=== PATIENT | female | born 1945 | race Caucasian/White ===

== ENCOUNTER → 2017-10-18 09:13 | Outpatient (CLI) | payer MEDICARE, OTHER, SELFPAY ==
--- NOTE | 2017-10-18 09:18 | RAD_ITS ---
STUDY: X-RAY CHEST REASON FOR EXAM: Female, 72 years old. 2 week history of cough. TECHNIQUE: PA and lateral views of the chest. COMPARISON: Comparison is made with prior study dated June 27, 2016. FINDINGS: The lungs are clear and expanded. There is no demonstrated pleural abnormality. Normal size heart. Normal mediastinum and rafaela. Normal visualized pulmonary arteries. There is atherosclerotic calcification of the aortic arch with tortuosity. There are diffuse degenerative changes of the visualized thoracic spine. Normal visualized ribs, clavicles, and shoulders. There is no demonstrated abnormality of the visualized soft tissue structures of the upper abdomen. RAD/Chest PA and Lateral IMPRESSION: No acute abnormality is seen. Electronically Signed: Twin Mcgill MD at 9:54 EDT Tel [phone], Service support ,
== END ==
PROVIDERS: Family Provider Nurse Practitioner; PCP Nurse Practitioner; Visit Provider Nurse Practitioner
DX: R05 Cough (principal)
CPT/HCPCS: 71046

== ENCOUNTER → 2017-10-24 19:59 | Outpatient (CLI) | payer MEDICARE, OTHER, SELFPAY | PROVIDERS: Family Provider Nurse Practitioner; PCP Nurse Practitioner; Visit Provider Internal Medicine Critical Care Medicine | DX: G47.33 Obstructive sleep apnea (adult) (pediatric) (principal) | CPT/HCPCS: 95810 ==

== ENCOUNTER → 2017-11-22 20:00 | Outpatient (CLI) | payer MEDICARE, OTHER, SELFPAY | PROVIDERS: Family Provider Nurse Practitioner; PCP Nurse Practitioner; Visit Provider Nurse Practitioner Acute Care | DX: G47.30 Sleep apnea, unspecified (principal) | CPT/HCPCS: 95811 ==

== ENCOUNTER → 2018-04-05 12:42 | Outpatient (CLI) | payer MEDICARE, OTHER, SELFPAY ==
--- NOTE | 2018-04-05 12:47 | BI_ITS ---
MAMMOGRAPHY - BILATERAL SCREENING 3-D MARIA DEL CARMEN SYNTHESIS REASON FOR EXAM: Female, 72 years old. Bilateral Screening 3-D tomosynthesis PERTINENT HISTORY: No significant family history. TECHNIQUE: 2-D mammograms and 3-D Maria Del Carmen synthesis of the breast (s) were performed. CAD was performed. COMPARISON: March 30, 2017 FINDINGS: The breast composition is composed of scattered fibroglandular density. Scattered benign calcifications are seen. No dense spiculated masses or suspicious microcalcifications are identified. No architectural distortion is identified. There is no skin thickening or retraction. There has been no significant change since the prior study. BI/SCREENING MAMM (CAD), BILAT IMPRESSION: No mammographic signs of malignancy. Routine yearly mammograms recommended. ASSESSMENT CATEGORY: BIRADS Category 1: Negative. A letter regarding these results will be sent to the patient by the facility within 30 days. FOLLOW UP RECOMMENDATION: Yearly follow up mammogram recommended. (A) Approximately 10% of breast cancers are not detected by mammography. A normal mammogram should not delay biopsy of a clinically suspicious abnormality. Electronically Signed: Donis Lagos MD at 10:51 EST , Service support ,
== END ==
PROVIDERS: Family Provider Nurse Practitioner; PCP Nurse Practitioner; Visit Provider Nurse Practitioner
DX: Z12.31 Encounter for screening mammogram for malignant neoplasm of breast (principal)
CPT/HCPCS: 77063; 77067

== ENCOUNTER 2018-06-13 12:21 | Emergency (ER) | payer MEDICARE, OTHER, SELFPAY ==
[2018-04-09 09:40] VITALS: BMI 29.9
[2018-06-13 12:24] VITALS: BP 116/71; PULSE 100; RESP 17; TEMP 36.8; O2SAT 95; O2SAT 96; BMI 27.0
[2018-06-13 12:39] VITALS: TEMP 36.8
--- NOTE | 2018-06-13 12:40 | EKG12_ITS ---
Test Reason : SYNCOPE Blood Pressure : / mmHG Vent. Rate : 095 BPM Atrial Rate : 095 BPM P-R Int : 128 ms QRS Dur : 080 ms QT Int : 344 ms P-R-T Axes : 000 023 083 degrees QTc Int : 432 ms Normal sinus rhythm Nonspecific T wave abnormality Abnormal ECG Confirmed by ANDREW MAR, ANUP ([id number]), assistant editor RACHANA ANGEL ([id number]) on 06/19/2018 8:52:14 AM Referred By: MAXIMUS Confirmed By:ANUP MORALES MD
[2018-06-13] MEDS: Ondansetron 4 MG/2 ML Vial IV (13:06)
[2018-06-13] MEDS: 0.9% Normal Saline 1,000 ML 1000 ML IV (13:06)
[2018-06-13] MEDS: Morphine 4 MG/ML Syringe IV (13:07)
[2018-06-13 13:12] LABS: Absolute Lymphocyte Count 1.25 X10^3/ul (0.83-4.51); Basophil# 0.02 X10^3/uL; Basophil% 0.1 % (0-1); Eosinophil# 0.01 X10^3/uL; Eosinophils% 0.1 % (0-5); Hematocrit 40.4 % (37-47); Hemoglobin 13.1 g/dl (12.0-15.0); Lymphocyte # 1.25 X10^3/ul (4.0); Lymphocyte % 8.8 % (19-41); Mean Corp Hgb Conc 32.4 g/gl (32-36); Mean Corpuscular Hgb 31.8 pg (27.0-32.0); Mean Corpuscular Volume 98.1 fL (81-99); Mean Platelet Vol. 10.5 fl (6.2-12.0); Monocyte# 0.86 X10^3/uL; Monocyte% 6.1 % (0-10); Neutrophil # 12.01 X10^3/uL (2.7-7.7); Neutrophil % 84.7 % (47-70); POSITIVE COUNT NO; POSITIVE DIFFERENTIAL NO; POSITIVE MORPHOLOGY NO; Platelet Count 240 K/mm3 (150-450); RBC Distribution Width CV 13.8 % (11.6-14.6); RBC Distribution Width SD 49.1 fl (35.1-43.9); Red Blood Count 4.12 M/mm3 (4.2-5.4); White Blood Count 14.2 K/mm3 (4.4-11.0)
[2018-06-13 13:22] VITALS: TEMP 37
[2018-06-13 13:26] LABS: ALB/GLOB Ratio 1.1 RATIO (0.9-2.4); AST(SGOT) 15 U/L (15-37); Alanine Aminotransfer ALT/SGPT 20 U/L (13-56); Albumin, Serum 3.8 g/dL (3.2-5.0); Alkaline Phosphatase 85 U/L (45-117); Anion Gap 7 (5-15); BUN 17 mg/dL (7-18); BUN/Creat Ratio 20.3 RATIO (10-20); Calcium,Total 8.3 mg/dL (8.5-10.1); Chloride 109 mmol/L (98-107); Creatinine, Serum 0.84 mg/dL (0.55-1.02); EST Glomerular Filtration Rate 71 mL/min (>60); Est Glom Filt Rate - Afr Amer 86 mL/min (>60); Estimated Creatinine Clearance 58.87 ml/min; Globulin 3.6 g/dL (2.2-4.2); Glucose 95 mg/dL (74-106); Protein, Total 7.4 g/dL (6.4-8.2); Sodium Level 139 mmol/L (136-145)
[2018-06-13 13:33] LABS: Lactic Acid 0.9 mmol/L (0.4-2.0)
--- NOTE | 2018-06-13 14:15 | RAD_ITS ---
STUDY: X-RAY CHEST REASON FOR EXAM: Female, 72 years old. Left-sided chest wall pain with deep breathing. Fever. TECHNIQUE: AP and lateral views of the chest. COMPARISON: Comparison is made with prior examination dated October 18, 2017. FINDINGS: EKG electrodes are seen. Hyperinflation. The lungs are clear. There is no demonstrated pleural abnormality. Normal size heart. Normal mediastinum and rafaela. Normal visualized pulmonary arteries. Normal visualized aortic arch and descending thoracic aorta. Normal visualized thoracic spine. Normal visualized ribs, clavicles, and shoulders. There is no demonstrated abnormality of the visualized soft tissue structures of the upper abdomen. RAD/Chest PA and Lateral IMPRESSION: Hyperinflation. Electronically Signed: Twin Mcgill, at 14:54 EST , Service support ,
[2018-06-13 15:30] VITALS: BP 103/68; BP 105/34; BP 116/59; PULSE 88; PULSE 93; PULSE 97
[2018-06-13 15:39] VITALS: BP 105/54; PULSE 93; RESP 16; O2SAT 97
--- NOTE | 2018-06-13 15:45 | ED.DCSUM_ITS ---
- ER Visit Summary Date of Service: 06/13/18 Chief Complaint: Fever and cough History of Present Illness: The patient is a 72 F who sees Nayely Barajas. She reports she has a fever and cough that began yesterday. She has not felt well for the past 2 days and has been laying in bed. She has not been taking in much in the way of fluids. Reports that today she had been standing in the kitchen and she had been up for less than 1 minute when she began very lightheaded. She sat down and then had a syncopal episode. She denies any injury from this. States later this afternoon she was sitting and stood up and had been standing for less than 1 minute when she had a second syncopal episode. She again denies any injury from this. No neck, back, shoulder, wrist, or hip pain. Patient reports the syncopal episodes were not accompanied by any chest pain, palpitations, abdominal pain, or other problems. Physical Examination: Vitals: Stable. Afebrile. General: Well-nourished and well-developed. Head: Normocephalic atraumatic. Neck: Supple, no lymphadenopathy. No JVD. Nontender. Cardiovascular: Regular rate and rhythm. No murmurs. Respiratory: No respiratory distress. Clear to auscultation bilaterally. Abdominal: Soft, nontender, nondistended, normal bowel sounds. No guarding, rebound, or peritoneal signs. Back: Nontender. Extremities: Nontender, no edema. Skin: Normal color, no rash. Neurologic: Alert and oriented ?3. Cranial nerves II through XII are intact. Normal strength and sensation. Psych: Normal affect. Test Results: EKG is sinus at 95 with inverted P waves inferiorly. This is unchanged from December 2014. CBC is more for white count of 14.2 with segmented neutrophils 85 lymphs lites of 9. Chloride is 109 and calcium is 8.3. Lactic acid 0.9. Flu is negative. Chest x-ray shows chronic changes. Emergency Department Course and Treatment: Patient was given a liter of normal saline and feels much improved. When I asked her again she actually reports she has had a cough for 5 weeks. She does have leukocytosis. She was given a dose of Zithromax p.o. here. Treatment Plan: Patient will be discharged with Zithromax. Instructed to push fluids. Instructed to follow-up her primary care physician 1-2 days if not improving. Return to the emergency department for any worsening symptoms. Disposition: To home in improved and stable condition. Impression: 1. URI. 2. Dehydration. 3. Syncope. This note was generated with [employer]uch[employer] dictation software. It may contain incorrect words, spelling, and punctuation that were not noted in review of the chart prior to signing ED Disposition - Plan for ED Patient: Disposition: Home or Assisted Living Instructions: ED Upper Resp Infec Abx Tx, ED Dehydration Prescriptions: Azithromycin [Zithromax Z-Brandon] 250 mg PO UD #1 box Referrals: Nayely Barajas, ACCOUNT INSTALLATION SPECIALIST-C [Primary Care Provider] - 3-5 Days if not improving
[2018-06-13 15:57] VITALS: BP 115/65; PULSE 96; RESP 19; O2SAT 98
[2018-06-13] MEDS: Azithromycin 250 MG Tablet 500 MG PO (15:57)
== END 2018-06-13 15:58 | disposition home or self-care (01) ==
LOC: ED 12:51
PROVIDERS: Emergency Provider Emergency Medicine; Family Provider Nurse Practitioner; PCP Nurse Practitioner
DX: J06.9 Acute upper respiratory infection, unspecified (principal); E86.0 Dehydration; R55 Syncope and collapse
CPT/HCPCS: 71046; 80053; 83605; 85025; 87804; 93005; 96361; 96374; 96375; 99285; J7030; A4216; J2405

== ENCOUNTER → 2018-10-10 08:14 | Outpatient (CLI) | payer MEDICARE, OTHER, SELFPAY ==
[2018-10-10 10:16] LABS: Vitamin B12 477 pg/mL (211-911)
== END ==
PROVIDERS: Family Provider Nurse Practitioner; PCP Nurse Practitioner; Referring Provider Internal Medicine Gastroenterology; Visit Provider Internal Medicine Gastroenterology
DX: E53.8 Deficiency of other specified B group vitamins (principal)
CPT/HCPCS: 36415; 82607

== ENCOUNTER → 2019-04-08 10:05 | Outpatient (CLI) | payer MEDICARE, OTHER, SELFPAY ==
--- NOTE | 2019-04-08 10:07 | BI_ITS ---
MAMMOGRAPHY - BILATERAL SCREENING 3-D TOMOSYNTHESIS REASON FOR EXAM: Female, 73 years old. FAM HX MOTHER AGE 32, 2 MAT AUNTS AGES 50S -- CURRENT PREMARIN SINCE 2010 -- NO SX PERTINENT HISTORY: No significant family history. TECHNIQUE: 2-D mammograms and 3-D Tomosynthesis of the breast (s) were performed. CAD was performed. COMPARISON: April 05, 2018. FINDINGS: The breast composition is composed of scattered fibroglandular density. Scattered benign calcifications are seen. No dense spiculated masses or suspicious microcalcifications are identified. No architectural distortion is identified. There is no skin thickening or retraction. There has been no significant change since the prior study. BI/SCREEN MAMM (CAD) W/MARIA DEL CARMEN BILAT IMPRESSION: No mammographic signs of malignancy. Routine yearly mammograms recommended. ASSESSMENT CATEGORY: BIRADS Category 1: Negative. A letter regarding these results will be sent to the patient by the facility within 30 days. FOLLOW UP RECOMMENDATION: Yearly follow up mammogram recommended. (A) Approximately 10% of breast cancers are not detected by mammography. A normal mammogram should not delay biopsy of a clinically suspicious abnormality. Electronically Signed: Morales Arias MD at 13:59 EST , Service support ,
== END ==
PROVIDERS: Family Provider Nurse Practitioner; PCP Nurse Practitioner; Referring Provider Nurse Practitioner; Visit Provider Nurse Practitioner
DX: Z12.31 Encounter for screening mammogram for malignant neoplasm of breast (principal)
CPT/HCPCS: 77063; 77067

== ENCOUNTER 2019-05-06 13:08 | Outpatient (RCR) | payer OTHER, SELFPAY ==
--- NOTE | 2019-05-06 14:16 | HP.PTEVAL_ITS ---
Patient's Visit Information IHSAN WOODARD is a 73 year old F referred to Physical Therapy by DENNIS Kan with a diagnosis of vertigo. Date of Evaluation: 05/06/19 Physical Therapist: KRISHNA Rojas - Visit Plan Frequency: 1x/Week Duration: 6 Weeks Plan: Test VOR X 1 next visit. Re-test L Hallpike for dizziness. - Subjective Findings: She walks in with the neck collar. The vertigo started about a week and a couple of days ago. Approx Apr 27. Pt woke up and went to get out of bed and about fell to the floor. She got up and was dizzy and sat at the end of the bed and turned her head as much as she could. She was in pain then as well. When she gets dizzy it last a few seconds. When she gets up she has to stand there for a few minutes and then she turns she has to turn her body instead of her head. Diagnosed a week ago with shingles. She got the shingles shot but only got one... She has been sick since 3 days after she got the shingles shot. She had problems with breathing. She is not under a lot of stress. she gets shoulder pain with the weather changes... but the L side is worse because of the shingles. The dizziness is staying about the same. She is on meclazene twice a day. - Pain shoulder pain Pain Intensity (Out of 10): 10 - Objective + Dizziness with L Hallpike but no visable nystagmus. -Dizziness with R Hallpike and no nystagmus. Repeated L Hallpike and pt was + dizziness again but no nystagmus. Treated with the L EPLY and then repeated L Hallpike and pt had no dizziness and no nystagmus. Pt had no dizziness but neck pain with L and R rotation of the c-spine. Smooth pursuits in sitting horizontal and pt had increase dizziness ( not room spinning) and no dizziness with vertical in sitting. - Goals Goal 1:: I HEP Goal Time Frame: 2 Weeks Goal 2:: Abolish dizziness when she rolls over in bed Goal Time Frame: 2-4 Weeks Goal 3:: Be able to complete VOR X 1 with walking without dizziness Goal Time Frame: 4-6 Weeks - Rehabilitation Potential Rehabilitation Potential: Good - Anticipated Interventions Thank you for the opportunity to evaluate your patient. For Medicare and Medicare HMO plans, please review the plan of care and approve it. It will need to be FAXED BACK to us at [phone] for Medicare purposes. For Medicare only, by signing this I certify the plan of care. Please let me know if there are questions or concerns regarding this plan of care. Physician Signature: Date:
--- NOTE | 2019-07-01 15:39 | HP.PT.NRP ---
IHSAN WOODARD was seen in my office for initial evaluation on 05/06/19. The following Plan of Care was established for this patient: Initial Frequency: 1x/Week Initial Duration: 6 Weeks This patient was last seen in our office 05/06/19. Pertinent comments regarding their Physical therapy will appear below: Pt was seen for initial eval and did not reschedule a follow up. She will be discharged at this time. At this point I will be discontinuing this patient from physical therapy. I would be happy to see this patient again in the future if found appropriate by the physician. Thank you! Felipa Villa, MPT
== END 2019-05-06 19:00 | disposition home or self-care (01) ==
LOC: PT 13:08
PROVIDERS: PCP Nurse Practitioner; Referring Provider Nurse Practitioner; Visit Provider Nurse Practitioner
DX: R42 Dizziness and giddiness (principal)
CPT/HCPCS: 97161

== ENCOUNTER → 2020-04-22 11:17 | Outpatient (CLI) | payer MEDICARE, SELFPAY ==
[2020-03-11 12:40] VITALS: BMI 28.0
--- NOTE | 2020-04-22 11:21 | BI_ITS ---
MAMMOGRAPHY - BILATERAL SCREENING REASON FOR EXAM: Female, 74 years old. Routine annual screening examination. PERTINENT HISTORY: Mother with breast cancer. Aunt with breast cancer. TECHNIQUE: Digital bilateral breast maria del carmen (3D mammographic acquisition) in the CC and MLO projections. 2-D mediolateral oblique (MLO) and craniocaudad (CC) views of both breasts were obtained. CAD: Full Field Digital Mammography with Computer Added Detection was performed. COMPARISON: Comparison is made with prior examination dated 04/08/2019 and 04/05/2018. FINDINGS: Breast Composition: The breasts are heterogeneously dense, which may obscure small masses. There are no dominant masses or suspicious calcifications. No other significant abnormalities are identified. There has been no significant change since the prior study. BI/SCREEN MAMM (CAD) W/MARIA DEL CARMEN BILAT IMPRESSION: Stable bilateral screening mammogram. Yearly follow-up mammogram recommended. (A) ASSESSMENT CATEGORY: BIRADS Category 1: Negative. A letter regarding these results will be sent to the patient by the facility within 30 days. Approximately 10% of breast cancers are not detected by mammography. A normal mammogram should not delay biopsy of a clinically suspicious abnormality. [id number] Electronically Signed: Twin Mcgill, at 12:27 EST , Service support ,
--- NOTE | 2020-04-22 11:23 | BD_ITS ---
STUDY: DUAL ENERGY X-RAY ABSORPTIOMETRY / DXA REASON FOR EXAM: Female, 74 years old. RECRUITMENT INTERNSHIP-SURGICAL EARLY AT 39 YRS OLD -- HX OF HRT -- TAKES CALCIUM AND MULTIVITAMIN IRREGULARLY -- HX OF FOSAMAX IN PAST -- DOES MODERATE AMOUNT OF EXERCISE -- HX OF ANKLE FX -- HX OF L4-5 FUSION -- RAMONA OF 0.5 INCH TECHNIQUE: Bone Mineral Density (BMD) measurements of lumbar spine and bilateral hips were obtained. COMPARISON: Comparison is made with prior study dated 10/04/2016. FINDINGS: Lumbar Spine (L1-L4): g/cm2 (1.00 to) / T-score (-1.4) / Z-score (0.3) Findings are suggestive of osteopenia with a low fracture risk. Left Femur Total: g/cm2 (0.766) / T-score (-1.9) / Z-score (-0.2) Left Femoral Neck: g/cm2 (0.734) / T-score (-2.2) / Z-score (-0.3) Right Femur Total: g/cm2 (0.725) / T-score (-2.2) / Z-score (-0.5) Right Femoral Neck: g/cm2 (0.725) / T-score (-2.3) / Z-score (-0.4) The T-Scores on the most recent prior examination were: Lumbar Spine (L1-L4): There has been worsening of bone density since the previous examination. Left Femur Total: which represents a worsening of 3.5%. Right Femur Total: which represents a worsening of 0.4%. BD/Dexa Bone Density Study IMPRESSION: The patient is considered osteopenic as outlined below according to World Kg Organization (WHO) criteria with a high fracture risk. There has been worsening of bone density since the previous examination. Reference Information: The T-score is the number of standard deviations above or below the standard which is normal for young adults at their peak bone mineral density. The World Health Organization (WHO) interprets the T-scores as follows: Above -1 Normal bone density Between -1 and -2.5 Osteopenia Equal to / or below -2.5 Osteoporosis As a practical clinical guideline, osteopenia may be graded as follows: Mild -1 through -1.5 Moderate -1.6 through -2.0 Severe -2.1 through -2.4 The Z-score is the number of standard deviations above or below age-matched controls. A Z-score of less than -1.5 would be considered abnormal. References: 1. NIH Osteoporosis and Related Bone Diseases www osteo.org 2. International Society for Clinical Densitometry www iscd.org 3. National Osteoporosis Foundation www nof.org Electronically Signed: Twin Mcgill, at 15:53 EST , Service support ,
== END ==
PROVIDERS: PCP Nurse Practitioner; Referring Provider Nurse Practitioner; Visit Provider Nurse Practitioner
DX: Z78.0 Asymptomatic menopausal state (principal); Z12.31 Encounter for screening mammogram for malignant neoplasm of breast
CPT/HCPCS: 77063; 77067; 77080

== ENCOUNTER → 2020-10-28 15:04 | Outpatient (CLI) | payer MEDICARE, SELFPAY ==
[2020-03-11 12:40] VITALS: BMI 28.0
[2020-11-03 07:07] LABS: Endomysial Antibody IgA Negative (Negative); Immunoglobulin A 111 mg/dL (64-422)
[2020-11-03 16:50] LABS: Anti-Parietal Cell AB, QN 19.9 Units (0.0-20.0); Intrinsic Factor Ab 1.1 AU/mL (0.0-1.1); t-Transglutaminase IgA <2 U/mL (0-3)
== END ==
PROVIDERS: PCP Nurse Practitioner; Referring Provider Internal Medicine Gastroenterology; Visit Provider Internal Medicine Gastroenterology
DX: E53.8 Deficiency of other specified B group vitamins (principal)
CPT/HCPCS: 36415; 82784; 83516; 86255; 86340

== ENCOUNTER → 2021-03-22 14:32 | Outpatient (CLI) | payer MEDICARE, SELFPAY ==
--- NOTE | 2021-03-22 14:40 | RAD_ITS ---
STUDY: XR Chest 2 Views 03/22/2021 2:41 PM REASON FOR EXAM: Female, 75 years old. CHEST PAIN COUGH COMPARISON: 06/13/2018 TECHNIQUE: XR Chest 2 Views FINDINGS: There is no demonstrated pleural abnormality. Normal heart size. Normal mediastinum. Normal rafaela. Prominent appearing increased interstitial lung markings. Normal visualized pulmonary arteries. There is atherosclerotic calcification of the aortic arch with tortuosity. There are diffuse degenerative changes of the visualized thoracic spine. There is degenerative osteoarthritis of the bilateral shoulders. There is no demonstrated abnormality of the visualized soft tissue structures of the upper abdomen. RAD/Chest PA and Lateral IMPRESSION: There are no acute findings. Electronically Signed: Derek Colindres MD at 18:33 EST , Service support ,
[2021-03-22 17:59] LABS: Hematocrit 43.2 % (37-47); Hemoglobin 13.7 g/dL (12.0-15.0); Mean Corp Hgb Conc 31.7 g/dL (32-36); Mean Corpuscular Hgb 30.8 pg (27.0-32.0); Mean Corpuscular Volume 97.1 fL (81-99); Mean Platelet Vol. 10.2 fl (6.2-12.0); Platelet Count 275 K/mm3 (150-450); RBC Distribution Width CV 13.2 % (11.6-14.6); RBC Distribution Width SD 47.6 fl (35.1-43.9); Red Blood Count 4.45 M/mm3 (4.2-5.4); White Blood Count 6.8 K/mm3 (4.4-11.0)
[2021-03-22 18:16] LABS: Albumin, Serum 4.3 g/dL (3.2-5.0); BUN 13 mg/dL (7-18); BUN/Creat Ratio 15.2 RATIO (10-20); Calcium,Total 9.6 mg/dL (8.5-10.1); Chloride 104 mmol/L (98-107); Creatinine, Serum 0.86 mg/dL (0.55-1.02); EST Glomerular Filtration Rate 69 mL/min (>60); Est Glom Filt Rate - Afr Amer 83 mL/min (>60); Glucose 81 mg/dL (74-106); Phosphorus 4.1 mg/dL (2.5-4.9); Potassium 4.7 mmol/L (3.5-5.1); Sodium Level 137 mmol/L (136-145)
== END ==
PROVIDERS: PCP Nurse Practitioner; Referring Provider Nurse Practitioner; Visit Provider Nurse Practitioner
DX: J02.9 Acute pharyngitis, unspecified (principal); R05.9 Cough, unspecified
CPT/HCPCS: 36415; 71046; 80069; 85027; 87633

== ENCOUNTER 2021-04-23 11:41 | Outpatient (CLI) | payer MEDICARE, SELFPAY ==
--- NOTE | 2021-04-23 11:43 | BI_ITS ---
MAMMOGRAPHY - BILATERAL SCREENING REASON FOR EXAM: Female, 75 years old. Routine annual screening examination. PERTINENT HISTORY: Mother with breast cancer. Aunts with breast cancer. TECHNIQUE: Digital bilateral breast maria del carmen (3D mammographic acquisition) in the CC and MLO projections. 2-D mediolateral oblique (MLO) and craniocaudad (CC) views of both breasts were obtained. CAD: Full Field Digital Mammography with Computer Added Detection was performed. COMPARISON: Comparison is made with prior study dated 04/22/2020 and 04/08/2019. FINDINGS: Breast Composition: The breasts are heterogeneously dense, which may obscure small masses. There are no dominant masses or suspicious calcifications. There is a 4.8 mm x 4 mm well-defined nodule in the deep upper lateral aspect of the left breast. Correlation with ultrasound is recommended. No other significant abnormalities are identified. BI/SCRN MAMM (CAD)W/MARIA DEL CARMEN BILAT IMPRESSION: New 4.8 mm x 4 mm well-defined nodule in the deep upper lateral aspect of the left breast. Correlation with ultrasound is recommended. ASSESSMENT CATEGORY: BIRADS Category 0: Incomplete. Need additional imaging evaluation. A letter regarding these results will be sent to the patient by the facility within 30 days. Approximately 10% of breast cancers are not detected by mammography. A normal mammogram should not delay biopsy of a clinically suspicious abnormality. [id number] Electronically Signed: Twin Mcgill MD at 12:31 EST , Service support ,
== END 2021-04-23 23:59 | disposition short-term general hospital (02) ==
LOC: OPBI 11:42
PROVIDERS: PCP Nurse Practitioner; Referring Provider Nurse Practitioner; Visit Provider Nurse Practitioner
DX: Z12.31 Encounter for screening mammogram for malignant neoplasm of breast (principal)
CPT/HCPCS: 77063; 77067

== ENCOUNTER 2021-04-28 10:40 | Outpatient (CLI) | payer MEDICARE, SELFPAY ==
--- NOTE | 2021-04-28 10:43 | US_ITS ---
STUDY: ULTRASOUND BREAST - LEFT REASON FOR EXAM: Female, 75 years old. Abnormal screening mammogram. TECHNIQUE: Axial and longitudinal images of the LEFT breast were performed with a high resolution ultrasound transducer. # OF IMAGES: 25 COMPARISON: Comparison is made with prior mammogram dated 04/23/2021. FINDINGS: LEFT Breast: There is a 7 mm x 7 mm x 3 mm solid and cystic nodule at the 4 o''clock position of the breast at 5 cm from nipple. Biopsy recommended. US/Breast Limited Unilateral IMPRESSION: The mammographic abnormality corresponds to a 7 mm x 7 mm x 3 mm solid and cystic nodule at the 4 o''clock position of the breast at 5 cm from the nipple. Biopsy is recommended. ASSESSMENT CATEGORY: BIRADS Category 4: Suspicious - Biopsy Should Be Considered. A letter regarding these results will be sent to the patient by the facility within 30 days. Electronically Signed: Twin Mcgill MD at 11:16 EST , Service support ,
== END 2021-04-28 23:59 | disposition short-term general hospital (02) ==
LOC: OPUS 10:41
PROVIDERS: PCP Nurse Practitioner; Referring Provider Nurse Practitioner; Visit Provider Nurse Practitioner
DX: R92.8 Other abnormal and inconclusive findings on diagnostic imaging of breast (principal)
CPT/HCPCS: 76642

== ENCOUNTER 2021-04-30 07:54 | Outpatient (CLI) | payer MEDICARE, SELFPAY ==
--- NOTE | 2021-04-30 07:30 | BRBX_PTH ---
PATIENT: IHSAN WOODARD LOC: [facility] U#:[id number] AGE/SX: 75/F ROOM: RE04/30/[address]: Dr. Antonino Frost MD : 1945 BED: DIS: 04/30/2021 SPEC #: [id number] RECD: 04/30/21 10:26 STATUS: VASQUEZ RAÚL #: [id number] NOMAN: 04/30/21 07:[address]: Antonino Frost DEPT: SURGICAL PATHOLOGY RECD BY: Asia Gomez ENTERED: 04/30/21 11:39 SP TYPE: BREAST BX OTHR DR: Nayely Barajas, CHARTER REPRESENTATIVE-C Tissues: Left breast, NOS Procedures: Surgery Specimen Level IV HEADER OPERATION: Left breast biopsy PRE-OP DIAGNOSIS: Abnormal breast ultrasound TISSUE SUBMITTED: Left breast tissue MICROSCOPIC DIAGNOSIS Left breast, biopsy: Fibrocystic changes. Negative for atypia or malignancy. See comment. SJ:bennie 05/03/2021 COMMENT Correlation with clinical, radiologic findings and appropriate follow up are necessary. MICROSCOPIC DESCRIPTION Slides are reviewed. GROSS DESCRIPTION Received in fixative is one container labeled with the patient's name and designated left breast. The specimen consists of multiple elongated fragments of christie-yellow fibroadipose tissue that in aggregate measure 0.8 x 0.3 x 0.1 cm. The entire specimen is submitted in one cassette. / SJ:rg 04/30/2021 TC:5 CPT: 57684
--- NOTE | 2021-04-30 08:03 | BI_ITS ---
MAMMOGRAPHY - UNILATERAL DIAGNOSTIC: LEFT BREAST REASON FOR EXAM: Female, 75 years old. Post left ultrasound-guided breast biopsy. Clip. PERTINENT HISTORY: Abnormal screening mammogram. TECHNIQUE: Mediolateral oblique and craniocaudad views of the left breast were obtained following the biopsy. CAD: Full Field Digital Mammography with Computer Added Detection was performed. COMPARISON: Comparison is made with prior mammogram dated 10/21/2021. FINDINGS: Breast Composition: The breasts are heterogeneously dense, which may obscure small masses. A tissue clip marker is seen in the deep central lateral aspect of the breast and around the 3 o''clock position. No other significant abnormalities are identified. BI/DIAG MAMM W/CAD, UNILAT IMPRESSION: Tissue clip marker is seen in the region of the 3 o''clock position of the left breast. ASSESSMENT CATEGORY: BIRADS Category 2: Benign. A letter regarding these results will be sent to the patient by the facility within 30 days. Approximately 10% of breast cancers are not detected by mammography. A normal mammogram should not delay biopsy of a clinically suspicious abnormality. Electronically Signed: Twin Mcgill MD at 9:22 EST , Service support ,
== END 2021-04-30 23:59 | disposition short-term general hospital (02) ==
PROVIDERS: PCP Nurse Practitioner; Referring Provider Surgery; Visit Provider Surgery
DX: N60.12 Diffuse cystic mastopathy of left breast (principal)
CPT/HCPCS: 77065; 88305

== ENCOUNTER 2021-05-04 09:51 | Outpatient (CLI) | payer MEDICARE, SELFPAY ==
--- NOTE | 2021-05-04 09:54 | BI_ITS ---
MAMMOGRAPHY - UNILATERAL DIAGNOSTIC: LEFT BREAST REASON FOR EXAM: Female, 75 years old. Abnormal screening mammogram. PERTINENT HISTORY: Mother with breast cancer. Aunts with breast cancer. TECHNIQUE: Compression spot views of the left breast in the mediolateral oblique and craniocaudad views were obtained. CAD: Full Field Digital Mammography with Computer Added Detection was performed. COMPARISON: Comparison is made with prior mammogram dated 04/23/2021 and 10/28/2021. FINDINGS: Breast Composition: The breasts are heterogeneously dense, which may obscure small masses. There is a persistent 5 mm x 5 mm well-defined rounded density in the deep lateral axillary region. Correlation with ultrasound is recommended. No other significant abnormalities are identified. BI/DIAG MAMM W/CAD, UNILAT IMPRESSION: Persistent 5 mm x 5 mm well-defined rounded nodular density in the deep lateral axillary region of the left breast. Correlation with ultrasound is recommended. ASSESSMENT CATEGORY: BIRADS Category 0: Incomplete. Need additional imaging evaluation. A letter regarding these results will be sent to the patient by the facility within 30 days. Approximately 10% of breast cancers are not detected by mammography. A normal mammogram should not delay biopsy of a clinically suspicious abnormality. Electronically Signed: Twin Mcgill MD at 10:44 EST ,
--- NOTE | 2021-05-04 09:54 | US_ITS ---
STUDY: ULTRASOUND BREAST - LEFT REASON FOR EXAM: Female, 75 years old. Abnormal screening mammogram. TECHNIQUE: Axial and longitudinal images of the LEFT breast were performed with a high resolution ultrasound transducer. # OF IMAGES: 29 COMPARISON: Comparison is made with prior repeat mammogram done earlier today. FINDINGS: LEFT Breast: The well-defined 5 mm x 5 mm nodule seen in the deep axillary region of the breast is not visualized on the ultrasound due to its positioning in the deep part of the breast adjacent to the pectoralis muscle. Correlation with a CT scan of the thorax is recommended for further evaluation if clinically indicated. US/Breast Limited Unilateral IMPRESSION: The 5 mm nodular density is not visualized due to its position. Unenhanced CT scan of the thorax is recommended for further evaluation if clinically indicated. ASSESSMENT CATEGORY: BIRADS Category 0: Incomplete. Need additional imaging evaluation. A letter regarding these results will be sent to the patient by the facility within 30 days. Electronically Signed: Twin Mcgill MD at 11:07 EST ,
== END 2021-05-04 23:59 | disposition short-term general hospital (02) ==
PROVIDERS: PCP Nurse Practitioner; Visit Provider Surgery
DX: R92.8 Other abnormal and inconclusive findings on diagnostic imaging of breast (principal); Z80.3 Family history of malignant neoplasm of breast
CPT/HCPCS: 76642; 77065

== ENCOUNTER 2021-05-10 12:24 | Outpatient (CLI) | payer MEDICARE, SELFPAY ==
--- NOTE | 2021-05-10 12:24 | MRI_ITS ---
STUDY: BILATERAL BREAST MR WITHOUT AND WITH CONTRAST REASON FOR EXAM: Female, 75 years old. Abnormal mammogram and axillary region of left breast. TECHNIQUE: Multi-sequence multi-echo imaging of both breasts was performed with a dedicated breast coil. T1-weighted and T2-weighted images were performed before the administration of contrast. T1-weighted images were also performed after the administration of 15 mL of Dotarem contrast without complications. COMPARISON: Diagnostic left mammogram dated 05/04/2021 and limited left breast ultrasound dated 05/04/2021. FINDINGS: RIGHT BREAST: The breast tissue is scattered fibroglandular densities with minimal background enhancement. There are no abnormal enhancing masses or areas of non-mass enhancement in the right breast. LEFT BREAST: The breast tissue is scattered fibroglandular densities with minimal background enhancement. There are no abnormal enhancing masses or areas of non-mass enhancement in the left breast. There are no enlarged or abnormal lymph nodes. There is no abnormality in the visualized regions of the chest or liver. MRI/Breast Bilateral W/O and W IMPRESSION: No abnormality on the breast MRI with contrast. Annual screening mammogram would be appropriate. CATEGORY: BIRADS Category 2: Benign. A letter regarding these results will be sent to the patient by the facility within 30 days. Electronically Signed: Donis Lagos MD at 9:30 EST ,
[2021-05-10 16:20] LABS: CREATININE FINGERSTICK 0.9 mg/dL (0.55-1.02); EGFR FINGERSTICK > 60.0000 mL/min (>60)
== END 2021-05-10 23:59 | disposition short-term general hospital (02) ==
LOC: MRI 12:24
PROVIDERS: PCP Nurse Practitioner; Referring Provider Surgery; Visit Provider Surgery
DX: Z12.31 Encounter for screening mammogram for malignant neoplasm of breast (principal)
CPT/HCPCS: 77049; A9575; A4216; C8908

== ENCOUNTER → 2021-11-29 | Outpatient (CLI) | payer MEDICARE, SELFPAY ==
--- NOTE | 2021-11-29 13:06 | BI_ITS ---
MAMMOGRAPHY - UNILATERAL DIAGNOSTIC: LEFT BREAST REASON FOR EXAM: Female, 76 years old. Six-month follow-up for left breast nodule. PERTINENT HISTORY: Mother with breast cancer. Aunts with breast cancer. TECHNIQUE: Digital unilateral breast loren (3D mammographic acquisition) in the CC and MLO projections. 2-D mediolateral oblique (MLO) and craniocaudad (CC) views of both breasts were obtained. CAD: Full Field Digital Mammography with Computer Added Detection was performed. COMPARISON: Comparison is made with prior mammogram dated 05/04/2021. FINDINGS: Breast Composition: The breasts are heterogeneously dense, which may obscure small masses. Persistent 5 mm x 5 mm well-defined nodule in the deep lateral axial region of the left breast. A tissue marker is seen in the deep slightly lateral aspect of the left breast. No other significant abnormalities are identified. BI/DIAG MAMM W/CAD, UNILAT IMPRESSION: Stable 5 mm well-defined nodule in the deep aspect of the left breast as described. Correlation with ultrasound recommended. ASSESSMENT CATEGORY: BIRADS Category 0: Incomplete. Need additional imaging evaluation. A letter regarding these results will be sent to the patient by the facility within 30 days. Approximately 10% of breast cancers are not detected by mammography. A normal mammogram should not delay biopsy of a clinically suspicious abnormality. Electronically Signed: Twin Mcgill MD at 14:45 EDT ,
--- NOTE | 2021-11-29 13:52 | US_ITS ---
STUDY: ULTRASOUND BREAST - LEFT REASON FOR EXAM: Female, 76 years old. Abnormal screening mammogram. TECHNIQUE: Axial and longitudinal images of the LEFT breast were performed with a high resolution ultrasound transducer. # OF IMAGES: 31 COMPARISON: Comparison is made with prior mammogram done earlier in the day as well as prior ultrasound dated 05/04/2021. FINDINGS: LEFT Breast: The 5 mm nodule in the deep axillary region of the left breast is not visualized on ultrasound. US/Breast Limited Unilateral IMPRESSION: Unremarkable sonogram. ASSESSMENT CATEGORY: BIRADS Category 1: Negative. A letter regarding these results will be sent to the patient by the facility within 30 days. Electronically Signed: Twin Mcgill MD at 9:50 EDT ,
== END | disposition home or self-care (01) ==
PROVIDERS: PCP Nurse Practitioner Family; Visit Provider Surgery
DX: R92.8 Other abnormal and inconclusive findings on diagnostic imaging of breast (principal); N63.20 Unspecified lump in the left breast, unspecified quadrant; Z80.3 Family history of malignant neoplasm of breast
CPT/HCPCS: 76642; 77061; 77065; G0279

== ENCOUNTER → 2022-05-04 | Outpatient (CLI) | payer MEDICARE, SELFPAY ==
--- NOTE | 2022-05-04 08:05 | BI_ITS ---
MAMMOGRAPHY - BILATERAL DIAGNOSTIC REASON FOR EXAM: Female, 76 years old. Prior left breast biopsy. PERTINENT HISTORY: Mother with breast cancer. Aunt with breast cancer. TECHNIQUE: Digital bilateral breast loren (3D mammographic acquisition) in the CC and MLO projections. 2-D mediolateral oblique (MLO) and craniocaudad (CC) views of both breasts were obtained. CAD: Full Field Digital Mammography with Computer Added Detection was performed. COMPARISON: Comparison is made with prior study 10/21/2021 and 11/29/2021. FINDINGS: Breast Composition: The breasts are heterogeneously dense, which may obscure small masses. There are no dominant masses or suspicious calcifications. A tissue clip marker is seen in the deep central lateral portion of the left breast from prior biopsy. No other significant abnormalities are identified. There has been no significant change since the prior study. BI/DIAG MAMM W/CAD, BILAT IMPRESSION: Stable bilateral diagnostic mammogram. One year follow-up recommended. (A) ASSESSMENT CATEGORY: BIRADS Category 2: Benign. A letter regarding these results will be sent to the patient by the facility within 30 days. Approximately 10% of breast cancers are not detected by mammography. A normal mammogram should not delay biopsy of a clinically suspicious abnormality. Electronically Signed: Twin Mcgill MD at 8:51 EST ,
--- NOTE | 2022-05-04 08:12 | BD_ITS ---
STUDY: DUAL ENERGY X-RAY ABSORPTIOMETRY / DXA REASON FOR EXAM: Female, 76 years old. [id number] TECHNIQUE: Bone Mineral Density (BMD) measurements of lumbar spine and bilateral hips were obtained. COMPARISON: Comparison is made with prior study dated 04/22/2020. FINDINGS: Lumbar Spine (L1-L4): g/cm2 (0.834) / T-score (-1.7) / Z-score (0.8) Findings are suggestive of osteopenia with a moderate fracture risk. Left Femur Total: g/cm2 (0.735) / T-score (-1.7) / Z-score (0.2) Left Femoral Neck: g/cm2 (0.672) / T-score (-1.6) / Z-score (0.6) Right Femur Total: g/cm2 (0.715) / T-score (-1.9) / Z-score (0.0) Right Femoral Neck: g/cm2 (0.642) / T-score (-1.9) / Z-score (0.3) The T-Scores on the most recent prior examination were: Lumbar Spine (L1-L4): There has been worsening of bone density since the previous examination. Left Femur Total: which represents an improvement of 4%. Right Femur Total: which represents an improvement of 7.2%. BD/Dexa Bone Density Study IMPRESSION: The patient is considered osteopenic as outlined below according to World Kg Organization (WHO) criteria with a moderate fracture risk. There has been improvement of bone density since the previous examination. Reference Information: The T-score is the number of standard deviations above or below the standard which is normal for young adults at their peak bone mineral density. The World Health Organization (WHO) interprets the T-scores as follows: Above -1 Normal bone density Between -1 and -2.5 Osteopenia Equal to / or below -2.5 Osteoporosis As a practical clinical guideline, osteopenia may be graded as follows: Mild -1 through -1.5 Moderate -1.6 through -2.0 Severe -2.1 through -2.4 The Z-score is the number of standard deviations above or below age-matched controls. A Z-score of less than -1.5 would be considered abnormal. References: 1. NIH Osteoporosis and Related Bone Diseases www osteo.org 2. International Society for Clinical Densitometry www iscd.org 3. National Osteoporosis Foundation www nof.org Electronically Signed: Twin Mcgill MD at 9:42 EST ,
--- NOTE | 2022-05-04 08:56 | US_ITS ---
STUDY: ULTRASOUND BREAST - LEFT REASON FOR EXAM: Female, 76 years old. Follow-up of left breast mass. TECHNIQUE: Axial and longitudinal images of the LEFT breast were performed with a high resolution ultrasound transducer. # OF IMAGES: 40 COMPARISON: Comparison is made with prior mammogram done earlier today as well as prior sonogram of the left breast dated 11/29/2021. FINDINGS: LEFT Breast: The lateral half of the left breast was examined with ultrasound. There is a probable glandular tissue. No sonographic abnormality is seen. US/Breast Limited Unilateral IMPRESSION: No sonographic abnormality is seen. ASSESSMENT CATEGORY: BIRADS Category 1: Negative. A letter regarding these results will be sent to the patient by the facility within 30 days. Electronically Signed: Twin Mcgill MD at 12:01 EST ,
== END | disposition home or self-care (01) ==
PROVIDERS: PCP Nurse Practitioner Family; Referring Provider Nurse Practitioner Family; Visit Provider Nurse Practitioner Family
DX: R92.8 Other abnormal and inconclusive findings on diagnostic imaging of breast (principal); Z78.0 Asymptomatic menopausal state
CPT/HCPCS: 76642; 77062; 77066; 77080; G0279

== ENCOUNTER → 2022-05-11 | Outpatient (CLI) | payer MEDICARE, SELFPAY ==
--- NOTE | 2022-05-11 10:33 | RAD_ITS ---
STUDY: X-RAY CHEST REASON FOR EXAM: Female, 76 years old. ABNORMAL LUNG SOUNDS TECHNIQUE: PA and lateral views of the chest. COMPARISON: Comparison is made with prior study dated 03/22/2001. FINDINGS: Hyperinflation. There is no demonstrated pleural abnormality. Normal size heart. Normal mediastinum and rafaela. Normal visualized pulmonary arteries. There is atherosclerotic calcification of the aortic arch with tortuosity. There is demineralization of the osseous structures. Normal visualized ribs, clavicles, and shoulders. There is no demonstrated abnormality of the visualized soft tissue structures of the upper abdomen. RAD/Chest PA and Lateral IMPRESSION: Hyperinflation. The lungs are clear. Electronically Signed: Twin Mcgill MD at 10:56 EST ,
== END | disposition home or self-care (01) ==
PROVIDERS: PCP Nurse Practitioner Family; Referring Provider Nurse Practitioner Family; Visit Provider Nurse Practitioner Family
DX: R09.89 Other specified symptoms and signs involving the circulatory and respiratory systems (principal)
CPT/HCPCS: 71046

== ENCOUNTER 2022-09-20 13:56 | Emergency (ER) | payer MEDICARE, SELFPAY ==
[2022-09-20 13:57] VITALS: BP 125/97; PULSE 82; RESP 18; TEMP 35.4; O2SAT 100
--- NOTE | 2022-09-20 15:18 | VDLE_ITS ---
Reason For Study: Lt Leg Pain RIGHT LEFT CFV is compressible, spontaneous, phasic, GSV is normal. competent and demonstrates normal CFV is compressible, spontaneous, phasic, augmentation. competent, and demonstrates normal Procedure augmentation. This is a venous duplex using B-mode, color FV is compressible, spontaneous, phasic, flow and spectral Doppler. competent and demonstrates normal Exam performed portable in ED. augmentation. The exam was diagnostic. POP V is compressible, spontaneous, phasic, A preliminary report was called and/or faxed competent and demonstrates normal to Dr. Serrano. augmentation. T/P Trunk is compressible. PTV is compressible. LT PerV is compressible. VL/Venous Duplex US, Unilateral Interpretation Summary There is no evidence of left lower extremity deep vein thrombosis. Left great s aphenous vein appears patent and compressible segmentally. Normal flow patterns right common femoral vein Ordering Physician: Anton Serrano Referring Physician: Paige Saldana Performed By: Adithya De Oliveira RVT
--- NOTE | 2022-09-20 15:19 | ED.VIS.BACK ---
HPI History of Present Illness Chief Complaint: Back Informant: patient and spouse/S.O. Narrative Narrative: Patient presents with what she describes as exacerbation of her sciatica pain. Patient states she used to have a lot of problems with her back and sciatica. She had discectomy and what sounds like a fusion in 2013 and 2014. She is generally done pretty well since. Occasionally she will get pain and she will take Tylenol. About 3 weeks ago she was trying to carry and move a couch with her . It was heavy. She ended up bending hurting her back dropping it on her foot. But her foot is not bothering her. Ever since then she has had some pain across her lower back. It will radiate to the buttock on the left and occasionally will radiate down the left leg on the posterior medial aspect to just a little below the knee. It never radiates down the right side. She has no bowel or bladder does rupture and function. She is eating and drinking normally. No rashes. She has no weakness. But when she bears weight it does hurt more in the back and the left leg. [facility] Medical History Celiac disease Depression Hypercholesteremia Nocturia more than twice per night GILBERT (obstructive sleep apnea) Sleep apnea Vitamin D deficiency, unspecified Home Medications multivitamin with iron 1 ea PO DAILY 07/31/16 [History Last Taken Unknown] xblvczn-pslymqtkx-ovzh tablet tab PO 09/27/17 [History Last Taken Unknown] cholecalciferol (vitamin D3) 50 mcg (2,000 unit) capsule 2,000 unit PO QDAY 09/27/17 [History Last Taken Unknown] sertraline 25 mg tablet (Zoloft) 25 mg PO QDAY 09/27/17 [History Last Taken Unknown] conjugated estrogens 0.625 mg tablet (Premarin) 0.625 mg PO DAILY 03/28/19 [History Last Taken Unknown] rosuvastatin 5 mg tablet 5 mg PO DAILY 03/28/19 [History Last Taken Unknown] azithromycin 250 mg tablet (Zithromax Z-Brandon) See Rx Instructions PO .COMPLEX #6 tabs 05/07/22 [Rx Last Taken Unknown] hydrocodone-acetaminophen 5-325mg 5mg-325mg 1 tab PO Q6H PRN PRN Pain 3 days #10 TABLETS 09/20/22 [Rx Last Taken Unknown] prednisone 20 mg tablet 60 mg PO DAILY #15 TABLETS 09/20/22 [Rx Last Taken Unknown] Allergy/AdvReac Type Severity Reaction Status Date / Time Iodinated Contrast Media Allergy Mild unsure Verified 05/13/22 14:04 Sulfa (Sulfonamide Allergy Unknown can use Verified 05/13/22 14:04 Antibiotics) externally,not internally,unknown reaction when baby codeine Allergy Hives Verified 05/13/22 14:04 gluten Allergy CELIAC'S Verified 05/13/22 14:04 DISEASE Family History Mother Cancer Breast cancer Father Suicide Brother Alcoholic Surgical History H/O bladder repair surgery H/O cataract extraction H/O hernia repair H/O: hysterectomy History of colonoscopy (~2016) S/P spinal surgery Social History Smoking Status: Never smoker alcohol intake: current alcohol intake frequency: holidays/special occasions only substance use type: does not use ROS ROS ED ROS Narrative A complete review of systems was performed and is negative except as documented in the history of present illness. Some specific details below. Constitutional: No recent fevers or chills. No rigors. Patient has not generally felt ill. ENT: No sinus pressure or pain. No nasal discharge. CV: No chest pain, pressure or aching. No palpitations or irregular beats. Patient has not been presyncopal or syncopal. Respiratory: No trouble breathing. No cough. No wheezing. No sputum production. No pain with breathing. GI: No abdominal pain. No nausea vomiting diarrhea. No blood in stool. No loss of bowel control. No history of AAA. : No frequency dysuria or hematuria. No incontinence or urinary retention. Musculoskeletal: No recent direct trauma or fall but she did twist while lifting a couch as in history of present illness.. No swelling. Please see history of present illness. Skin: No rash. No diaphoresis. No vesicles. Neuro: No weakness or numbness. She does have some pain that intermittently radiates down the left leg to just below the left knee. No weakness of ambulation but she does have pain. No sensory changes in the extremities. Please see history of present illness also. Endocrine: No polyuria or polydipsia. EXAM Physical Exam Narrative Exam Narrative: CONSTITUTIONAL: Patient is nontoxic in appearance. The patient looks comfortable. Work of breathing looks normal. HEENT: No notable trauma. Mucous membranes moist. No sinus tenderness. No sign of dental infection. EYES: No conjunctival injection. No pallor. NECK: No meningismus. No JVD. CARDIOVASCULAR: Regular rate. Regular rhythm. No notable murmur. No JVD. RESPIRATORY: No respiratory distress. Breathing is unlabored. No wheezes. No rhonchi. No rales. No pain with a deep breath. GASTROINTESTINAL: Not distended. Bowel sounds are normal. No tenderness. No guarding. No rebound. No palpable mass. No bruit. GENITOURINARY: No tenderness over the bladder. No CVA tenderness. MUSCULOSKELETAL: Atraumatic. No peripheral edema. No cord. I am not seeing asymmetry. But her pain does go along the path of the sartorius on the left. No rashes or swelling. She also has some mild sciatic notch tenderness on the left side. She has well-healed surgical scars on her lower back both midline and left of center. No rashes are noted. NEUROLOGICAL: Patient is alert and oriented. No focal deficit noted. There is no weakness. No sensory change. Reflexes are normal and equal. SKIN: No noted rashes. No diaphoresis. No vesicles noted. No notable pallor. There is a small abrasion to the left side of her lower thompson but this area is not causing her problems and there is no sign of infection. PSYCHIATRIC: Patient is calm. Mood is appropriate. Const Vital Signs: 09/20/22 13:57 Temperature 95.7 F L Temperature Source Temporal Pulse Rate 82 Respiratory Rate 18 Blood Pressure 125/97 H Blood Pressure Mean 106 Pulse Ox 100 Oxygen Delivery Method Room Air MDM MDM MDM Narrative Medical decision making narrative: Patient's ultrasound is negative for DVT. We did this because her pain is right along the course of the deep venous system. Her symptoms are consistent with her history of sciatica. There is no bowel bladder dysfunction or sign of infection. No history of cancer chemotherapy. We will start her on prednisone hoping to decrease inflammation. We will write for a few hydrocodone to control symptoms in between. I attempted to do an online prescribing report review but unable to due to system being down currently. Radiography Diagnostic Testing: Clinical Impression(s) from Imaging Studies Venous Doppler Study 09/20/22 15:18 Interpretation Summary There is no evidence of left lower extremity deep vein thrombosis. Left great saphenous vein appears patent and compressible segmentally. Normal flow patterns right common femoral vein Ordering Physician: Anton Serrano Referring Physician: Paige Saldana Performed By: Adithya De Oliveira RVT Discharge Plan Triage Chief Complaint: Back ED Provider: Anton Serrano Dx/Rx/DC Orders Clinical Impression: Back pain, Sciatica Instructions: ED Back Pain (Acute or Chronic), ED Sciatica Prescriptions: New hydrocodone-acetaminophen [hydrocodone-acetaminophen] 5-325 mg tablet 1 tab PO Q6H PRN PRN (Reason: Pain) 3 Days Qty: 10 0RF Rx Instructions: May take Benadryl if this causes an itch. prednisone 20 mg tablet 60 mg PO DAILY Qty: 15 0RF No Action cholecalciferol (vitamin D3) 2,000 unit capsule 2,000 unit PO QDAY sertraline [Zoloft] 25 mg tablet 25 mg PO QDAY [id number] tablet tablet PO rosuvastatin 5 mg tablet 5 mg PO DAILY Premarin 0.625 mg tablet 0.625 mg PO DAILY azithromycin [Zithromax Z-Brandon] 250 mg tablet See Rx Instructions PO .COMPLEX Qty: 6 0RF Rx Instructions: For 250 mg dose pack: take 500 mg today (day 1), then 250 mg for 4 days (days 2-5) PO multivitamin with iron 1 EACH tablet 1 ea PO DAILY Primary Care Provider: Paige Saldana Referrals: Paige Saldana, SHIPPER/RECEIVER-C [Primary Care Provider] - 3-5 Days Activity Restrictions/Additional Instructions: See Dr. Flood as scheduled in approximately 1 week. Disposition Disposition: Home, Self Care
== END 2022-09-20 16:21 | disposition home or self-care (01) ==
PROVIDERS: Emergency Provider Emergency Medicine; PCP Nurse Practitioner Family; Visit Provider Emergency Medicine
DX: M54.30 Sciatica, unspecified side (principal); M79.605 Pain in left leg; E78.00 Pure hypercholesterolemia, unspecified; Z79.52 Long term (current) use of systemic steroids
CPT/HCPCS: 93971; 99282

== ENCOUNTER → 2022-12-06 | Outpatient (CLI) | payer MEDICARE, SELFPAY ==
--- NOTE | 2022-12-06 14:45 | RAD_ITS ---
INDICATION: LEFT HIP PAIN EXAMINATION/TECHNIQUE: X-RAY - LEFT XR Femur Min 2 Views COMPARISON: None. FINDINGS: 5 views of the left femur. BONES: Normal anatomic alignment without evidence of fracture or subluxation. No concerning bony lesion or abnormal sclerosis to suggest lesion. JOINTS: Mild femoroacetabular joint degenerative change. SOFT TISSUES: Unremarkable. RAD/Femur Min 2 Views IMPRESSION: No acute osseous abnormality of the left femur. Electronically Signed: Leandro Zavala MD at 18:36 EDT ,
== END | disposition home or self-care (01) ==
PROVIDERS: PCP Nurse Practitioner Family; Referring Provider Anesthesiology Pain Medicine; Visit Provider Anesthesiology Pain Medicine
DX: M25.552 Pain in left hip (principal)
CPT/HCPCS: 73552

== ENCOUNTER 2023-01-07 16:22 | Emergency (ER) | payer MEDICARE, SELFPAY ==
[2023-01-07 16:33] VITALS: BP 149/82; PULSE 74; RESP 15; TEMP 36.6; O2SAT 99; BMI 19.0
--- NOTE | 2023-01-07 16:53 | EX.ED.DYSGE1 ---
HPI <MEGAN Parker - Last Filed: 01/07/23 20:43> History of Present Illness Chief Complaint: Abd Pain Narrative Narrative: Patient presenting today with lower abdominal pain that she describes as sharp that started shortly after she tried to have a bowel movement this afternoon. She reports that she had a sudden urge to have a bowel movement but was only able to pass a little stool. She reports, I feel like I need to have a bowel movement. She reports that she does have some nausea without any vomiting. Past abdominal surgery includes appendectomy and hysterectomy. She denies any blood in the stool, fever, chills, and urinary symptoms. PFS <MEGAN Parker - Last Filed: 01/07/23 20:43> [facility] Medical History Abnormal mammogram of left breast Abnormal ultrasound of breast Acute bronchitis Acute pneumonia Breast nodule Bronchitis Celiac disease Contact with or suspected exposure to other viral communicable disease Depression Diarrhea Hypercholesteremia Nocturia more than twice per night GILBERT (obstructive sleep apnea) Sleep apnea Vitamin D deficiency, unspecified Home Medications multivitamin with iron 1 ea PO DAILY 07/31/16 [History Last Taken Unknown] kwxbwrq-bpjifqxbj-zjqj tablet tab PO 09/27/17 [History Last Taken Unknown] cholecalciferol (vitamin D3) 50 mcg (2,000 unit) capsule 2,000 unit PO QDAY 09/27/17 [History Last Taken Unknown] sertraline 25 mg tablet (Zoloft) 25 mg PO QDAY 09/27/17 [History Last Taken Unknown] rosuvastatin 5 mg tablet 5 mg PO DAILY 03/28/19 [History Last Taken Unknown] fexofenadine 60 mg-pseudoephedrine ER 120 mg tablet,ext.release,12 hr (Sarah-D 12 Hour) 1 tab PO Q12H PRN 12/26/22 [History Last Taken Unknown] hydroxyzine HCl 50 mg tablet 100 mg PO QHS 12/26/22 [History Last Taken Unknown] meloxicam 15 mg tablet 15 mg PO DAILY 12/26/22 [History Last Taken Unknown] omeprazole 20 mg capsule,delayed release 20 mg PO DAILY 12/26/22 [History Last Taken Unknown] tramadol 50 mg tablet 25 mg PO Q8H PRN 12/26/22 [History Last Taken Unknown] Allergy/AdvReac Type Severity Reaction Status Date / Time Iodinated Contrast Media Allergy Mild unsure Verified 10/12/22 11:12 Sulfa (Sulfonamide Allergy Unknown can use Verified 10/12/22 11:12 Antibiotics) externally,not internally,unknown reaction when baby codeine Allergy Hives Verified 10/12/22 11:12 gluten Allergy CELIAC'S Verified 10/12/22 11:12 DISEASE Family History Mother Cancer Breast cancer Father Suicide Brother Alcoholic Surgical History H/O bladder repair surgery H/O cataract extraction H/O hernia repair H/O: hysterectomy History of colonoscopy (~2016) S/P spinal surgery Social History Smoking Status: Never smoker alcohol intake: current alcohol intake frequency: holidays/special occasions only substance use type: does not use EXAM <MEGAN Parker - Last Filed: 01/07/23 20:43> Physical Exam Const Vital Signs: 01/07/23 16:33 01/07/23 19:17 01/07/23 19:50 Temperature 98 F Temperature Source Temporal Pulse Rate 74 80 86 Respiratory Rate 15 16 146 H Blood Pressure 149/82 H 150/60 H 149/96 H Blood Pressure Mean 104 90 Pulse Ox 99 96 99 Oxygen Delivery Method Room Air Room Air 01/07/23 20:16 Temperature Temperature Source Pulse Rate 76 Respiratory Rate 15 Blood Pressure 129/87 H Blood Pressure Mean Pulse Ox 95 Oxygen Delivery Method Positive well nourished, well developed and no apparent distress General Appearance ED: well developed HEENT Reports normocephalic and head/scalp atraumatic Mouth ED: Yes moist mucous membranes normal Eyes PERRL and EOMs intact bilaterally Neck full ROM and supple Chest Wall inspection of chest normal Resp normal respiratory effort and clear to auscultation bilaterally Cardio regular rate and regular rhythm GI soft to palpation, non-distended and no masses GI Narrative: Minimal tenderness to the right lower quadrant without any rigidity, guarding, or peritoneal signs. Back/Spine normal ROM and normal to inspection Extremity normal to inspection and full ROM Neuro oriented x3, CN's II-XII intact bilaterally, moves all extremities, no focal motor deficits and no sensory deficits noted Sensorium / Orientation: awake and alert Psych mental status grossly normal and thought process normal Skin no rashes or lesions noted and no wounds <Dr. Jerrod Aguilar MD - Last Filed: 01/07/23 19:44> Physical Exam Const Vital Signs: 01/07/23 16:33 01/07/23 19:17 01/07/23 19:50 Temperature 98 F Temperature Source Temporal Pulse Rate 74 80 86 Respiratory Rate 15 16 146 H Blood Pressure 149/82 H 150/60 H 149/96 H Blood Pressure Mean 104 90 Pulse Ox 99 96 99 Oxygen Delivery Method Room Air Room Air 01/07/23 20:16 Temperature Temperature Source Pulse Rate 76 Respiratory Rate 15 Blood Pressure 129/87 H Blood Pressure Mean Pulse Ox 95 Oxygen Delivery Method MDM <MEGAN Parker - Last Filed: 01/07/23 20:43> [facility] Narrative Medical decision making narrative: Patient presenting due to abdominal pain that started this afternoon when she was trying to have a bowel movement and was localized to her lower abdomen. She reports that she feels like she needs to have a bowel movement but cannot. She does have a history of constipation and does take tramadol daily due to left hip pain. She does take MiraLAX daily. She does not have a fecal impaction on rectal examination. She has mild lower abdominal tenderness mainly on the right side. She reports that her abdominal pain has already subsided since being here. However, labs obtained to rule out leukocytosis, anemia, electrolyte abnormality, ARCADIO, UTI, and hepatobiliary etiology. She was given IV fluids. Her abdomen was unremarkable on exam, I do not feel that any imaging is indicated at this time. We will try a soapsuds enema. After the enema patient did have a very large bowel movement and reports complete resolution of her symptoms. On repeat exam, her abdomen is soft and nontender and she reports that she would like to go home. UA is a contaminated specimen and patient is not having any urinary symptoms to suggest UTI. She will be discharged home in stable condition and is comfortable with plan. Lab Data Lab results narrative: Sodium 130, BUN 19 Labs: Laboratory Results - last 24 hr 01/07/23 01/07/23 17:33 18:15 WBC 8.7 RBC 3.88 L Hgb 12.3 Hct 37.1 MCV 95.6 MCH 31.7 MCHC 33.2 RDW Std Deviation 50.7 H RDW Coeff of Clarisse 14.6 Plt Count 271 MPV 9.1 Immature Gran % (Auto) 0.300 Neut % (Auto) 74.9 H Lymph % (Auto) 16.3 L [place] % (Auto) 7.9 Eos % (Auto) 0.3 Baso % (Auto) 0.3 Absolute Neuts (auto) 6.5 Absolute Lymphs (auto) 1.42 Nucleated RBC % 0 Sodium 131 L Potassium 4.0 Chloride 99 Carbon Dioxide 27.0 Anion Gap 5 BUN 19 H Creatinine 0.81 Estim Creat Clear Calc 50.50 Est GFR (MDRD) Af Amer 89 Est GFR (MDRD) Non-Af 73 BUN/Creatinine Ratio 23.6 H Glucose 99 Calcium 8.7 Total Bilirubin 0.60 AST 18 ALT 23 Alkaline Phosphatase 110 Total Protein 6.9 Albumin 3.9 Globulin 3.0 Albumin/Globulin Ratio 1.3 Lipase 25 Urine Color Yellow Urine Clarity Clear Urine pH 7.0 Ur Specific [place] 1.015 Urine Protein Negative Urine Glucose (UA) Normal Urine Ketones Negative Urine Occult Blood Negative Urine Nitrite Negative Urine Bilirubin Negative Urine Urobilinogen Normal Ur Leukocyte Esterase 500 H Urine RBC 0 SEEN Urine WBC 10-25 SEEN Ur Squamous Epith Cells 0-5 SEEN Urine Bacteria 1+ Urine Mucus 0 SEEN <Dr. Jerrod Aguilar MD - Last Filed: 01/07/23 19:44> [facility] Lab Data Attestation: I reviewed the patient's lab results. Labs: Laboratory Results - last 24 hr 01/07/23 01/07/23 17:33 18:15 WBC 8.7 RBC 3.88 L Hgb 12.3 Hct 37.1 MCV 95.6 MCH 31.7 MCHC 33.2 RDW Std Deviation 50.7 H RDW Coeff of Clarisse 14.6 Plt Count 271 MPV 9.1 Immature Gran % (Auto) 0.300 Neut % (Auto) 74.9 H Lymph % (Auto) 16.3 L [place] % (Auto) 7.9 Eos % (Auto) 0.3 Baso % (Auto) 0.3 Absolute Neuts (auto) 6.5 Absolute Lymphs (auto) 1.42 Nucleated RBC % 0 Sodium 131 L Potassium 4.0 Chloride 99 Carbon Dioxide 27.0 Anion Gap 5 BUN 19 H Creatinine 0.81 Estim Creat Clear Calc 50.50 Est GFR (MDRD) Af Amer 89 Est GFR (MDRD) Non-Af 73 BUN/Creatinine Ratio 23.6 H Glucose 99 Calcium 8.7 Total Bilirubin 0.60 AST 18 ALT 23 Alkaline Phosphatase 110 Total Protein 6.9 Albumin 3.9 Globulin 3.0 Albumin/Globulin Ratio 1.3 Lipase 25 Urine Color Yellow Urine Clarity Clear Urine pH 7.0 Ur Specific [place] 1.015 Urine Protein Negative Urine Glucose (UA) Normal Urine Ketones Negative Urine Occult Blood Negative Urine Nitrite Negative Urine Bilirubin Negative Urine Urobilinogen Normal Ur Leukocyte Esterase 500 H Urine RBC 0 SEEN Urine WBC 10-25 SEEN Ur Squamous Epith Cells 0-5 SEEN Urine Bacteria 1+ Urine Mucus 0 SEEN Treatment and Re-Evaluation Comments:: I have personally performed a face to face assessment of the patient and have reviewed the AB Note. I performed a substantive portion of the visit including all aspects of the following. My mendenhall findings include: History is pain in her lower abdomen that started quickly after needing to have a bowel movement and basically unable to go. She takes MiraLAX every day which keeps her stools soft for the most part. She denies any prior blood per rectum or melena. No nausea or vomiting. Exam is benign exam, soft abdomen no significant tenderness in her lower abdomen. On rectal exam, no palpable obstipation soft brown nonbloody stool and no palpable abscess or areas of tenderness. Medical Decison Making Labs obtained and soapsuds enema. Labs are benign, soapsuds enema resulted in a large bowel movement she felt much better, therefore we do not think patient needs to be imaged with CT at this time. Patient is amenable to close a patient follow-up and discharged home. Other additions or changes: [None] Discharge Plan Triage Chief Complaint: Abd Pain ED Midlevel Provider: Reema Ochoa ED Provider: Jerrod Aguilar Dx/Rx/DC Orders Clinical Impression: Acute constipation, Abdominal pain, lower Instructions: ED Constipation (Adult) Prescriptions: No Action cholecalciferol (vitamin D3) 2,000 unit capsule 2,000 unit PO QDAY sertraline [Zoloft] 25 mg tablet 25 mg PO QDAY zpbgdlr-jpntqjnrg-ibgb tablet tablet PO rosuvastatin 5 mg tablet 5 mg PO DAILY omeprazole 20 mg capsule,delayed release(DR/EC) 20 mg PO DAILY hydroxyzine HCl 50 mg tablet 100 mg PO QHS meloxicam 15 mg tablet 15 mg PO DAILY tramadol 50 mg tablet 25 mg PO Q8H PRN fexofenadine-pseudoephedrine [Sarah-D 12 Hour] 60-120 mg tablet extended release 12 hr 1 tab PO Q12H PRN multivitamin with iron 1 EACH tablet 1 ea PO DAILY Primary Care Provider: Paige Saldana Referrals: Paige Saldana, CSR TECHNICIAN-C [Primary Care Provider] - 3-5 Days if not improving Disposition Disposition: Home, Self Care Discharge Date/Time: 01/07/23 20:17
[2023-01-07 17:39] LABS: Absolute Lymphocyte Count 1.42 X10^3/uL (0.83-4.51); Absolute Neutrophil Count 6.5 X10^3/uL (2.0-7.7); Basophil# 0.03 X10^3/uL; Basophil% 0.3 % (0-1); Eosinophil# 0.03 X10^3/uL; Eosinophils% 0.3 % (0-5); Hematocrit 37.1 % (37-47); Hemoglobin 12.3 g/dL (12.0-15.0); Lymphocyte # 1.42 X10^3/ul (0.83-4.51); Lymphocyte % 16.3 % (19-41); Mean Corp Hgb Conc 33.2 g/dL (32-36); Mean Corpuscular Hgb 31.7 pg (27.0-32.0); Mean Corpuscular Volume 95.6 fL (81-99); Mean Platelet Vol. 9.1 fl (6.2-12.0); Monocyte# 0.69 X10^3/uL; Monocyte% 7.9 % (0-10); NRBC Flagged by Analyzer 0 % (0-5); Neutrophil # 6.51 X10^3/uL (2.7-7.7); Neutrophil % 74.9 % (47-70); Platelet Count 271 K/mm3 (150-450); RBC Distribution Width CV 14.6 % (11.6-14.6); RBC Distribution Width SD 50.7 fl (35.1-43.9); Red Blood Count 3.88 M/mm3 (4.2-5.4); White Blood Count 8.7 K/mm3 (4.4-11.0)
[2023-01-07 17:58] LABS: ALB/GLOB Ratio 1.3 RATIO (0.9-2.4); AST(SGOT) 18 U/L (15-37); Alanine Aminotransfer ALT/SGPT 23 U/L (13-56); Albumin, Serum 3.9 g/dL (3.2-5.0); Alkaline Phosphatase 110 U/L (45-117); Anion Gap 5 (5-15); BUN 19 mg/dL (7-18); BUN/Creat Ratio 23.6 RATIO (10-20); Calcium,Total 8.7 mg/dL (8.5-10.1); Chloride 99 mmol/L (98-107); Creatinine, Serum 0.81 mg/dL (0.55-1.02); EST Glomerular Filtration Rate 73 mL/min (>60); Est Glom Filt Rate - Afr Amer 89 mL/min (>60); Glucose 99 mg/dL (74-106); Lipase 25 U/L (13-75); Protein, Total 6.9 g/dL (6.4-8.2); Sodium Level 131 mmol/L (136-145)
[2023-01-07 18:21] LABS: Mucous, Urine 0 SEEN /hpf (<or=2+); Red Blood Cells-Urine 0 SEEN /hpf (0-5)
[2023-01-07 18:31] LABS: Color, Urine Yellow (Yellow); Glucose, Dipstick Normal (Normal); Ketone-Dipstick Negative (Negative); Leukocyte Esterase-Dipstick 500 /ul (Negative); Nitrite-Dipstick Negative (Negative); Occult Blood-Urine Negative /ul (Negative); Protein-Dipstick Negative (Negative); Specific Gravity, Urine 1.015 (1.002-1.030); Urine Bilirubin Dipstick Negative (Negative); Urine Clarity Clear (Clear); Urine Urobilinogen Normal (Normal)
[2023-01-07 19:09] LABS: Bacteria 1+ /hpf (None Seen); Squamous Epithelial Cells - UA 0-5 SEEN /hpf (5-10); White Blood Cells 10-25 SEEN /hpf (0-5)
[2023-01-07] MEDS: 0.9% Normal Saline (1000mL) 1,000 ML 999 ML IV (19:16)
[2023-01-07 19:17] VITALS: BP 150/60; PULSE 80; RESP 16; O2SAT 96
[2023-01-07 19:50] VITALS: BP 149/96; PULSE 86; RESP 146; O2SAT 99
[2023-01-07 20:16] VITALS: BP 129/87; PULSE 76; RESP 15; O2SAT 95
== END 2023-01-07 20:17 | disposition home or self-care (01) ==
PROVIDERS: Physician Assistant; Emergency Provider Emergency Medicine; PCP Nurse Practitioner Family; Visit Provider Emergency Medicine
DX: K59.00 Constipation, unspecified (principal); E78.00 Pure hypercholesterolemia, unspecified; Z90.49 Acquired absence of other specified parts of digestive tract
CPT/HCPCS: 96374; 80053; 81001; 83690; 85025; 96360; 99285; J7030; A4216; J2405

== ENCOUNTER → 2023-01-18 | Outpatient (CLI) | payer MEDICARE, SELFPAY ==
--- NOTE | 2023-01-18 10:00 | MRI_ITS ---
INDICATION: radicular pain -- metal subtraction EXAMINATION: MRI - MR Spine Lumbar W/O Contrast TECHNIQUE: Multiplanar and multisequence MR images of the lumbar spine. IV Contrast Dosage and Agent: None. COMPARISON: FINDINGS: VERTEBRAE: Plate-screw fixation and disc space insert is identified at L4 and L5. Normal vertebral bodies and posterior elements. VERTEBRAL ALIGNMENT: No spondylolisthesis. There is preservation of the normal lumbar lordosis. CORD: Normal position and signal intensity of the conus medullaris. L1/L2: Normal disc height and morphology. Normal spinal canal, lateral recesses and neuroforamina. L2/L3: Normal disc height and morphology. Normal spinal canal, lateral recesses and neuroforamina. L3/L4: There is disc bulging without significant foraminal or spinal canal stenosis. L4/L5: There is minimal grade 1 anterolisthesis. Post surgical changes are noted at this level as described above. L5/S1: There is a small central disc herniation. There is mild right foraminal stenosis. There is mild impingement of the descending S1 nerve roots bilaterally. SOFT TISSUES: Unremarkable. MRI/Spine Lumbar (Routine) IMPRESSION: Postsurgical changes as described. Small disc herniation at L5/S1 with mild right foraminal stenosis and possible mild impingement of the bilateral descending S1 nerve roots. Electronically Signed: Ab Ramon MD at 12:05 EDT ,
== END | disposition home or self-care (01) ==
PROVIDERS: PCP Nurse Practitioner Family; Referring Provider Orthopaedic Surgery; Visit Provider Orthopaedic Surgery
DX: M54.10 Radiculopathy, site unspecified (principal)
CPT/HCPCS: 72148

== ENCOUNTER 2023-02-01 12:19 | Outpatient (RCR) | payer MEDICARE, SELFPAY | END 2023-02-01 19:00 | disposition home or self-care (01) | LOC: PT 12:19 | PROVIDERS: PCP Nurse Practitioner Family; Referring Provider Orthopaedic Surgery; Visit Provider Orthopaedic Surgery | DX: M16.12 Unilateral primary osteoarthritis, left hip (principal); M54.16 Radiculopathy, lumbar region ==

== ENCOUNTER → 2023-02-28 | Outpatient (CLI) | payer MEDICARE, SELFPAY ==
[2023-02-28 09:49] LABS: Bacteria 0 SEEN /hpf (None Seen); Mucous, Urine 0 SEEN /hpf (<or=2+); Red Blood Cells-Urine 0 SEEN /hpf (0-5); Squamous Epithelial Cells - UA 0 SEEN /hpf (5-10)
[2023-02-28 12:24] LABS: Color, Urine Yellow (Yellow); Glucose, Dipstick Normal (Normal); Ketone-Dipstick Negative (Negative); Leukocyte Esterase-Dipstick 100 /ul (Negative); Nitrite-Dipstick Negative (Negative); Occult Blood-Urine Negative /ul (Negative); Protein-Dipstick Negative (Negative); Urine Bilirubin Dipstick Negative (Negative); Urine Clarity Clear (Clear); Urine Urobilinogen Normal (Normal); Urine pH 6.5 (5.0 - 8.0)
[2023-02-28 12:30] LABS: White Blood Cells 0-5 SEEN /hpf (0-5)
[2023-02-28 13:23] LABS: Potassium 4.9 mmol/L (3.5-5.1)
== END | disposition home or self-care (01) ==
LOC: MTLAB 09:33
PROVIDERS: PCP Internal Medicine; Referring Provider Nurse Practitioner Family; Visit Provider Nurse Practitioner Family
DX: Z01.818 Encounter for other preprocedural examination (principal); E87.5 Hyperkalemia
CPT/HCPCS: 36415; 81001; 84132

== ENCOUNTER → 2023-03-07 | Outpatient (CLI) | payer MEDICARE, SELFPAY ==
--- NOTE | 2023-03-07 14:05 | CT_ITS ---
EXAM: CT LEFT LOWER EXTREMITY WITHOUT INTRAVENOUS CONTRAST, HIP CLINICAL INDICATION: templating for left ADRIAN TECHNIQUE: Helically acquired images were obtained of the left hip without intravenous contrast. CTDIvol = ( 13.77 ) mGy, DLP = ( 944.17 ) mGycm This CT exam was performed using one or more of the following dose reduction techniques: automated exposure control, adjustment of the mA and/or kV according to patient size, and/or use of iterative reconstruction technique. COMPARISON: December 26, 2022 exam FINDINGS: BONES/JOINTS: Moderate hip osteoarthrosis with moderate severe left hip osteoarthrosis. Incompletely imaged lumbosacral fusion interbody spacer at L4-5. Mild to moderate space narrowing involving the bilateral femorotibial compartments. No acute or healing fracture or malalignment. No other unusual lytic or sclerotic lesions of bone. SOFT TISSUES: Unremarkable. No soft tissue swelling or gas. No radiopaque foreign body. No soft tissue masses or fluid collections. CT/Extremity Lower without Contra IMPRESSION: Preoperative planning study showing moderate to severe left hip osteoarthrosis. Electronically Signed: Jonah Dotson MD at 22:49 EST ,
== END | disposition home or self-care (01) ==
PROVIDERS: PCP Nurse Practitioner Family; Referring Provider Orthopaedic Surgery; Visit Provider Orthopaedic Surgery
DX: M16.12 Unilateral primary osteoarthritis, left hip (principal)
CPT/HCPCS: 73700

== ENCOUNTER 2023-03-14 08:13 | Inpatient (IN) | payer MEDICARE, SELFPAY ==
[2023-03-07 14:35] LABS: Prothrombin Time (Protime)PT. 13.4 SECONDS (11.7-14.9)
[2023-03-07 14:36] LABS: Partial Thromboplast Time 28.4 Seconds (24.1-36.2)
[2023-03-07 14:43] LABS: Magnesium 2.3 mg/dL (1.6-2.6)
[2023-03-07 14:58] LABS: Hemoglobin A1c 5.3 % (3.8-5.6)
[2023-03-09 09:08] LABS: Fructosamine 247 umol/L (0-285)
[2023-03-14] VITALS (12 sets, daily range): BP systolic 110–156; BP diastolic 52–85; PULSE 66–83; RESP 12–18; TEMP 35.9–36.9; O2SAT 95–100; BMI 29.8; BMI 31.3
[2023-03-14] MEDS: Lactated Ringers 1,000 ML 999 ML IV (08:50)
[2023-03-14] MEDS: Magnesium 1 GM over 15 mins IV (09:00)
[2023-03-14] MEDS: Celecoxib 200 MG Capsule 400 MG PO (09:18)
[2023-03-14] MEDS: Scopolamine 1mg/72hr Patch 1 PATCH TD (09:18)
[2023-03-14] MEDS: Gabapentin 600 MG Tablet PO (09:18)
[2023-03-14] MEDS: Acetaminophen 500 MG Tablet 1000 MG PO ×2 (09:18→21:11)
--- NOTE | 2023-03-14 09:57 | HP.PCM_ITS ---
History and Physical Date of Admission: 03/14/23 [facility] [address] [place] [address] OFFICE VISIT Date of Service: 01/27/23 MR#: [id number] Acct: [id number] Name: IHSAN WOODARD Rep #: [id number] : 1945 Provider: Dr. Michael Martin DO Age/Sex: 77/F Location: [facility] Status: Signed with Addenda ADDENDUM by Dr. Michael Martin DO on 01/27/23 at 1021 Assessment and Plan Assessment and Plan (1) Degenerative joint disease of left hip: Status: Acute Qualifiers: Osteoarthritis type: primary Qualified Code(s): M16.12 - Unilateral primary osteoarthritis, left hip (2) Lumbar back pain with radiculopathy affecting left lower extremity: Status: Acute Orders: Referrals Physical Therapy Referral M16.12 - Unilateral primary osteoarthritis, left hip, M54.16 - Radiculopathy, lumbar region Plan Patient had a walker that was not the appropriate size for her we did dispense a walker to her today that was more appropriate. 01/27/23 1021 <Electronically signed by Michael Martin DO> Date Michael Martin DO cc: ~* Signed Intake Vital Signs 01/08/2316:33 01/23/2311:15 Height 5 ft 7 in 5 ft 7 in Intake Visit Reasons: LEFT HIP Chief Complaint: left hip Accompanied by: Is patient in pain?: Yes Allergies Iodinated Contrast Media Allergy (Mild, Verified 01/27/23 09:10) unsureSulfa (Sulfonamide Antibiotics) Allergy (Unknown, Verified 01/27/23 09:10) can use externally,not internally,unknown reaction when babycodeine Allergy (Verified 01/27/23 09:10) Hivesgluten Allergy (Verified 01/27/23 09:10) CELIAC'S DISEASE Medications multivitamin with iron 1 ea PO DAILY 07/31/16 [History Confirmed 01/27/23] hbppvjd-oncrexgjk-auwh tablet tab PO 09/27/17 [History Confirmed 01/27/23] cholecalciferol (vitamin D3) 50 mcg (2,000 unit) capsule 2,000 unit PO QDAY 09/27/17 [History Confirmed 01/27/23] sertraline 25 mg tablet (Zoloft) 25 mg PO QDAY 09/27/17 [History Confirmed 01/27/23] rosuvastatin 5 mg tablet 5 mg PO DAILY 03/28/19 [History Confirmed 01/27/23] fexofenadine 60 mg-pseudoephedrine ER 120 mg tablet,ext.release,12 hr (Sarah-D 12 Hour) 1 tab PO Q12H PRN 12/26/22 [History Confirmed 01/27/23] hydroxyzine HCl 50 mg tablet 100 mg PO QHS 12/26/22 [History Confirmed 01/27/23] meloxicam 15 mg tablet 15 mg PO DAILY 12/26/22 [History Confirmed 01/27/23] omeprazole 20 mg capsule,delayed release 20 mg PO DAILY 12/26/22 [History Confirmed 01/27/23] tramadol 50 mg tablet 25 mg PO Q8H PRN 12/26/22 [History Confirmed 01/27/23] duloxetine 20 mg capsule,delayed release 20 mg PO BID 01/27/23 [History Confirme d 01/27/23] PFSH Medical History Abnormal mammogram of left breast Abnormal ultrasound of breast Acute bronchitis Acute pneumonia Breast nodule Bronchitis Celiac disease Contact with or suspected exposure to other viral communicable disease Depression Diarrhea Hypercholesteremia Nocturia more than twice per night GILBERT (obstructive sleep apnea) Sleep apnea Vitamin D deficiency, unspecified Surgical History H/O bladder repair surgery H/O cataract extraction H/O hernia repair H/O: hysterectomy History of colonoscopy (~2016) S/P spinal surgery Family History Mother Cancer Breast cancerFather SuicideBrother Alcoholic Social History Smoking Status: Never smoker alcohol intake: current alcohol intake frequency: holidays/special occasions only substance use type: does not use HPI LEFT HIP Details: Parts of this documentation were recorded by a scribe, this documentation accurately reflects the service provided and the decisions made by me, Dr. Michael Martin, DO 01/27/23 0754. IHSAN WOODARD is a 77 year old F here today for MRI review of the lumbar spine. States that when she is sitting her left hip pain is a 2/10 but when she gets up it increases even when she is taking pain [id number]. She is taking Cymbalta and Tramadol. She feels that most of her pain is over the left groin and left medial thigh which has now caused her to start using a walker. She did have a left intra-articular hip injection in 11/2022. She did trial PT but was unable to complete PT d/t significant amount of pain. Ortho Exam General General: Yes no acute distress Neurologic: Yes alert, No oriented x3, No confused and No lethargic Psychologic: Yes reasonable and appropriate Left Hip Skin/Wound: No Ecchymosis, No soft tissue swelling and No Erythema Hip: Present tender to palpate -; Absent eccymosis, soft tissue swelling or erythema Special Tests: Yes TTP Greater Troch, TTP Greater sciatic notch and Illiotibial band tenderness Homans Sign: No HIP: significant pain with internal rotation 8 with reproduction of groin/medial thigh pain 10 external rotation with pain in the groin/medial thigh no s/sx of infection no skin changes No gross motor or sensory deficits left lower extremity Head: Normocephalic Atraumatic Chest: symmetrical rise, non-labored breathing, no audible wheeze Abdomen: no guarding, non-rigid Supplemental Info 01/18/2023 MRI lumbar spine: L5/S1: Plate-screw fixation and disc space insert is identified at L4 and L5. There is a small central disc herniation. There is mild right foraminal stenosis. There is mild impingement of the descending S1 nerve roots bilaterally. 12/26/2022 x-ray lumbar spine: Posterior instrumentation and fusion of L4-L5 12/26/2022 x-ray left hip: There is moderate joint space narrowing Coding Level of Care Code Off vis,est,level 4 Diagnoses Primary osteoarthritis of left hip M16.12 Osteoarthritis type: primary Lumbar back pain with radiculopathy affecting left lower extremity M54.16 Assessment and Plan Assessment and Plan (1) Degenerative joint disease of left hip: Status: Acute Qualifiers: Osteoarthritis type: primary Qualified Code(s): M16.12 - Unilateral primary osteoarthritis, left hip (2) Lumbar back pain with radiculopathy affecting left lower extremity: Status: Acute Orders: Referrals Physical Therapy Referral M16.12 - Unilateral primary osteoarthritis, left hip, M54.16 - Radiculopathy, lumbar region Plan Educated that she does have some nerve impingement at the L5-S1 nerve root bilaterally which would be the cause of the low back pain. Patient educated that the treatment recommendation for this would be to see pain management for back injections. Patient reports that most of her pain is over the left groin and medial thigh which is common with left hip OA. Educated that she does have OA of the left hip as well. Treatment options for OA of the hip is PT or intra- articular hip injection or ADRIAN. Risks, benefits and alternatives of surgery reviewed including but not limited to bleeding, infection, nerve, foot drop, artery and/or tissue damage, fracture, VTE, leg length discrepancy, dislocation, need for hip precautions, continued pain and expected post-operative course. Patient is aware that she may have continued pain in the left leg from her lumbar spine after a ADRIAN. She does have weakness with standing therefore would recommend preop PT for strengthening of the left hip. Instructed to not take NSAIDs 7 days prior to surgery. Educated that she should trial to discontinue /limit her Tramadol use or stop this all together so she has better relief from pain post op. She can take Tylenol for her pain. Patient needs to have this procedure as an admission procedure. She is unstable on her feet already using a walker she is not narcotic na?ve as has been on tramadol and will possibly need rehab postoperatively. She is of advanced age. Will need medical clearance and can not have surgery until after 03/02/2023. Will need CT scan for MAKOplasty Tentative surgery date March 14, 2023 admission Follow up 2 weeks post op or sooner if pain, swelling, numbness or associated symptoms, or concerns develop. All questions answered. Patient in agreement of plan. I have examined the patient and the H&P has been reviewed. There are no clinical changes since date of exam. 01/27/23 1004 <Electronically signed by Michael Borruso DO> Date Michael Borruso DO Cosigner Signature: Date
[2023-03-14] MEDS: Lactated Ringers 1,000 ML 100 ML IV (10:05)
--- NOTE | 2023-03-14 11:05 | BON_PTH ---
PATIENT: IHSAN WOODARD LOC: [facility] U#:[id number] AGE/SX: 77/F ROOM: OR311 RE03/14/[address]: Dr. Gonzalez Abdi MD : 1945 BED: 1 DIS: 03/17/2023 SPEC #: [id number] RECD: 03/15/23 07:57 STATUS: VASQUEZ RAÚL #: [id number] NOMAN: 03/14/23 11:[address]: Michael Martin DEPT: SURGICAL PATHOLOGY RECD BY: Maribeth Germain ENTERED: 03/15/23 07:58 SP TYPE: Bone OTHR DR: Paige Saldana, IRON INSTALLER-C Tissues: Hip, NOS Procedures: Decalcification bone/plaque Surgery Specimen Level IV HEADER OPERATION: ERAS, left total hip replacement robotic arm assisted PRE-OP DIAGNOSIS: Degenerative joint disease of left hip, lumbar back pain with radiculopathy affecting left lower extremity TISSUE SUBMITTED: Left hip bone and tissue MICROSCOPIC DIAGNOSIS Bone and tissue of left hip, total hip resection: Degenerative joint disease. Mild synovial hyperplasia. AM:bennie 03/20/2023 MICROSCOPIC DESCRIPTION Slides are reviewed. GROSS DESCRIPTION Received is one container labeled with the patient's name and designated bone and soft tissue left hip. The specimen consists of a christie femoral head measuring 6.5 x 5.0 x 5.0 cm. The articular surface displays prominent osteophyte formation, eburnation and bone erosion. Also present in the specimen container are multiple irregular fragments of bone reamings and pink-yellow soft tissue measuring in aggregate 7.0 x 5.0 x 2.0 cm. Admissions Assistant sections are submitted in two cassettes as follows: 1 - soft tissue and bone reamings, 2 - bone after decalcification. / AM:bennie 03/15/2023 TC:5 CPT: 86366, 62043
[2023-03-14] MEDS: Cefazolin 2 GM in 0.9% Normal Saline (100mL Bag) 100 ML IV ×2 (11:31→19:36)
[2023-03-14] MEDS: dexAMETHasone 10 MG/ML Vial IV (11:37)
[2023-03-14] MEDS: TRANEXAMIC ACID 2,000 MG in 0.9% Normal Saline (100mL Bag) 100 ML 660 MG IV (11:47)
--- NOTE | 2023-03-14 14:00 | PCM.OP.BLANK ---
Operative Report Date of Procedure: 03/14/23 Preoperative diagnosis: Left hip DJD Postoperative diagnosis: Same Procedure: CT-guided Makoplasty assisted left total hip arthroplasty Implants: [place] Accolade II stem size 7, 127 degree neck angle 2.5 neck length 52 mm Trident II acetabular shell with 40 mm cancellous screw, and 20 mm cancellous screw 36 mm ceramic head, 10 degree Trident X3 polyethylene insert. Anesthesia: Spinal EBL: 175 cc Complications: None Condition: Stable to PACU Gauge And Weigh Machine Operator Steven Collazo. My physician internet marketing assistant was a vital part of this case. He was important in appropriate retraction during the case, and protection of soft tissues during procedure. His intimate knowledge of the case and my steps aided in safe and expedient completion of the procedure as well as appropriate position of the extremity during the case. He was also vital in assisting with closure under my direct supervision. Indication for procedure: This is a 77-year-old female who has had long-standing arthrosis of the hip who has failed conservative treatment and wished to undergo total hip arthroplasty. We did discuss operative versus nonoperative intervention including risks of bleeding, infection , nerve artery tissue damage, need for further surgery, fracture, leg length discrepancy dislocation blood clot and need for postoperative physical therapy and postoperative expectations. An informed consent was signed. Procedure: Patient was met in the preoperative holding area once again the operative extremity was identified by both patient and physician and was marked. Patient was met by anesthesia . Anesthesia was started. patient was then positioned in the lateral decubitus position on a well-padded pegboard with an axillary roll. All bony prominences were checked and padded. The patient was prepped and draped in the usual sterile fashion. A timeout was called to ensure the proper patient procedure and extremity were being contemplated. Anatomic landmarks were palpated and marked for a standard posterior lateral approach. Prior to this the ASIS was palpated and 3 fingerbreadths proximal to this 3 pins were placed at a 45 degree angle into the iliac crest with good purchase, stab incisions were made with a 15 blade into the skin prior to placement. The Makoplasty array was then secured. A 10 blade scalpel was used to make a posterior incision through the skin and subcutaneous tissue. retractors were used and electrocautery was used to maintain meticulous hemostasis and dissect full-thickness flaps until the gluteal fascia was reached. The gluteal fascia was incised in line with the gluteal fibers. The bursal tissue was then freed from the underside and a Charnley retractor was placed. The femoral trochanteric checkpoint was placed and leg length was assessed using the trochanteric checkpoint and an EKG lead that was placed on the knee prior to prepping the leg .the fat pad was then elevated off of the external rotators with electrocautery and the external rotators were dissected off of the greater trochanter including the piriformis and were tagged with #1 Ethibond for later repair. The joint capsule opened with posterior trapdoor technique. The hip was surgically dislocated. The measurement on the preoperative CT from the top of the lesser trochanter to the femoral neck cut was marked Hohmann was placed around the lesser trochanter. A neck cutting guide was used to korina the neck with a Bovie and an oscillating saw was used complete the femoral neck cut. The femoral head was then removed and sized. We then turned our attention to the acetabulum. A Bovie was used to make a perforation in the anterior joint capsule and a Rawls retractor was placed this was repeated in the 6 o'clock position and a wide salvador was placed there. With a long handled knife the labral and pulvinar tissue were removed. We then registered the acetabulum with the pointing array and confirmed our landmarks. Once the socket was thoroughly prepared and labral tissue and pulvinar was removed we single reamed with the robotic arm. We then used the robotic arm to position the acetabular implant and impacted it into place under robotic guidance. We then proceeded to place a posterior superior screw by drilling first measuring and inserting the screw, there was not excellent purchase with for screw so a second screw was placed. We then inserted a trial liner. And turned our attention back to the femur at this point a femoral elevator was used. As well as a pointed wide Hohmann around the lesser trochanter and a Hohmann to help retract the gluteus medius. A box chisel was used to remove excess lateral neck followed by a canal finder and a lateralizing reamer. This was followed by sequential broaches. Attention was made of the version within the canal based on preoperative templating. Once the final broach was seated we then trialed reduced the hip it was determined that a 127 degree neck angle with a +2.5 neck length was the appropriate size. We then checked stability with shuck testing as well as flexion and internal rotation. then proceeded with hip extension and checked leg lengths at the knees and heels as well as with the trochanteric checkpoint and knee EKG lead. At this point trials were removed. A liner was inserted to the cup. The femoral stem was inserted. We re-trialed and then proceeded to impact the femoral head onto the Hernán taper. We then surgically reduce the hip check stability again and leg lengths and were satisfied. Betadine rinse was allowed to sit for 5 minutes while everyone changed their gloves. Thorough irrigation was performed. Followed by closure of the external rotators with #2 FiberWire followed by closure of gluteal fascia with #1 Ethibond. 0 Vicryl fat stitches and 2-0 Vicryl subcutaneous stitches and donny in the skin. [place] were placed in the skin pin sites over the iliac crest and dressed with a Mepilex dressing. The main incision was dressed with a Mepilex ag dressing and an abduction pillow was placed. Patient tolerated the procedure well there was no intraoperative complications all counts were correct and the patient was brought back to the PACU in stable condition
--- NOTE | 2023-03-14 14:15 | RAD_ITS ---
STUDY: X-RAY - PELVIS AND LEFT HIP REASON FOR EXAM: Female, 77 years old. Postoperative evaluation after left total hip arthroplasty. TECHNIQUE: 2 views of the pelvis and hip. COMPARISON: December 26, 2022. FINDINGS: Osteopenia with mild osteoarthritic changes of the symphysis pubis, both sacroiliac joints and right hip, unchanged. New left total hip arthroplasty with expected soft tissue swelling and soft tissue gas. No complications. RAD/Hip Min 2 Views (Portable) IMPRESSION: Uncomplicated left total hip arthroplasty. Electronically Signed: Donis Lagos MD at 15:15 EST ,
[2023-03-14] MEDS: Lactated Ringers 1,000 ML 125 ML IV (14:53)
[2023-03-14] MEDS: Ketorolac 15 MG/ML Vial IV (16:18)
[2023-03-14] MEDS: oxyCODONE 5 MG Tablet PO (16:18)
[2023-03-14] MEDS: 0.9% Normal Saline (1000mL) 1,000 ML 125 ML IV (19:11)
[2023-03-14] MEDS: Senna/Docusate Sodium 1 Tablet 2 TABLET PO (21:11)
[2023-03-14] MEDS: Atorvastatin Calcium 10 MG Tablet PO (21:11)
[2023-03-15] VITALS (11 sets, daily range): BP systolic 100–126; BP diastolic 51–98; PULSE 73–104; RESP 16–18; TEMP 36.6–37.4; O2SAT 96–100
[2023-03-15] MEDS: Ketorolac 15 MG/ML Vial IV (01:27)
[2023-03-15] MEDS: Cefazolin 2 GM in 0.9% Normal Saline (100mL Bag) 100 ML IV ×2 (03:00→11:27)
[2023-03-15] MEDS: 0.9% Normal Saline (1000mL) 1,000 ML 125 ML IV ×3 (03:01→16:48)
[2023-03-15] MEDS: Acetaminophen 500 MG Tablet 1000 MG PO ×3 (06:25→19:59)
[2023-03-15] MEDS: APIXABAN 2.5 MG TABLET (WCH) PO ×2 (06:25→19:59)
[2023-03-15 08:43] LABS: Hematocrit 31.2 % (37-47); Hemoglobin 9.9 g/dL (12.0-15.0); Mean Corp Hgb Conc 31.7 g/dL (32-36); Mean Corpuscular Hgb 31.6 pg (27.0-32.0); Mean Corpuscular Volume 99.7 fL (81-99); Mean Platelet Vol. 10.3 fl (6.2-12.0); Platelet Count 263 K/mm3 (150-450); RBC Distribution Width CV 13.1 % (11.6-14.6); RBC Distribution Width SD 47.4 fl (35.1-43.9); Red Blood Count 3.13 M/mm3 (4.2-5.4); White Blood Count 12.6 K/mm3 (4.4-11.0)
[2023-03-15 09:04] LABS: Anion Gap 4 (5-15); BUN 13 mg/dL (7-18); BUN/Creat Ratio 16.3 RATIO (10-20); Calcium,Total 8.3 mg/dL (8.5-10.1); Chloride 102 mmol/L (98-107); EST Glomerular Filtration Rate 74 mL/min (>60); Est Glom Filt Rate - Afr Amer 90 mL/min (>60); Estimated Creatinine Clearance 57.27 ml/min; Glucose 132 mg/dL (74-106); Potassium 4.6 mmol/L (3.5-5.1); Sodium Level 131 mmol/L (136-145)
--- NOTE | 2023-03-15 09:10 | NURSING ---
PT/OT was working with pot had her sitting at bedside and she started to get pale and felt like she was going to pass out. They layed her down in bed and she felt better. This RN was called to room and got a set of v/s which were stable. Pt felt better so PT/OT gor her up and walked her to chair where once she was down she turned pale and passed out. The chair was elevated back and staff assist was called. Pt v/s were taken and BS was 123. She came to and was given a cool rag for her face and ordered breakfast. Pt states she is feeling better.
[2023-03-15] MEDS: Pantoprazole Sodium 20 MG Tablet PO (09:17)
[2023-03-15] MEDS: Senna/Docusate Sodium 1 Tablet 2 TABLET PO ×2 (09:17→19:59)
[2023-03-15] MEDS: Sertraline 50 MG Tablet 25 MG PO (09:17)
[2023-03-15 09:38] LABS: Bedside Glucose 123 mg/dL (74-106)
--- NOTE | 2023-03-15 10:37 | CASEMGMT ---
MARTÍN GARCIA Assessment: Face to Face with pt for initial transition planning/care coordination assessment. RN RADHA introduced self and role at [facility], pt voices understanding and consents to assessment. Pt is A&O x4 and answers all questions appropriately at this time. Pt sitting up in chair in no distress with at bedside. Care providers, pharmacy, and demographics verified/updated. Admitting Dx: L THR PCP:Paige Saldana Specialists:Borrumarcie, ortho; Basali, pain mgmt; Gene pulm Preferred Pharmacy: [facility] Insurance: [employer] [facility] Prescription Benefit: yes LNOK: Ramiro Perdue, Living Arrangements: Pt lives with in a single story home with 1 step to enter. Pt reports she was I in ADL's and denies concerns at home. typically does meals, laundry and cleaning. Pt is able to assist pt at home. Transportation: Pt hasn't driven since August. Pt transports pt to medical appts. DME:[employer], [employer], [employer] technical lead senior developer, shower chair HHC/SNF: Denies hx of [facility]. Pt has been to a rehab in [place] but cannot recall the name of it. Pt states no concerns with going home at time of dc. She has outpt therapy set up at [facility] on Mar.17. Pt states no further concerns/needs. CM to follow. Advised pt to ask CM if any further question/concerns/needs arise, voices understanding. Pt Goal: Home with outpt therapy already set up Plan: Home with outpt therapy already set up
--- NOTE | 2023-03-15 15:33 | CASEMGMT ---
Social Work SW met with pt to discuss advance directives.? Pt confirms she has completed a living will and health care POA naming her Ramiro Perdue.? Pt notified that documents are not on file at [facility] and SW requested they be brought in for scanning into the EMR.? JAYSON Valenzuela
--- NOTE | 2023-03-15 16:18 | PCM.PN.ORT ---
Subjective Subjective Patient seen and examined.. Complaining of pain in the left hip has only been taking Tylenol. She did have syncope yesterday better today she is not lightheaded right now denies any chest pain shortness of breath fevers chills nausea she is eating. Objective Data Objective Data Vital Signs: Vital Signs Temp Pulse Resp BP Pulse Ox O2 Del Method O2 Flow Rate 98.7 F 73 18 100/87 H 100 Room Air 2 03/15/23 14:13 03/15/23 14:13 03/15/23 14:13 03/15/23 14:13 03/15/23 14:21 03/15/23 14:13 03/15/23 02:35 Oxygen Flow Rate (L/min) 2 Oxygen Delivery Method Room Air Weight: 200 lb Body Mass Index (BMI) 31.3 Intake & Output: Intake and Output for Last 24 Hours 03/13/23 03/14/23 03/15/23 23:59 23:59 23:59 Intake Total 3973.25 / 3973.25 1663.25 / 1663.25 Output Total 1100 / 1100 Balance 3973.25 / 3973.25 563.25 / 563.25 Lab / Micro Data 03/15/23 07:17 03/15/23 07:17 Labs: Laboratory Results - last 24 hr 03/15/23 07:17: WBC 12.6 H, RBC 3.13 L, Hgb 9.9 L, Hct 31.2 L, MCV 99.7 H, MCH 31.6, MCHC 31.7 L, RDW Std Deviation 47.4 H, RDW Coeff of Clarisse 13.1, Plt Count 263, MPV 10.3, Sodium 131 L, Potassium 4.6, Chloride 102, Carbon Dioxide 25.0, Anion Gap 4 L, BUN 13, Creatinine 0.80, Estim Creat Clear Calc 57.27, Est GFR (MDRD) Af Amer 90, Est GFR (MDRD) Non-Af 74, BUN/Creatinine Ratio 16.3, Glucose 132 H, Calcium 8.3 L 03/15/23 08:53: POC Glucose 123 H Micro: Microbiology 02/28/23 13:32 Swab (Method) Nasal Screen MRSA/MSSA - Final Physical Exam Const alert, oriented x3 and no apparent distress Extremity Extremity Narrative: Left hip dressing clean dry intact compartment soft neurovascular intact EHL tibialis anterior gastrocsoleus intact sensation light touch 2-4 pedal pulse Assessment & Plan Assessment/Plan (1) S/P total hip arthroplasty: QUALIFIERS: Laterality: left Qualified Code(s): Z96.642 - Presence of left artificial hip joint PLAN: Plan Postop day #1 left total hip arthroplasty PT OT weightbearing as tolerated to precautions DVT prophylaxis SCDs CECILIO hose Eliquis 2.5 mg twice daily Patient had 3 episodes of syncope or near syncope, although she is feeling well now denying any chest pain or shortness of breath in bed I will consult hospitalist Possible DC tomorrow
[2023-03-15] MEDS: oxyCODONE 5 MG Tablet PO ×2 (16:45→22:18)
[2023-03-15] MEDS: Atorvastatin Calcium 10 MG Tablet PO (19:59)
--- NOTE | 2023-03-15 20:14 | PCM.PN.HOSP ---
Subjective Subjective 77-year-old female presents to the hospital for an elective left total hip replacement secondary to osteoarthritis. Her home medical history has been stable prior to surgery however yesterday and into today she has had a couple of episodes of syncope or near syncope which she states happens whenever she is on a strong narcotic. She has taken 2 doses of her oxycodone postoperatively plus what ever she was given in the OR. Orthostatic vital signs today were positive with a diastolic drop from 98 to 51 between sitting and standing, she is on IV fluids and her renal function stable. She is feeling much better this evening denies any lightheadedness or dizziness currently. She did have some slight dizziness during orthostatic vital signs. Objective Data Objective Data Vital Signs: Vital Signs Temp Pulse Resp BP Pulse Ox O2 Del Method O2 Flow Rate 99.3 F H 91 18 110/54 L 97 Room Air 2 03/15/23 19:48 03/15/23 19:48 03/15/23 19:48 03/15/23 19:48 03/15/23 19:48 03/15/23 19:48 03/15/23 02:35 Oxygen Flow Rate (L/min) 2 Oxygen Delivery Method Room Air Weight: 200 lb Body Mass Index (BMI) 31.3 Intake & Output: Intake and Output for Last 24 Hours 03/14/23 03/15/23 03/16/23 03:59 03:59 03:59 Intake Total 5062.42 / 5062.42 1515.75 / 1515.75 Output Total 1000 / 1000 100 / 100 Balance 4062.42 / 4062.42 1415.75 / 1415.75 Lab / Micro Data 03/15/23 07:17 03/15/23 07:17 Labs: Laboratory Results - last 24 hr 03/15/23 07:17: WBC 12.6 H, RBC 3.13 L, Hgb 9.9 L, Hct 31.2 L, MCV 99.7 H, MCH 31.6, MCHC 31.7 L, RDW Std Deviation 47.4 H, RDW Coeff of Clarisse 13.1, Plt Count 263, MPV 10.3, Sodium 131 L, Potassium 4.6, Chloride 102, Carbon Dioxide 25.0, Anion Gap 4 L, BUN 13, Creatinine 0.80, Estim Creat Clear Calc 57.27, Est GFR (MDRD) Af Amer 90, Est GFR (MDRD) Non-Af 74, BUN/Creatinine Ratio 16.3, Glucose 132 H, Calcium 8.3 L 03/15/23 08:53: POC Glucose 123 H Micro: Microbiology 02/28/23 13:32 Swab (Method) Nasal Screen MRSA/MSSA - Final Physical Exam Narrative General: Alert, Oriented x3, Cooperative, No apparent distress HEENT: Atraumatic, PERRLA, EOMI, Normocephalic Oral: Moist Mucosa Neck: Supple, No JVD Lungs: Diminished, Normal air movement, No rhonchi, No wheeze, No rales Cardiovascular: Regular rate, Regular Rhythm, Normal S1, Normal S2, No murmurs Abdomen: Soft, Non Tender, Non-Distended, No Hepato-splenomegaly Extremities: No edema, Capillary Refill Less than 3 Seconds Skin: Dressing CDI Musculoskeletal: No Tenderness to Palpation of Joints or Extremities Neurological: Cranial nerves II-XII grossly intact, Motor Exam 5/5 strength throughout, Sensory exam intact to light touch and pain Psych/Mental Status: Normal Affect, Appropriate Assessment & Plan Assessment/Plan (1) S/P total hip arthroplasty: QUALIFIERS: Laterality: left Qualified Code(s): Z96.642 - Presence of left artificial hip joint (2) Syncope: PLAN: Plan 1. Status post left total hip arthroplasty on 03/14/2023 ? Pain management per primary the given her syncopal episodes today would hold off on frequent dosing of strong narcotics ? PT/OT ? Possible discharge in the morning if she remains stable 2. Syncope due to orthostatic hypotension ? This is postoperative and she states that she has had this before when she was on narcotics ? I encouraged her to only take Tylenol while here in the hospital, she can take oxycodone at night before bed to allow for restful sleep but to try to limit the amount of narcotics she gets during the day ? Her orthostatic vital signs are positive because of her diastolic drop from 98 mmHg to 51 mmHg from sitting to standing ? Continue with IV fluids ? Hemoglobin this morning was 9.9, would recommend repeat in the morning. Her baseline hemoglobin is around 13 3. GERD, hyperlipidemia, anxiety, depression are chronic medical conditions which complicate her care. Her home medications can be continued DVT: Eliquis twice daily Charges/Coding Visit Charges Inpatient E&M: 97296 Subs Hosp L2
[2023-03-16] VITALS (7 sets, daily range): BP systolic 102–131; BP diastolic 53–79; PULSE 92–102; RESP 16–18; TEMP 36.1–37.1; O2SAT 93–99
[2023-03-16] MEDS: 0.9% Normal Saline (1000mL) 1,000 ML 125 ML IV ×3 (00:26→17:10)
--- NOTE | 2023-03-16 05:38 | NURSING ---
pt assisted oob to bathroom, once standing the nurse noted multiple pills laying in the bed under the pt. pills were identified by pt as Benadryl & rosuvastatin - nurse noted 4 different types of pills benadryl, ambien, and two others that were unidentifiable. pt made aware that it is hospital policy that all home medications be locked up and medications will be returned to them upon discharge.
[2023-03-16] MEDS: Acetaminophen 500 MG Tablet 1000 MG PO ×3 (06:45→21:48)
[2023-03-16] MEDS: oxyCODONE 5 MG Tablet PO ×3 (06:45→18:14)
--- NOTE | 2023-03-16 07:38 | PN.ORTHO_ITS ---
Subjective Subjective Seen and examined. Doing okay has not had any further syncope. Nursing reports they found a bag of pills in her bed mostly Benadryl and some other medication patient claims was Claritin and a stool softener. Patient has not had a bowel movement complains of constipation denies any fevers chills nausea vomit shor tness of breath or chest pain. She has been very unsteady on her feet and not ready for discharge. Objective Data Objective Data Vital Signs: Vital Signs Temp Pulse Resp BP Pulse Ox O2 Del Method O2 Flow Rate 98.8 F 102 H 16 110/62 98 Room Air 2 03/16/23 06:48 03/16/23 06:48 03/16/23 06:48 03/16/23 06:48 03/16/23 06:48 03/16/23 06:48 03/15/23 02:35 Oxygen Flow Rate (L/min) 2 Oxygen Delivery Method Room Air Weight: 200 lb Body Mass Index (BMI) 31.3 Intake & Output: Intake and Output for Last 24 Hours 03/14/23 03/15/23 03/16/23 23:59 23:59 23:59 Intake Total 3973.25 / 3973.25 2604.92 / 2604.92 1747.92 / 1747.92 Output Total 1100 / 1100 Balance 3973.25 / 3973.25 1504.92 / 1504.92 1747.92 / 1747.92 Lab / Micro Data 03/15/23 07:17 03/15/23 07:17 Labs: Laboratory Results - last 24 hr 03/15/23 07:17: WBC 12.6 H, RBC 3.13 L, Hgb 9.9 L, Hct 31.2 L, MCV 99.7 H, MCH 31.6, MCHC 31.7 L, RDW Std Deviation 47.4 H, RDW Coeff of Clarisse 13.1, Plt Count 263, MPV 10.3, Sodium 131 L, Potassium 4.6, Chloride 102, Carbon Dioxide 25.0, Anion Gap 4 L, BUN 13, Creatinine 0.80, Estim Creat Clear Calc 57.27, Est GFR (MDRD) Af Amer 90, Est GFR (MDRD) Non-Af 74, BUN/Creatinine Ratio 16.3, Glucose 132 H, Calcium 8.3 L 03/15/23 08:53: POC Glucose 123 H Micro: Microbiology 02/28/23 13:32 Swab (Method) Nasal Screen MRSA/MSSA - Final Physical Exam Const alert, oriented x3 and no apparent distress Extremity Extremity Narrative: Left hip dressing clean dry intact compartment soft neurovascular intact EHL tibialis anterior gastrocsoleus intact sensation light touch 2-4 pedal pulse Assessment & Plan Assessment/Plan (1) S/P total hip arthroplasty: QUALIFIERS: Laterality: left Qualified Code(s): Z96.642 - Presence of left artificial hip joint (2) Syncope: QUALIFIERS: Syncope type: unspecified Qualified Code(s): R55 - Syncope and collapse (3) Constipation: QUALIFIERS: Constipation type: unspecified constipation type Qualified Code(s): K59.00 - Constipation, unspecified PLAN: Plan Postop day #2 left total hip arthroplasty PT OT weightbearing as tolerated to precautions DVT prophylaxis SCDs CECILIO hose Eliquis 2.5 mg twice daily Syncope has resolved Patient is unsteady on her feet and not safe for discharge home think she will benefit from transitional care versus rehab she is okay with this. He was counseled not to take any further medication from home and speak with us if she needs something. Will add MiraLAX for constipation she is already on Senokot. DC to transitional care/rehab.
--- NOTE | 2023-03-16 07:45 | DCINST_ITS ---
Discharge Instructions Diet Discharge Diet: No restrictions Activity Weight Bearing Status: Weight bearing as tolerated Dressing / Incision Call your doctor if you observe: Shortness of breath and Chest pain Additional Dressing/Incision Instructions:: Do not shower 72hrs. Begin daily showering warm water antibacterial soap postop day #3( 72hrs Post-operatively) and then daily. Leave the dressing on for 72 hours postoperatively then may remove prior to first shower and change dressing daily after this until no drainage for 2 consecutive days then may leave open to air. Follow hip precautions that were reviewed in hospital. Wear compression stockings, may remove at night. Start physical therapy as directed in hospital. Follow prescriptions instructions do not take any other pain medication or differ dosing without consulting your physician. Do not take oral NSAIDs until blood thinner has been completed , then may begin the day after completion if needed . Call Dr. Martin's office with any concerns. Follow Up Care Please Follow Up With: Michael Martin DO When: 2 weeks Test Results: Test results from this visit will be discussed in further detail at your follow- up appointment, if applicable. Discharge Plan Admission Admit Date/Time: 03/14/23 08:13 Primary Reason for Your Visit: Left total hip arthroplasty Attending Provider: Michael Martin Primary Care Provider: Paige Saldana Consulting Providers: Mauricio Hein Discharge Orders/Prescriptions Prescriptions: New polyethylene glycol 3350 17 gram Powder In Packet 17 g PO BID PRN (Reason: Constipation) Qty: 14 0RF acetaminophen 500 mg Tablet 1,000 mg PO Q8 Qty: 100 0RF oxycodone 5 mg Tablet 5 - 10 mg PO Q4H PRN PRN (Reason: Pain Score 4-10) 7 Days Qty: 60 0RF Eliquis 2.5 mg tablet 2.5 mg PO BID Qty: 42 0RF docusate sodium [Colace] 100 mg capsule 100 mg PO BID PRN (Reason: constipation) Qty: 60 0RF Continued cholecalciferol (vitamin D3) 2,000 unit capsule 2,000 unit PO QHS sertraline [Zoloft] 25 mg tablet 25 mg PO QDAY rosuvastatin 5 mg tablet 5 mg PO DAILY omeprazole 20 mg capsule,delayed release(DR/EC) 20 mg PO DAILY hydroxyzine HCl 50 mg tablet 100 mg PO QHS fexofenadine-pseudoephedrine [Sarah-D 12 Hour] 60-120 mg tablet extended release 12 hr 1 tab PO DAILY Discontinued meloxicam 15 mg tablet 15 mg PO DAILY Referrals / Follow Up: Paige Saldana, CABLE WAY OPERATOR-C [Primary Care Provider] - Disposition Disposition (needs filled in before D/C Order can be placed): [facility]
--- NOTE | 2023-03-16 07:57 | TREXTCAR_ITS ---
Diet Diet Order/Speech Therapy: 03/14/23 18:50 Diet: Regular - General Dietary Modifications:: Gluten Free Type of Dietary Supplement:: please make pt aware of w Is pt able to select menu?: Yes Wound(s) LEFT HIP: Wound Type: Surgical Incision Therapies Weight Bearing: Full weight bearing Problem/Diagnosis (1) S/P total hip arthroplasty: Status: Acute Code(s): Z96.649 - Presence of unspecified artificial hip joint (2) Syncope: Status: Acute Code(s): R55 - Syncope and collapse (3) Constipation: Status: Acute Code(s): K59.00 - Constipation, unspecified Plan Postop day #2 left total hip arthroplasty PT OT weightbearing as tolerated to precautions DVT prophylaxis SCDs CECILIO hose Eliquis 2.5 mg twice daily Syncope has resolved Patient is unsteady on her feet and not safe for discharge home think she will benefit from transitional care versus rehab she is okay with this. He was counseled not to take any further medication from home and speak with us if she needs something. Will add MiraLAX for constipation she is already on Senokot. DC to transitional care/rehab. *Dressing should be changed postop day #5 03/19/2023 cleaned with antibacterial soap and warm water and change daily at that point with a dry dressing Allergies/Procedures Done in Hospital Allergies Iodinated Contrast Media Allergy (Mild, Verified 03/14/23 09:10) unsure Sulfa (Sulfonamide Antibiotics) Allergy (Unknown, Verified 03/14/23 09:10) can use externally,not internally,unknown reaction when baby codeine Allergy (Verified 03/14/23 09:10) Hives gluten Allergy (Verified 03/14/23 09:10) CELIAC'S DISEASE Type of Care/Length of Stay Estimated LOS: Convalescent Care Less Than 30 days Type of Care Needed: Skilled Rehab Potential: Good Prognosis: Good Additional Orders/Day of Discharge Additional Orders: Dressing to be changed 03/19/2023 then cleaned and changed daily Day of Discharge: 03/16/23 Follow Up Care Please Follow Up With: Michael Martin DO When: 2 weeks Discharge Plan Admission Admit Date/Time: 03/14/23 08:13 Primary Reason for Your Visit: Left total hip arthroplasty Attending Provider: Michael Martin Primary Care Provider: Paige Saldana Consulting Providers: Mauricio Hein Discharge Orders/Prescriptions Prescriptions: New polyethylene glycol 3350 17 gram Powder In Packet 17 g PO BID PRN (Reason: Constipation) Qty: 14 0RF acetaminophen 500 mg Tablet 1,000 mg PO Q8 Qty: 100 0RF oxycodone 5 mg Tablet 5 - 10 mg PO Q4H PRN PRN (Reason: Pain Score 4-10) 7 Days Qty: 60 0RF Eliquis 2.5 mg tablet 2.5 mg PO BID Qty: 42 0RF docusate sodium [Colace] 100 mg capsule 100 mg PO BID PRN (Reason: constipation) Qty: 60 0RF Continued cholecalciferol (vitamin D3) 2,000 unit capsule 2,000 unit PO QHS sertraline [Zoloft] 25 mg tablet 25 mg PO QDAY rosuvastatin 5 mg tablet 5 mg PO DAILY omeprazole 20 mg capsule,delayed release(DR/EC) 20 mg PO DAILY hydroxyzine HCl 50 mg tablet 100 mg PO QHS fexofenadine-pseudoephedrine [Sarah-D 12 Hour] 60-120 mg tablet extended r elease 12 hr 1 tab PO DAILY Discontinued meloxicam 15 mg tablet 15 mg PO DAILY Referrals / Follow Up: Paige Saldana, FINANCIAL INVESTMENT MANAGER-C [Primary Care Provider] - Disposition Disposition (needs filled in before D/C Order can be placed): [facility] (1) S/P total hip arthroplasty Qualifiers: Laterality: left Qualified Code(s): Z96.642 - Presence of left artificial hip joint (2) Syncope Qualifiers: Syncope type: unspecified Qualified Code(s): R55 - Syncope and collapse (3) Constipation Qualifiers: Constipation type: unspecified constipation type Qualified Code(s): K59.00 - Constipation, unspecified
[2023-03-16 08:00] LABS: Hematocrit 26.3 % (37-47); Hemoglobin 8.5 g/dL (12.0-15.0); Mean Corp Hgb Conc 32.3 g/dL (32-36); Mean Corpuscular Hgb 32.3 pg (27.0-32.0); Platelet Count 204 K/mm3 (150-450); RBC Distribution Width CV 13.2 % (11.6-14.6); RBC Distribution Width SD 48.8 fl (35.1-43.9); Red Blood Count 2.63 M/mm3 (4.2-5.4); White Blood Count 7.8 K/mm3 (4.4-11.0)
[2023-03-16] MEDS: Pantoprazole Sodium 20 MG Tablet PO (09:49)
[2023-03-16] MEDS: APIXABAN 2.5 MG TABLET (WCH) PO ×2 (09:49→21:48)
[2023-03-16] MEDS: Senna/Docusate Sodium 1 Tablet 2 TABLET PO ×2 (09:49→21:48)
[2023-03-16] MEDS: Sertraline 50 MG Tablet 25 MG PO (09:49)
--- NOTE | 2023-03-16 10:20 | PN.HOSP_ITS ---
Reason for Visit Reason for Visit: Diagnoses Other acute postprocedural pain (03/14/23) Constipation, unspecified (03/14/23) Unilateral primary osteoarthritis, left hip (03/14/23) Syncope and collapse (03/14/23) Encounter for other preprocedural examination (03/14/23) Presence of left artificial hip joint (03/14/23) Subjective Subjective Patient is a 77-year-old lady who underwent left hip arthroplasty by Dr. Martin on 03/14/2023. Hospitalist service was consulted after patient developed syncopal episode Objective Data Objective Data Vital Signs: Vital Signs Temp Pulse Resp BP Pulse Ox O2 Del Method O2 Flow Rate 97.6 F L 98 18 103/53 L 99 Room Air 2 03/16/23 09:46 03/16/23 09:46 03/16/23 09:46 03/16/23 09:46 03/16/23 09:46 03/16/23 09:56 03/15/23 02:35 Oxygen Flow Rate (L/min) 2 Oxygen Delivery Method Room Air Weight: 90.718 kg Body Mass Index (BMI) 31.3 Intake & Output: Intake and Output for Last 24 Hours 03/14/23 03/15/23 03/16/23 23:59 23:59 23:59 Intake Total 3973.25 / 3973.25 2604.92 / 2604.92 1747.92 / 1747.92 Output Total 1100 / 1100 Balance 3973.25 / 3973.25 1504.92 / 1504.92 1747.92 / 1747.92 Lab / Micro Data 03/16/23 07:35 03/15/23 07:17 Labs: Laboratory Results - last 24 hr 03/16/23 07:35: WBC 7.8, RBC 2.63 L, Hgb 8.5 L, Hct 26.3 L, MCV 100.0 H, MCH 32.3 H, MCHC 32.3, RDW Std Deviation 48.8 H, RDW Coeff of Clarisse 13.2, Plt Count 204, MPV 10.0 Micro: Microbiology 02/28/23 13:32 Swab (Method) Nasal Screen MRSA/MSSA - Final Physical Exam Narrative GENERAL: cooperative HEENT: Atraumatic; normocephalic EYES; Anicteric, Normal Conjunctiva NECK; supple, normal thyroid, RESPIRATORY: Diminished to auscultation CARDIOVASCULAR: Regular S1 S2, GI: soft, normoactive bowel sounds, : No Renal angle tenderness; EXTREMITIES: No edema, no clubbing, MUSCULOSKELETAL: no muscle wasting NEURO: Awake; no lateralizing signs. SKIN: No Rash PSYCH; Flat affect Assessment & Plan Assessment/Plan (1) S/P total hip arthroplasty: QUALIFIERS: Laterality: left Qualified Code(s): Z96.642 - Presence of left artificial hip joint (2) Syncope: QUALIFIERS: Syncope type: unspecified Qualified Code(s): R55 - Syncope and collapse PLAN: Plan Patient is a 77-year-old lady who underwent left hip arthroplasty by Dr. Martin on 03/14/2023. Hospitalist service was consulted after patient developed syncopal episode 1. Status post left total hip arthroplasty on 03/14/2023 ? As a result of left hip osteoarthritis having failed conservative therapy. Jeffery tient postoperative orders regarding pain management DVT prophylaxis and PT OT deferred to primary service 2. Syncopal episode ? Secondary to orthostasis. Patient resuscitated with fluids blood pressure medications held 3. Dyslipidemia -Patient is on statin therapy, continued at home dose 4. GERD ? On PPI 5. Depression with anxiety Did continue patient SSRI as well as hydroxyzine as needed 6. Obstructive sleep apnea ? Consistent use of PAP therapy encouraged 7. DVT prophylaxis ? Eliquis Time spent in the patient's overall evaluation,decision-making process, review of diagnostic data, adjustment of management, discussion with other providers, nursing nursing and ancillary staff involved in patient's care documentation, 50 Minutes Charges/Coding Visit Charges Inpatient E&M: 27746 [facility] L3
--- NOTE | 2023-03-16 11:42 | PHA.DC.MC.R ---
Pharmacy [facility] Pharmacy Service has performed discharge medication reconciliation and counseling for this patient. The patient's discharge medication list was reviewed for discrepancies and discrepancies were resolved. The patient was counseled on the following discharge medications and changes in medications for homegoing were reviewed. 1. ELIQUIS 2. OXYCODONE 3. TYLENOL The Reason for Use, instructions for use, and potential side effects were reviewed for all new medications. The patient's questions regarding all of their medications were answered. The patient was able to verbally demonstrate an understanding of their discharge medications. NOTE: Patient's medications originally sent to [facility] retail pharmacy. Patient/ pt family requested medications be sent to [facility] where they have a zero copay. Notified [facility] retail, and they will transfer prescriptions. Went back into the patient's room to notify them about medications being transferred. Medications at Discharge Home Medications cholecalciferol (vitamin D3) 50 mcg (2,000 unit) capsule 2,000 unit PO QHS SUPPLEMENT 09/27/17 sertraline 25 mg tablet (Zoloft) 25 mg PO QDAY DEPRESSION 09/27/17 rosuvastatin 5 mg tablet 5 mg PO DAILY CHOLESTEROL 03/28/19 fexofenadine 60 mg-pseudoephedrine ER 120 mg tablet,ext.release,12 hr (Sarah-D 12 Hour) 1 tab PO DAILY allergy symptoms 12/26/22 hydroxyzine HCl 50 mg tablet 100 mg PO QHS ANXIETY 12/26/22 omeprazole 20 mg capsule,delayed release 20 mg PO DAILY GERD 12/26/22 acetaminophen 500 mg tablet 1,000 mg (2 x 500 mg) PO Q8 #100 tabs 03/16/23 apixaban 2.5 mg tablet (Eliquis) 2.5 mg PO BID #42 tabs 03/16/23 docusate sodium 100 mg capsule (Colace) 100 mg PO BID PRN constipation #60 caps 03/16/23 oxycodone 5 mg tablet 5 - 10 mg (1 - 2 x 5 mg) PO Q4H PRN PRN Pain Score 4-10 7 days #60 tabs 03/16/23 polyethylene glycol 3350 17 gram oral powder packet 17 g PO BID PRN Constipation #14 ea 03/16/23
--- NOTE | 2023-03-16 13:07 | CASEMGMT ---
Addendum entered by Ruby Daniel 03/16/23 13:42: Social Work TCU is able to accept pt and precert has been started. Pt and updated and agreeable with discharge plan. Plan: TCU, pending precert JAYSON Valenzuela Original Note: Social Work SW informed that physician is recommending short term rehab prior to return home. SW met with pt and spouse and introduced self and role of SW. SW spoke with pt regarding discharge plan. Pt and spouse feel pt can return home. Call placed to therapy who feels pt would benefit from SNF prior to return home. SW explained physician and therapy recommendations and A list of SNF providers including quality and resource use data and consistent with the patient?s preferred geographic region, medical needs, and insurance network were provided from the [employer] Guide. SW allowed pt and spouse time to consider options. SW reentered pt room and pt and spouse agreeable to SNF at TCU. Referral sent to TCU. SW will await determination of acceptance. Pt will need precert prior to discharge. Plan: TCU, pending acceptance and precert JAYSON Valenzuela
--- NOTE | 2023-03-16 17:44 | CASEMGMT ---
MARTÍN GARCIA NOTE: Pt had an appt @ [facility] for OP therapy tomorrow. They are closed now and MARTÍN GARCIA unable to call to cx the appt. MARTÍN GARCIA to room. Pt states she will have her call 1st thing in the morning to cancel this. Phone number to [facility] provided. Eneida PHELAN RN, CM
[2023-03-16] MEDS: Atorvastatin Calcium 10 MG Tablet PO (21:48)
[2023-03-17] MEDS: 0.9% Normal Saline (1000mL) 1,000 ML 125 ML IV (01:09)
[2023-03-17 02:27] VITALS: BP 158/75; PULSE 105; RESP 18; TEMP 36.1; O2SAT 96
[2023-03-17] MEDS: oxyCODONE 5 MG Tablet PO (02:35)
[2023-03-17 05:31] LABS: Hematocrit 24.9 % (37-47); Hemoglobin 7.9 g/dL (12.0-15.0); Mean Corp Hgb Conc 31.7 g/dL (32-36); Mean Corpuscular Volume 100.8 fL (81-99); Mean Platelet Vol. 10.1 fl (6.2-12.0); Platelet Count 210 K/mm3 (150-450); RBC Distribution Width CV 13.3 % (11.6-14.6); RBC Distribution Width SD 48.9 fl (35.1-43.9); Red Blood Count 2.47 M/mm3 (4.2-5.4); White Blood Count 7.5 K/mm3 (4.4-11.0)
[2023-03-17] MEDS: Acetaminophen 500 MG Tablet 1000 MG PO (06:33)
[2023-03-17 07:25] VITALS: BP 142/54; PULSE 99; RESP 16; TEMP 36.9; O2SAT 96
--- NOTE | 2023-03-17 08:25 | PN.HOSP_ITS ---
Reason for Visit Reason for Visit: Diagnoses Other acute postprocedural pain (03/14/23) Constipation, unspecified (03/14/23) Unilateral primary osteoarthritis, left hip (03/14/23) Syncope and collapse (03/14/23) Encounter for other preprocedural examination (03/14/23) Presence of left artificial hip joint (03/14/23) Subjective Subjective Patient seen hemoglobin down to 7.9. Awaiting insurance precertification prior to transfer to [facility] for Objective Data Objective Data Vital Signs: Vital Signs Temp Pulse Resp BP Pulse Ox O2 Del Method O2 Flow Rate 98.5 F 99 16 142/54 H 96 Room Air 2 03/17/23 07:25 03/17/23 07:25 03/17/23 07:25 03/17/23 07:25 03/17/23 07:25 03/17/23 07:25 03/16/23 22:00 Oxygen Flow Rate (L/min) 2 Oxygen Delivery Method Room Air Weight: 90.718 kg Body Mass Index (BMI) 31.3 Intake & Output: Intake and Output for Last 24 Hours 03/15/23 03/16/23 03/17/23 23:59 23:59 23:59 Intake Total 2604.92 / 2604.92 3147.92 / 3147.92 1808.34 / 1808.34 Output Total 1100 / 1100 1900 / 1900 Balance 1504.92 / 1504.92 3147.92 / 2547.92 -91.66 / -91.66 Lab / Micro Data 03/17/23 04:51 03/15/23 07:17 Labs: Laboratory Results - last 24 hr 03/17/23 04:51: WBC 7.5, RBC 2.47 L, Hgb 7.9 L, Hct 24.9 L, MCV 100.8 H, MCH 32.0, MCHC 31.7 L, RDW Std Deviation 48.9 H, RDW Coeff of Clraisse 13.3, Plt Count 210, MPV 10.1 Micro: Microbiology 02/28/23 13:32 Swab (Method) Nasal Screen MRSA/MSSA - Final Physical Exam Narrative GENERAL: cooperative HEENT: Atraumatic; normocephalic EYES; Anicteric, Normal Conjunctiva NECK; supple, normal thyroid, RESPIRATORY: Diminished to auscultation CARDIOVASCULAR: Regular S1 S2, GI: soft, normoactive bowel sounds, : No Renal angle tenderness; EXTREMITIES: No edema, no clubbing, MUSCULOSKELETAL: no muscle wasting NEURO: Awake; no lateralizing signs. SKIN: No Rash PSYCH; Flat affect Assessment & Plan Assessment/Plan (1) S/P total hip arthroplasty: QUALIFIERS: Laterality: left Qualified Code(s): Z96.642 - Presence of left artificial hip joint (2) Syncope: QUALIFIERS: Syncope type: unspecified Qualified Code(s): R55 - Syncope and collapse PLAN: Plan Patient is a 77-year-old lady who underwent left hip arthroplasty by Dr. Martin on 03/14/2023. Hospitalist service was consulted after patient developed syn copal episode 1. Status post left total hip arthroplasty on 03/14/2023 ? As a result of left hip osteoarthritis having failed conservative therapy. Patient postoperative orders regarding pain management DVT prophylaxis and PT OT deferred to primary service 2. Syncopal episode ? Secondary to orthostasis. Patient resuscitated with fluids blood pressure medications held 3. Dyslipidemia -Patient is on statin therapy, continued at home dose 4. GERD ? On PPI 5. Depression with anxiety Did continue patient SSRI as well as hydroxyzine as needed 6. Obstructive sleep apnea ? Consistent use of PAP therapy encouraged 7. Anemia - Secondary to chronic disorder as well as acute blood loss anemia following surgery monitoring H&H and transfuse if patient becomes symptomatic or hemoglobin falls below 7 8. DVT prophylaxis ? Eliquis Time spent in the patient's overall evaluation,decision-making process, review of diagnostic data, adjustment of management, discussion with other providers, nursing nursing and ancillary staff involved in patient's care documentation, 40 Minutes Charges/Coding Visit Charges Inpatient E&M: 83310 [facility] Hosp L2
[2023-03-17] MEDS: Senna/Docusate Sodium 1 Tablet 2 TABLET PO (09:13)
[2023-03-17] MEDS: Pantoprazole Sodium 20 MG Tablet PO (09:13)
[2023-03-17] MEDS: APIXABAN 2.5 MG TABLET (WCH) PO (09:13)
[2023-03-17] MEDS: Sertraline 50 MG Tablet 25 MG PO (09:14)
--- NOTE | 2023-03-17 11:15 | CASEMGMT ---
Social Work Precert has been received for pt to go to TCU. SW met with pt and spouse and updated that precert has been obtained and pt can go to TCU today. Pt stating that she is doing much better today and feels she can return home. SW met with therapy and requested pt be seen and reevaluated for home vs TCU. MEDICAL RECORD ASSISTANT worked with pt and is now recommending home with outpatient therapy. RNCM notified and bedside nurse notified. Bedside nurse to update Dr. Crowder. Reanna in TCU notified to cancel admission. [facility]
--- NOTE | 2023-03-17 12:00 | CASEMGMT ---
Addendum entered by Heena Freeman 03/17/23 14:34: 1232- TC to [facility] pt cost of eliquis is $32.97. Original Note: TC to Yesenia at [facility] pharmacy to check cost of medications. She states there was confusion yesterday if pt wanted her meds here or [facility] or if pt was going to SNF. RN CM into pt room, pt states she wants her meds filled at [facility] aware and will trf rx. Pt states she will reshchedule her outpt therapy at [facility]. She denies need for assistance with this and neither does .
--- NOTE | 2023-03-21 10:56 | DS.PCM_ITS ---
Providers Date of Admission: 03/14/23 Primary Care Physician: DENNIS Lambert Consultations 03/15/23 16:23 Consult: Hospitalist Routine Consulting Provider: Mauricio Hein Reason for Consult: syncope x3 post op EMERGENT Consult: No MD Notified: Yes Date Notified: 03/15/23 Time Notified: 16:23 Method of Notification: backline Reason For Visit: Left Total Hip Replacement Robotic Diagnosis Discharge Diagnosis (1) S/P total hip arthroplasty: Status: Acute Code(s): Z96.649 - Presence of unspecified artificial hip joint Qualifiers: Laterality: left Qualified Code(s): Z96.642 - Presence of left artificial hip joint (2) Syncope: Status: Acute Code(s): R55 - Syncope and collapse Qualifiers: Syncope type: unspecified Qualified Code(s): R55 - Syncope and collapse Plan Postop day #2 left total hip arthroplasty PT OT weightbearing as tolerated to precautions DVT prophylaxis SCDs CECILIO hose Eliquis 2.5 mg twice daily Syncope has resolved Patient is unsteady on her feet and not safe for discharge home think she will benefit from transitional care versus rehab she is okay with this. He was counseled not to take any further medication from home and speak with us if she needs something. Will add MiraLAX for constipation she is already on Senokot. DC to transitional care/rehab. *Dressing should be changed postop day #5 03/19/2023 cleaned with antibacterial soap and warm water and change daily at that point with a dry dressing Medications at Discharge Home Medications cholecalciferol (vitamin D3) 50 mcg (2,000 unit) capsule 2,000 unit PO QHS SUPPLEMENT 09/27/17 sertraline 25 mg tablet (Zoloft) 25 mg PO QDAY DEPRESSION 09/27/17 rosuvastatin 5 mg tablet 5 mg PO DAILY CHOLESTEROL 03/28/19 fexofenadine 60 mg-pseudoephedrine ER 120 mg tablet,ext.release,12 hr (Sarah-D 12 Hour) 1 tab PO DAILY allergy symptoms 12/26/22 hydroxyzine HCl 50 mg tablet 100 mg PO QHS ANXIETY 12/26/22 omeprazole 20 mg capsule,delayed release 20 mg PO DAILY GERD 12/26/22 acetaminophen 500 mg tablet 1,000 mg (2 x 500 mg) PO Q8 #100 tabs 03/16/23 apixaban 2.5 mg tablet (Eliquis) 2.5 mg PO BID #42 tabs 03/16/23 docusate sodium 100 mg capsule (Colace) 100 mg PO BID PRN constipation #60 caps 03/16/23 oxycodone 5 mg tablet 5 - 10 mg (1 - 2 x 5 mg) PO Q4H PRN PRN Pain Score 4-10 7 days #60 tabs 03/16/23 polyethylene glycol 3350 17 gram oral powder packet 17 g PO BID PRN Constipation #14 ea 03/16/23 Hospital Course Operations total hip replacement Summary of Care Provided Hospital Course: Patient with long-standing history of severe left hip DJD who is failed conservative treatment. Patient underwent left total hip arthroplasty day of admission. Patient did receive pre-and postoperative antibiotics which were discontinued within 23 hours postoperatively. Patient did receive spinal anesthesia and postoperatively her pain was controlled with both IV and p.o. pain medication. Patient did receive 2 g of tranexamic acid. Her hemoglobin and hematocrit were monitored postoperatively as well as her vital signs and she did not require any blood transfusion. Patient did develop syncope postoperatively she was given fluids hospitalist was consulted her blood pressure medications were held and she remained stable no further workup was deemed necessary and she progress with her physical therapy. dressing will be changed daily beginning postop day #3 before shower will be removed and replaced after. Pt was started on Eliquis 2.5 mg twice daily postop day #1 for which will continue for 3 weeks post hospital discharge . Patient did have postoperative constipation she was given MiraLAX and Senokot and was discharged with a stool softener , patient was seen by physical therapy was ambulating the halls well however was not stable on her feet on her own and did require much assist therefore patient was set up for discharge to [facility] facility on 03/17/2023 after which she will start outpatient physical therapy immediately. will follow-up in the office in 2 weeks. No intrahospital complications. Physical Exam Const alert, oriented x3 and no apparent distress Extremity Extremity Narrative: Left hip dressing clean dry intact compartment soft neurovascular intact EHL tibialis anterior gastrocsoleus intact sensation light touch 2-4 pedal pulse Weight / BMI Weight Weight: 200 lb Body Mass Index (BMI) 31.3 ABG / Lab / Microbiology Data 03/17/23 04:51 03/15/23 07:17 Microbiology: Microbiology 02/28/23 13:32 Swab (Method) Nasal Screen MRSA/MSSA - Final D/C Instructions Discharge Diet: No restrictions Weight Bearing Status: Weight bearing as tolerated Call your doctor if you observe: Shortness of breath and Chest pain Additional Dressing/Incision Instructions: Do not shower 72hrs. Begin daily showering warm water antibacterial soap postop day #3( 72hrs Post-operatively) and then daily. Leave the dressing on for 72 hours postoperatively then may remove prior to first shower and change dressing daily after this until no drainage for 2 consecutive days then may leave open to air. Follow hip precautions that were reviewed in hospital. Wear compression stockings, may remove at night. Start physical therapy as directed in hospital. Follow prescriptions instructions do not take any other pain medication or differ dosing without consulting your physician. Do not take oral NSAIDs until blood thinner has been completed , then may begin the day after completion if needed . Call Dr. Martin's office with any concerns. Please Follow Up With: Michael Martin DO When: 2 weeks Meaningful Use Info Meaningful Use Diagnoses (Choose all that apply): None applicable Discharge Plan Admission Admit Date/Time: 03/14/23 08:13 Primary Reason for Your Visit: Left total hip arthroplasty Attending Provider: Gonzalez Abdi Primary Care Provider: Paige Saldana Consulting Providers: Mauricio Hein; Michael Martin Discharge Orders/Prescriptions Prescriptions: New polyethylene glycol 3350 17 gram Powder In Packet 17 g PO BID PRN (Reason: Constipation) Qty: 14 0RF acetaminophen 500 mg Tablet 1,000 mg PO Q8 Qty: 100 0RF oxycodone 5 mg Tablet 5 - 10 mg PO Q4H PRN PRN (Reason: Pain Score 4-10) 7 Days Qty: 60 0RF Eliquis 2.5 mg tablet 2.5 mg PO BID Qty: 42 0RF docusate sodium [Colace] 100 mg capsule 100 mg PO BID PRN (Reason: constipation) Qty: 60 0RF Continued cholecalciferol (vitamin D3) 2,000 unit capsule 2,000 unit PO QHS sertraline [Zoloft] 25 mg tablet 25 mg PO QDAY rosuvastatin 5 mg tablet 5 mg PO DAILY omeprazole 20 mg capsule,delayed release(DR/EC) 20 mg PO DAILY hydroxyzine HCl 50 mg tablet 100 mg PO QHS fexofenadine-pseudoephedrine [Sarah-D 12 Hour] 60-120 mg tablet extended release 12 hr 1 tab PO DAILY Discontinued meloxicam 15 mg tablet 15 mg PO DAILY Referrals / Follow Up: Paige Saldana, TURNING AND BEADING MACHINE OPERATOR-C [Primary Care Provider] - Disposition Disposition (needs filled in before D/C Order can be placed): Detention Facility
== END 2023-03-17 12:53 | disposition home or self-care (01) | DRG 470 ==
LOC: ACINP 08:20 → MS3 16:25
PROVIDERS: Anesthesiology; Admitting Provider Orthopaedic Surgery; PCP Nurse Practitioner Family; Referring Provider Orthopaedic Surgery; Visit Provider Internal Medicine
PROC: 8E0Y0CZ Robotic Assisted Procedure of Lower Extremity, Open Approach (ICD-10-PCS; CPT 27130; principal; 2023-03-14 10:35)
DX: M16.12 Unilateral primary osteoarthritis, left hip (principal); D62 Acute posthemorrhagic anemia; F32.A Depression, unspecified; E78.00 Pure hypercholesterolemia, unspecified; I95.1 Orthostatic hypotension; I95.81 Postprocedural hypotension; M54.50 Low back pain, unspecified; M54.16 Radiculopathy, lumbar region; K21.9 Gastro-esophageal reflux disease without esophagitis; F41.9 Anxiety disorder, unspecified; G47.33 Obstructive sleep apnea (adult) (pediatric); K59.00 Constipation, unspecified; Z79.899 Other long term (current) drug therapy
CPT/HCPCS: 36415; 73502; 80048; 82962; 82985; 83036; 83735; 85027; 85610; 85730; 86850; 86900; 86901; 87077; 87081; 88305; 88311; 94668; 97110; 97162; 97166; 97530; 97535; C1776; J7030; J7120; J2405; J3475

== ENCOUNTER 2023-04-04 11:11 | Emergency (ER) | payer MEDICARE, SELFPAY ==
[2023-04-04 11:13] VITALS: BP 131/84; PULSE 95; RESP 20; TEMP 36.7; O2SAT 99; BMI 29.5
--- NOTE | 2023-04-04 11:22 | EKG12_ITS ---
Test Reason : DYSPNEA Blood Pressure : / mmHG Vent. Rate : 090 BPM Atrial Rate : 090 BPM P-R Int : 130 ms QRS Dur : 076 ms QT Int : 370 ms P-R-T Axes : -66 008 073 degrees QTc Int : 452 ms Unusual P axis and short AL, probable junctional tachycardia Abnormal ECG Confirmed by ANDREW MAR, ANUP ([id number]), manager editorial FLORINDA GARCIA ([id number]) on 04/11/2023 8:13:01 AM Referred By: DREW Confirmed By:ANUP MORALES MD
--- NOTE | 2023-04-04 11:30 | EDS_ITS ---
HPI <DENNIS Guardado - Last Filed: 04/04/23 15:19> History of Present Illness Chief Complaint: Anxiety Narrative Narrative: 77-year-old female with history of anxiety, depression, hyperlipidemia obstructive sleep apnea who recently had a left hip replacement on March 17 presents to the emergency department for ongoing anxiety attacks. Per the patient's , whenever she has anxiety, she has hyperventilation episodes and then she passes out. Patient had 3 of these in the last 24 hours. She patient was at the [facility], an acute care hospital clinic for a concern for COVID-19, because her sister had COVID during the holidays, she had a near syncopal episode and started hyp erventilating and was brought here. Patient denies any pain. Patient arouses to verbal stimuli. [facility] <DENNIS Guardado - Last Filed: 04/04/23 15:19> [facility] Medical History Abnormal mammogram of left breast Abnormal ultrasound of breast Acute bronchitis Acute pneumonia Anemia Anxiety Arthritis Asthma Back pain BiPAP (biphasic positive airway pressure) dependence Bladder disease Breast nodule Bronchitis Celiac disease Contact with or suspected exposure to other viral communicable disease Depression Depression Diarrhea Easy bruising Gastric reflux High cholesterol History of pain when walking Hypercholesteremia Leg cramps Migraine headache Nocturia more than twice per night Non-smoker GILBERT (obstructive sleep apnea) Sleep apnea Vertigo Vitamin D deficiency, unspecified Walker as ambulation aid Wears dentures Wears glasses Wears hearing aid Home Medications cholecalciferol (vitamin D3) 50 mcg (2,000 unit) capsule 2,000 unit PO QHS SUPPLEMENT 09/27/17 [History Last Taken 03/13/23] rosuvastatin 5 mg tablet 5 mg PO DAILY CHOLESTEROL 03/28/19 [History Last Taken 03/13/23] fexofenadine 60 mg-pseudoephedrine ER 120 mg tablet,ext.release,12 hr (Sarah-D 12 Hour) 1 tab PO DAILY allergy symptoms 12/26/22 [History Last Taken 03/13/23] hydroxyzine HCl 50 mg tablet 100 mg PO QHS ANXIETY 12/26/22 [History Last Taken 03/13/23] omeprazole 20 mg capsule,delayed release 20 mg PO DAILY GERD 12/26/22 [History Last Taken 03/14/23 06:15] acetaminophen 500 mg tablet 1,000 mg (2 x 500 mg) PO Q8 #100 tabs 03/16/23 [Rx Last Taken Unknown] apixaban 2.5 mg tablet (Eliquis) 2.5 mg PO BID #42 tabs 03/16/23 [Rx Last Taken Unknown] docusate sodium 100 mg capsule (Colace) 100 mg PO BID PRN constipation #60 caps 03/16/23 [Rx Last Taken Unknown] oxycodone 5 mg tablet 5 - 10 mg (1 - 2 x 5 mg) PO Q4H PRN PRN Pain Score 4-10 7 days #60 tabs 03/16/23 [Rx Last Taken Unknown] polyethylene glycol 3350 17 gram oral powder packet 17 g PO BID PRN Constipation #14 ea 03/16/23 [Rx Last Taken Unknown] duloxetine 20 mg capsule,delayed release (Cymbalta) 20 mg PO DAILY 03/29/23 [History Last Taken Unknown] cephalexin 500 mg capsule 500 mg PO Q8H 7 days #21 caps 04/04/23 [Rx Last Taken Unknown] sertraline 25 mg tablet 25 mg PO DAILY 04/04/23 [History Last Taken Unknown] Allergy/AdvReac Type Severity Reaction Status Date / Time Iodinated Contrast Media Allergy Mild unsure Verified 04/04/23 11:12 Sulfa (Sulfonamide Allergy Unknown can use Verified 04/04/23 11:12 Antibiotics) externally,not internally,unknown reaction when baby codeine Allergy Hives Verified 04/04/23 11:12 gluten Allergy CELIAC'S Verified 04/04/23 11:12 DISEASE Family History Mother Cancer Breast cancer Father Suicide Brother Alcoholic Surgical History H/O bladder repair surgery H/O cataract extraction H/O hernia repair H/O: hysterectomy History of colonoscopy (~2016) Hx of breast biopsy S/P spinal surgery Social History Smoking Status: Never smoker alcohol intake: current alcohol intake frequency: holidays/special occasions only substance use type: does not use ROS <DENNIS Guardado - Last Filed: 04/04/23 15:19> ROS ED ROS Narrative Constitutional: Negative for fever, chills, weight loss. Positive for generalized weakness Eyes: Negative for vision loss, vision change, double vision ENT: Negative for any sore throat, ear pain, congestion Cardiovascular: Negative for any chest pain, tightness, palpitations Respiratory: Negative for any cough, sputum production, hemoptysis, dyspnea, dyspnea on exertion, orthopnea Gastrointestinal: Negative for any abdominal pain, nausea, vomiting, diarrhea, constipation, blood in stool, blood in vomit : Negative for any urinary frequency, dysuria, retention, blood in urine Muscle skeletal: Negative for any myalgias, arthralgias, neck pain, back pain. Positive for left hip pain secondary to surgery Neurological: Negative for any headache, syncope, paresthesias, dizziness Skin: Negative for any rashes, lumps, itching, abrasions, lacerations Psychiatric: Negative for any depression, anxiety, stress, suicidal ideation, homicidal ideation Hematologic: Negative for any easy bruising, excessive bruising, easy bleeding Allergies: Negative for any eczema, hives, rash EXAM <DENNIS Guardado - Last Filed: 04/04/23 15:19> Physical Exam Narrative Exam Narrative: Vital signs reviewed. On my arrival to the room, the patient's was holding her head and rubbing her face. When I asked the patient to question, she does not answer however the says hey, you need to answer, then the patient answers. Patient generally states that she does not feel well. Per the , she has had these episodes before. HEET: Head normocephalic atraumatic, TMs clear bilaterally. Posterior pharynx is clear, dry mucous membranes. Nares clear bilaterally. Neck: Supple with no lymphadenopathy or tenderness. No signs of meningismus. Cardiac: Regular rate and rhythm no murmurs gallops or rubs, equal peripheral pulses bilaterally. Respiratory: Lungs clear to auscultation bilaterally. No chest tenderness. Abdomen: Soft, nontender, nondistended. No abdominal bruit or pulsatile masses. No hepatosplenomegaly Extremities: No peripheral edema, no signs of gross trauma or deformity. Active full range of motion of all extremities. Neuro: Cranial nerves II through XII intact, no focal neurological deficits. Difficult to obtain examination at this time secondary the patient not being cooperative Skin: Clean dry and intact with no rash, purpura, petechiae, vesicles or pustules. Skin is pale Backs/flank: No CVA tenderness, no midline spinal tenderness, no deformity. Psych: Normal mood and affect. No SI, HI or acute psychosis. Const Vital Signs: 04/04/23 11:13 04/04/23 11:45 04/04/23 11:51 Temperature 98.1 F Temperature Source Oral Pulse Rate 95 Respiratory Rate 20 H Respiratory Pattern Normal Blood Pressure 131/84 H Blood Pressure Mean 99 Pulse Ox 99 96 Oxygen Delivery Method Room Air Room Air 04/04/23 14:27 Temperature Temperature Source Pulse Rate 88 Respiratory Rate 16 Respiratory Pattern Blood Pressure 139/64 H Blood Pressure Mean 89 Pulse Ox 96 Oxygen Delivery Method Room Air Positive well nourished and well developed General Appearance ED: well developed <Dr. Shahab Thayer, DO - Last Filed: 04/06/23 01:57> Physical Exam Const Vital Signs: 04/04/23 11:13 04/04/23 11:45 04/04/23 11:51 Temperature 98.1 F Temperature Source Oral Pulse Rate 95 Respiratory Rate 20 H Respiratory Pattern Normal Blood Pressure 131/84 H Blood Pressure Mean 99 Pulse Ox 99 96 Oxygen Delivery Method Room Air Room Air 04/04/23 14:27 Temperature Temperature Source Pulse Rate 88 Respiratory Rate 16 Respiratory Pattern Blood Pressure 139/64 H Blood Pressure Mean 89 Pulse Ox 96 Oxygen Delivery Method Room Air MDM <DENNIS Guardado - Last Filed: 04/04/23 15:19> [facility] Lab Data Labs: Laboratory Results - last 24 hr 04/04/23 04/04/23 04/04/23 11:20 14:18 14:20 WBC 4.7 RBC 3.53 L Hgb 11.1 L Hct 34.9 L MCV 98.9 MCH 31.4 MCHC 31.8 L RDW Std Deviation 47.1 H RDW Coeff of Clarisse 13.1 Plt Count 406 MPV 9.6 Immature Gran % (Auto) 0.200 Neut % (Auto) 42.6 L Lymph % (Auto) 42.8 H [place] % (Auto) 12.1 H Eos % (Auto) 1.5 Baso % (Auto) 0.8 Absolute Neuts (auto) 2.0 Absolute Lymphs (auto) 2.02 Nucleated RBC % 0 D-Dimer Quant (PE/DVT) 3.65 H* Sodium 138 Potassium 4.0 Chloride 108 H Carbon Dioxide 23.0 Anion Gap 7 BUN 21 H Creatinine 0.82 Estim Creat Clear Calc 57.96 Est GFR (MDRD) Af Amer 87 Est GFR (MDRD) Non-Af 72 BUN/Creatinine Ratio 25.6 H Glucose 99 Calcium 9.4 Troponin I High Sens 7 7 Urine Color Yellow Urine Clarity Sl. Cloudy Urine pH 7.0 Ur Specific [place] 1.010 Urine Protein Negative Urine Glucose (UA) Normal Urine Ketones Negative Urine Occult Blood Negative Urine Nitrite Positive H Urine Bilirubin Negative Urine Urobilinogen Normal Ur Leukocyte Esterase 500 H Urine RBC 0-5 SEEN Urine WBC 5-10 SEEN Ur Squamous Epith Cells 0-5 SEEN Urine Bacteria 3+ Urine Mucus 0 SEEN Radiography Diagnostic Testing: Clinical Impression(s) from Imaging Studies Chest CTA 04/04/23 11:47 IMPRESSION: No demonstrated pulmonary embolism or arterial dissection. Minimal lower lobe dependent atelectasis. Atherosclerosis. Evidence of prior granulomatous disease. Electronically Signed: Emma Armenta MD at 13:44 EST , Chest X-Ray 04/04/23 11:57 IMPRESSION: No radiographic evidence of acute cardiopulmonary disease. Electronically Signed: Emma Armenta MD at 12:36 EST , EKG Sinus: Attestation: I personally reviewed and interpreted this EKG as follows: Comments: Sinus rhythm with a rate of 90 bpm, MN 130 ms, QRS duration 76 ms, no acute ST elevation, no acute infarct noted. Treatment and Re-Evaluation :: Patient appears to be in no obvious respiratory distress, vital signs are stable. Presenting to the emergency department for hyperventilation, weakness. Patient differential diagnosis includes CVA, anemia, orthostatic hypotension, viral-like illness, cardiac disease. Patient received a full cardiac workup. Patient received IV fluids. laboratory values will be obtained concerning for any anemia, electrolyte abnormality, renal function, any elevation in troponin. Patient's CBC was unremarkable, patient's hemoglobin is 11.1, this is an improvement from March 17 of this year when it was 7.9. Patient's chemistries were unremarkable. Patient's D-dimer was elevated 3.65 secondary to this, patient did receive a CTA of the chest to rule out any pulmonary embolus. This showed no pulmonary embolus or infiltrate. Patient's troponin was negative. Patient's urinalysis was positive for infection. This will be sent for culture. Patient be treated with Keflex. At this time, there is no evidence of any sepsis, there is no evidence of any pyelonephritis. Patient will be placed on Keflex 3 times a day for 7 days. She instructed return for any worsening symptoms. All questions answered, stable for discharge. <Dr. Shahab Thayer, DO - Last Filed: 04/06/23 01:57> [facility] Narrative Medical decision making narrative: Patient appears to be in no obvious respiratory distress, vital signs are stable. Presenting to the emergency department for hyperventilation, weakness. Patient differential diagnosis includes CVA, anemia, orthostatic hypotension, viral-like illness, cardiac disease. Patient received a full cardiac workup. Patient received IV fluids. laboratory values will be obtained concerning for a ny anemia, electrolyte abnormality, renal function, any elevation in troponin. Patient's CBC was unremarkable, patient's hemoglobin is 11.1, this is an improvement from March 17 of this year when it was 7.9. Patient's chemistries were unremarkable. Patient's D-dimer was elevated 3.65 secondary to this, patient did receive a CTA of the chest to rule out any pulmonary embolus. This showed no pulmonary embolus or infiltrate. Patient's troponin was negative. Patient's urinalysis was positive for infection. This will be sent for culture. Patient be treated with Keflex. At this time, there is no evidence of any sepsis, there is no evidence of any pyelonephritis. Patient will be placed on Keflex 3 times a day for 7 days. She instructed return for any worsening symptoms. All questions answered, stable for discharge. This patient was seen with a PA/COAT REPAIR INSPECTOR Individually assessed they patient including history and physical. I have reviewed everything on the chart that is available and agree with the documentation provided by the PA/COAT REPAIR INSPECTOR including discussion about the assessment, treatment plan, discussion, and return precautions. Patient presented with multiple symptoms. Her workup ultimately was pretty reassuring. All we found today here was a UTI. On reevaluation the patient is comfortable. She does not appear to be anxious. We discussed all of her lab work findings and she feels okay to go home. Her also feels the same. She will be started on antibiotics. Return precautions were discussed. Lab Data Labs: Laboratory Results - last 24 hr 04/04/23 04/04/23 04/04/23 11:20 14:18 14:20 WBC 4.7 RBC 3.53 L Hgb 11.1 L Hct 34.9 L MCV 98.9 MCH 31.4 MCHC 31.8 L RDW Std Deviation 47.1 H RDW Coeff of Clarisse 13.1 Plt Count 406 MPV 9.6 Immature Gran % (Auto) 0.200 Neut % (Auto) 42.6 L Lymph % (Auto) 42.8 H [place] % (Auto) 12.1 H Eos % (Auto) 1.5 Baso % (Auto) 0.8 Absolute Neuts (auto) 2.0 Absolute Lymphs (auto) 2.02 Nucleated RBC % 0 D-Dimer Quant (PE/DVT) 3.65 H* Sodium 138 Potassium 4.0 Chloride 108 H Carbon Dioxide 23.0 Anion Gap 7 BUN 21 H Creatinine 0.82 Estim Creat Clear Calc 57.96 Est GFR (MDRD) Af Amer 87 Est GFR (MDRD) Non-Af 72 BUN/Creatinine Ratio 25.6 H Glucose 99 Calcium 9.4 Troponin I High Sens 7 7 Urine Color Yellow Urine Clarity Sl. Cloudy Urine pH 7.0 Ur Specific [place] 1.010 Urine Protein Negative Urine Glucose (UA) Normal Urine Ketones Negative Urine Occult Blood Negative Urine Nitrite Positive H Urine Bilirubin Negative Urine Urobilinogen Normal Ur Leukocyte Esterase 500 H Urine RBC 0-5 SEEN Urine WBC 5-10 SEEN Ur Squamous Epith Cells 0-5 SEEN Urine Bacteria 3+ Urine Mucus 0 SEEN Radiography Diagnostic Testing: Clinical Impression(s) from Imaging Studies Chest CTA 04/04/23 11:47 IMPRESSION: No demonstrated pulmonary embolism or arterial dissection. Minimal lower lobe dependent atelectasis. Atherosclerosis. Evidence of prior granulomatous disease. Electronically Signed: Emma Armenta MD at 13:44 EST , Chest X-Ray 04/04/23 11:57 IMPRESSION: No radiographic evidence of acute cardiopulmonary disease. Electronically Signed: Emma Armenta MD at 12:36 EST , Discharge Plan Triage Chief Complaint: Anxiety ED Midlevel Provider: Rafa Bernabe ED Provider: Shahab Thayer Dx/Rx/DC Orders Clinical Impression: UTI (urinary tract infection), Near syncope, Weakness Instructions: Urinary Tract Infections in Women, Dizziness Fainting Causes Prescriptions: New cephalexin 500 mg capsule 500 mg PO Q8H 7 Days Qty: 21 0RF No Action cholecalciferol (vitamin D3) 2,000 unit capsule 2,000 unit PO QHS rosuvastatin 5 mg tablet 5 mg PO DAILY omeprazole 20 mg capsule,delayed release(DR/EC) 20 mg PO DAILY hydroxyzine HCl 50 mg tablet 100 mg PO QHS fexofenadine-pseudoephedrine [Sarah-D 12 Hour] 60-120 mg tablet extended release 12 hr 1 tab PO DAILY duloxetine [Cymbalta] 20 mg capsule,delayed release(DR/EC) 20 mg PO DAILY Hold Instructions: PATIENT STOPPED ON OWN polyethylene glycol 3350 17 gram Powder In Packet 17 g PO BID PRN (Reason: Constipation) Qty: 14 0RF acetaminophen 500 mg Tablet 1,000 mg PO Q8 Qty: 100 0RF oxycodone 5 mg Tablet 5 - 10 mg PO Q4H PRN PRN (Reason: Pain Score 4-10) 7 Days Qty: 60 0RF Eliquis 2.5 mg tablet 2.5 mg PO BID Qty: 42 0RF docusate sodium [Colace] 100 mg capsule 100 mg PO BID PRN (Reason: constipation) Qty: 60 0RF sertraline 25 mg tablet 25 mg PO DAILY Primary Care Provider: Paige Saldana Referrals: Paige Saldana, COAT REPAIR INSPECTOR-C [Primary Care Provider] - Activity Restrictions/Additional Instructions: You need to continue to take the antibiotics until finished. Maintain hydration. Disposition Disposition: Home, Self Care Discharge Date/Time: 04/04/23 15:33
[2023-04-04 11:38] LABS: Absolute Lymphocyte Count 2.02 X10^3/uL (0.83-4.51); Basophil# 0.04 X10^3/uL; Basophil% 0.8 % (0-1); Eosinophil# 0.07 X10^3/uL; Eosinophils% 1.5 % (0-5); Hematocrit 34.9 % (37-47); Hemoglobin 11.1 g/dL (12.0-15.0); Lymphocyte # 2.02 X10^3/ul (0.83-4.51); Lymphocyte % 42.8 % (19-41); Mean Corp Hgb Conc 31.8 g/dL (32-36); Mean Corpuscular Hgb 31.4 pg (27.0-32.0); Mean Corpuscular Volume 98.9 fL (81-99); Mean Platelet Vol. 9.6 fl (6.2-12.0); Monocyte# 0.57 X10^3/uL; Monocyte% 12.1 % (0-10); NRBC Flagged by Analyzer 0 % (0-5); Neutrophil # 2.01 X10^3/uL (2.7-7.7); Neutrophil % 42.6 % (47-70); Platelet Count 406 K/mm3 (150-450); RBC Distribution Width CV 13.1 % (11.6-14.6); RBC Distribution Width SD 47.1 fl (35.1-43.9); Red Blood Count 3.53 M/mm3 (4.2-5.4); White Blood Count 4.7 K/mm3 (4.4-11.0)
[2023-04-04 11:45] VITALS: O2SAT 96
[2023-04-04 11:46] LABS: D-Dimer Quantitative (DVT/PE) 3.65 FEU/ug/m (0.27-0.49)
[2023-04-04] MEDS: 0.9% Normal Saline (1000mL) 1,000 ML 1000 ML IV (11:46)
--- NOTE | 2023-04-04 11:47 | CT_ITS ---
STUDY: CTA CHEST REASON FOR EXAM: Female, 77 years old. Elevated dimer RADIATION DOSAGE (If Supplied By Facility): CTDIvol = ( 6.27 ) mGy, DLP = ( 236.40 ) mGycm TECHNIQUE: The examination was performed with the intravenous administration of IV 100mL Isovue-370. Post-processing of the angiographic images was performed, with multiplanar reformation and 3D reconstruction. Individualized dose optimization techniques were used for this CT. COMPARISON: No relevant prior comparison study available FINDINGS: Normal enhancement of the main pulmonary artery and right and left pulmonary arteries. Normal enhancement of the bilateral peripheral pulmonary arteries. There is no demonstrated pulmonary embolism. There is atherosclerotic calcification of the aortic arch. There is no demonstrated aortic dissection. Normal heart and pericardium. There are no coronary artery calcifications visualized. There is a partially calcified mediastinal lymph node. Normal hilar regions. Normal visualized trachea and bronchi. There is minimal dependent atelectasis within the lower lobes. There are right lower lobe granulomas. Normal chest wall structures. Normal osseous structures. The limited images of the upper abdomen demonstrates hepatic and splenic granulomas. CT/CTA Chest W/WO Contrast IMPRESSION: No demonstrated pulmonary embolism or arterial dissection. Minimal lower lobe dependent atelectasis. Atherosclerosis. Evidence of prior granulomatous disease. Electronically Signed: Emma Armenta MD at 13:44 EST ,
[2023-04-04 11:49] LABS: Anion Gap 7 (5-15); BUN 21 mg/dL (7-18); BUN/Creat Ratio 25.6 RATIO (10-20); Calcium,Total 9.4 mg/dL (8.5-10.1); Chloride 108 mmol/L (98-107); Creatinine, Serum 0.82 mg/dL (0.55-1.02); EST Glomerular Filtration Rate 72 mL/min (>60); Est Glom Filt Rate - Afr Amer 87 mL/min (>60); Estimated Creatinine Clearance 57.96 ml/min; Glucose 99 mg/dL (74-106); Sodium Level 138 mmol/L (136-145); Troponin-I HS (w/2H Reflex) 7 pg/mL (3.0-54.0)
--- NOTE | 2023-04-04 11:57 | RAD_ITS ---
INDICATION: chest pain EXAMINATION/TECHNIQUE: X-RAY - XR Chest 1 View COMPARISON: May 11, 2022 FINDINGS: LINES/DEVICES: None. LUNGS: No consolidation, edema or effusion. No pneumothorax. MEDIASTINUM AND CARDIOVASCULAR STRUCTURES: Cardiac silhouette not enlarged. Central airways and mediastinal contour are unremarkable. BONES AND SOFT TISSUES: Unremarkable. RAD/Chest 1 View (Portable) IMPRESSION: No radiographic evidence of acute cardiopulmonary disease. Electronically Signed: Emma Armenta MD at 12:36 EST ,
[2023-04-04] MEDS: DiphenhydrAMINE 50 MG/ML Syringe IV (12:11)
[2023-04-04 13:27] LABS: Reflex Troponin-HS? (from REC) Y
[2023-04-04 14:27] VITALS: BP 139/64; PULSE 88; RESP 16; O2SAT 96
[2023-04-04 14:33] LABS: Mucous, Urine 0 SEEN /hpf (<or=2+)
[2023-04-04 14:40] LABS: Color, Urine Yellow (Yellow); Glucose, Dipstick Normal (Normal); Ketone-Dipstick Negative (Negative); Leukocyte Esterase-Dipstick 500 /ul (Negative); Nitrite-Dipstick Positive (Negative); Occult Blood-Urine Negative /ul (Negative); Protein-Dipstick Negative (Negative); Urine Bilirubin Dipstick Negative (Negative); Urine Clarity Sl. Cloudy (Clear); Urine Urobilinogen Normal (Normal)
[2023-04-04 14:53] LABS: Bacteria 3+ /hpf (None Seen); Red Blood Cells-Urine 0-5 SEEN /hpf (0-5); Squamous Epithelial Cells - UA 0-5 SEEN /hpf (5-10); White Blood Cells 5-10 SEEN /hpf (0-5)
[2023-04-04 14:57] LABS: Troponin-I HS 7 pg/mL (3.0-54.0)
[2023-04-04] MEDS: Cephalexin 250 MG Capsule 500 MG PO (15:25)
[2023-04-04 15:29] VITALS: BP 136/72
== END 2023-04-04 15:33 | disposition home or self-care (01) ==
PROVIDERS: Nurse Practitioner; Emergency Provider Student in an Organized Health Care Education/Training Program; PCP Nurse Practitioner Family; Visit Provider Student in an Organized Health Care Education/Training Program
DX: N39.0 Urinary tract infection, site not specified (principal); F41.9 Anxiety disorder, unspecified; R53.1 Weakness; R55 Syncope and collapse; E78.00 Pure hypercholesterolemia, unspecified; Z96.642 Presence of left artificial hip joint; J45.909 Unspecified asthma, uncomplicated; F32.A Depression, unspecified
CPT/HCPCS: 71045; 71275; 80048; 81001; 84484; 85025; 85379; 87428; 93005; 96361; 96374; 96375; 99285; J7030; Q9967; A4216

== ENCOUNTER 2023-04-27 12:30 | Outpatient (RCR) | payer MEDICARE, SELFPAY ==
--- NOTE | 2023-03-20 08:24 | HP.PTEVAL ---
Patient's Visit Information Visit Information Visit Information: IHSAN WOODARD is a 77 year old F referred to Physical Therapy by Dr. Michael Martin DO with a diagnosis of S/p L ADRIAN , DJD [facility] Date of Evaluation: 03/20/23 Physical Therapist: Davion Saldana, DPT, OCS, CSCS Visit Plan Frequency: 3x /Week Duration: 4-6 Weeks Plan: 3x/week for 4-6 weeks for 1. ROM, stretching and strength L hip 2. Gait and stair progression 3. ice and scar massage as needed Pt to obey post hip precaution Subjective Subjective: 03/14/23 L ADRIAN. after months of pain. Now is worse early in the day and better later in the day. Was in hospital until Monday and tried to talk her into TCU but did not want it. Pain this am is L posterior hip improving but sore. 11/17 and has to keep moving to try to get comfortable. Incision is posterior. Slept at home poorly this past weekend. Can't lie on left side. R side is uncomfortable. HEP: AP. QS, HS, GS. SLR a little bit. Precautions, no crossing legs, no bending FW to reach. Uses wh walker now and prior for 3 months due to pain. Lives in one story condo with one step into house. Lives with hubby and two puppies. Needed help to dress slightly, bathroom I, no showers until today. Walk in [id number] and chair. Not employed, Hobbies include TV. No regular exercises. Walks dogs when she is able. Pain L hip: Pain Intensity (Out of 10): 2 Pain Intensity Range: 2 and 3 Objective Objective: 20 # flexion adn 35# ext sitting L hip TUG 28 seconds 80 degree flexion and 0 ext AROM. Incision is posterior and bandaged, bruised but no signs of infection or excessive redness. Walking with wh walker with heel srike and toe off and knee bending decently, march in place but avoids bending L knee. stands without AD I, ec slightly wobbly and 10 seconds. sits with weight off L hip. appropriately obeys precautions with tranfition in bed, can SLR gently on L, uses R LE to help L in transitions. Balance/Special Test Scores WOMAC Total Score: 83 WOMAC Percentatge: 13.5500 Goals Goal 1:: ST: transition bed and chair with UE assisst but no LE asist and good lift of L LE Goal Time Frame: 2-4 Weeks Goal 2:: Pain 0-2/10 at allt imes and comfortable at rest Goal Time Frame: 2-4 Weeks Goal 3:: Sleep without waking due to pain Goal Time Frame: 2-4 Weeks Goal 4:: walk with LRD community without pain Goal Time Frame: 4-6 Weeks Goal 5:: steps reciprocally with one rail Goal Time Frame: 4-6 Weeks Goal 6:: Pt feel 80% back to normal activity Goal Time Frame: 4-6 Weeks Rehabilitation Potential Physical Therapy Diagnosis: weakness and ROM difficulties s/p L hip ADRIAN Rehabilitation Potential: Good Anticipated Interventions Patient/Client Instruction: Educate patient on: Condition and Plan of Care For the Purpose of:: To decrease pain, To increase ROM, To improve nutrient delivery to tissue, To increase tolerance to activity/condition/position, To improve ability of physical actions for home/community/work/leisure and To improve gait and locomotor functions Therapeutic Exercise to Include: Strength training, Postural training, Flexibilty training, Passive ROM and Active ROM For the Purpose of:: To decrease pain, To decrease swelling/inflammation, To improve nutrient delivery to tissue, To improve muscle performance and motor function and To increase tolerance to activity/condition/position Manual Therapy Techniques to Include: Passive ROM For the Purpose of:: To decrease pain, To decrease swelling/inflammation, To increase ROM and To improve nutrient delivery to tissue Cryotherapy (ice pack, ice massage): Yes For the Purpose of:: To decrease pain and To decrease swelling/inflammation Text: Thank you for the opportunity to evaluate your patient. For Medicare and Medicare HMO plans, please review the plan of care and approve it. It will need to be FAXED BACK to us at [phone] for Medicare purposes. For Medicare only, by signing this I certify the plan of care. Please let me know if there are questions or concerns regarding this plan of care. Physician Signature: Date:
--- NOTE | 2023-05-08 09:26 | HP.PTREVAL ---
Re-Evaluation Intro: Dr. 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 Please see the progress note below for an update on the physical therapy plan of care! Subjective Subjective: Pt reports having a UTI and multiple episodes of passing out which prevented her from being able to come to PT for a period of time. Pt is now doing much better and has been keeping up with her exercises. She was able to go to the grocery store a few times with her spouse and walk around, but did have some soreness/fatigue afterwards. Pt still has some pain/discomfort in L posterolateral glute region near incision and has occasional pulling. Objective Objective/Function: Pt amb. with slight antalgic gait and decreased stance time on LLE, cautious gait. Pt achieved approx. 80 deg hip flexion but had pain at end range. When demonstrating HEP, pt had lack of movement control and multiple compensations to avoid pain and use of glutes with standing ex. Pain with hooklying ABD, no issues with ADD. Quad set had glute and hip flexor involvement, unable to maintain contraction with SLR. Generalized weakness of L hip/LE. Plan Plan Plan: 1) Improve quad and glute/hip strength (begin low level and review HEP) 2) Decrease soft tissue limitations in L hip/LE (HEP: standing alternating marches, standing hip ABD, standing hamstring curls, standing hip ext, seated alternating marches, seated hamstring stretch, quad set) Balance/Gait/Functional tests Balance/Special Test Scores WOMAC Total Score: 83 WOMAC Percentage: 13.5500 Goals Goals Goal 1:: Pt will demonstrate proper form with HEP Goal Time Frame: 2 Weeks Goal Progress: Progressing Goal 2:: Pain 0-2/10 at all times and comfortable at rest Goal Time Frame: 2-4 Weeks Goal Progress: Progressing Goal 3:: Sleep without waking due to pain Goal Time Frame: 2-4 Weeks Goal Progress: Goal Met Goal 4:: walk with normalized gait pattern for 300+ ft Goal Time Frame: 4-6 Weeks Goal Progress: Progressing Goal 5:: steps reciprocally with one rail Goal Time Frame: 4-6 Weeks Goal Progress: Progressing Goal 6:: Pt feel 80% back to normal activity Goal Time Frame: 4-6 Weeks Goal Progress: Progressing Anticipated Interventions Anticipated Interventions Patient/Client Instruction: Educate patient on: Condition and Plan of Care For the Purpose of:: To decrease pain, To increase ROM, To improve nutrient delivery to tissue, To increase tolerance to activity/condition/position, To improve ability of physical actions for home/community/work/leisure and To improve gait and locomotor functions Therapeutic Exercise to Include: Strength training, Postural training, Flexibilty training, Passive ROM and Active ROM For the Purpose of:: To decrease pain, To decrease swelling/inflammation, To improve nutrient delivery to tissue, To improve muscle performance and motor function and To increase tolerance to activity/condition/position Manual Therapy Techniques to Include: Passive ROM For the Purpose of:: To decrease pain, To decrease swelling/inflammation, To increase ROM and To improve nutrient delivery to tissue Cryotherapy (ice pack, ice massage): Yes For the Purpose of:: To decrease pain and To decrease swelling/inflammation Re-Evaluation Ending Re-evaluation ending: Please do not hesitate to contact me at [phone] by phone or if you have questions or concerns regarding this new plan of care! Sincerely, Donnell Sanchez DPT
--- NOTE | 2023-06-26 09:58 | HP.PTDCNRP_ITS ---
Patient Information Patient Information: IHSAN WOODARD was seen in my office for initial evaluation on 03/20/23. The following Plan of Care was established for this patient: POC Established Initial Frequency: 3x /Week Initial Duration: 4-6 Weeks Anticipated Interventions Patient/Client Instruction: Educate patient on: Condition and Plan of Care For the Purpose of:: To decrease pain, To increase ROM, To improve nutrient delivery to tissue, To increase tolerance to activity/condition/position, To improve ability of physical actions for home/community/work/leisure and To improve gait and locomotor functions Therapeutic Exercise to Include: Strength training, Postural training, Flexibilty training, Passive ROM and Active ROM For the Purpose of:: To decrease pain, To decrease swelling/inflammation, To improve nutrient delivery to tissue, To improve muscle performance and motor function and To increase tolerance to activity/condition/position Manual Therapy Techniques to Include: Passive ROM For the Purpose of:: To decrease pain, To decrease swelling/inflammation, To increase ROM and To improve nutrient delivery to tissue Cryotherapy (ice pack, ice massage): Yes For the Purpose of:: To decrease pain and To decrease swelling/inflammation Last Seen Last Seen: This patient was last seen in our office 04/27/23. Pertinent comments regarding their Physical therapy will appear below: Pt seen 3 visits of POC but did not schedule or attend any further visits. At this point, it has been over 2 months and I will discontinue from PT due to non attendance. At this point I will be discontinuing this patient from physical therapy. I would be happy to see this patient again in the future if found appropriate by the physician. Thank you! Davion Saldana, DPT, OCS, CSCS Balance/Gait/Functional tests Balance/Special Test Scores WOMAC Total Score: 83 WOMAC Percentage: 13.5506
== END 2023-04-27 19:00 | disposition home or self-care (01) ==
LOC: PT 12:30
PROVIDERS: PCP Internal Medicine; Visit Provider Orthopaedic Surgery
DX: M16.12 Unilateral primary osteoarthritis, left hip (principal); Z96.642 Presence of left artificial hip joint
CPT/HCPCS: 97110; 97162; 97164

== ENCOUNTER → 2023-05-09 | Outpatient (CLI) | payer MEDICARE, SELFPAY ==
--- NOTE | 2023-05-09 13:36 | BI_ITS ---
MAMMOGRAPHY - BILATERAL SCREENING REASON FOR EXAM: Female, 77 years old. Routine annual screening examination. PERTINENT HISTORY: Mother with breast cancer. Aunts with breast cancer. Prior left ultrasound-guided breast biopsy. TECHNIQUE: Digital bilateral breast maria del carmen (3D mammographic acquisition) in the CC and MLO projections. 2-D mediolateral oblique (MLO) and craniocaudad (CC) views of both breasts were obtained. CAD: Full Field Digital Mammography with Computer Added Detection was performed. COMPARISON: Comparison is made with prior study dated April 23, 2021 and May 04, 2022. FINDINGS: Breast Composition: The breasts are heterogeneously dense, which may obscure small masses. There are no dominant masses or suspicious calcifications. A tissue clip marker is seen in the deep central lateral aspect of the left breast. Stable 5 mm x 6.1 mm well-defined nodule in the deep upper lateral aspect of the left breast. BI/SCRN MAMM (CAD)W/MARIA DEL CARMEN BILAT IMPRESSION: Stable bilateral screening mammogram. Yearly follow-up mammogram recommended. (A) ASSESSMENT CATEGORY: BIRADS Category 2: Benign. A letter regarding these results will be sent to the patient by the facility within 30 days. Approximately 10% of breast cancers are not detected by mammography. A normal mammogram should not delay biopsy of a clinically suspicious abnormality. [id number] Electronically Signed: Twin Mcgill MD at 14:42 EST ,
== END | disposition home or self-care (01) ==
LOC: OPBI 13:36
PROVIDERS: PCP Nurse Practitioner Family; Referring Provider Nurse Practitioner Family; Visit Provider Nurse Practitioner Family
DX: Z12.31 Encounter for screening mammogram for malignant neoplasm of breast (principal); Z80.3 Family history of malignant neoplasm of breast
CPT/HCPCS: 77063; 77067

== ENCOUNTER → 2023-12-07 | Outpatient (CLI) | payer MEDICARE, SELFPAY ==
[2023-12-07 17:33] LABS: Potassium 4.4 mmol/L (3.5-5.1)
== END | disposition home or self-care (01) ==
LOC: LAB 16:29
PROVIDERS: PCP Nurse Practitioner Family; Referring Provider Internal Medicine; Visit Provider Internal Medicine
DX: E78.5 Hyperlipidemia, unspecified (principal)
CPT/HCPCS: 36415; 84132

== ENCOUNTER → 2023-12-14 | Outpatient (CLI) | payer MEDICARE, SELFPAY | END | disposition home or self-care (01) | PROVIDERS: PCP Nurse Practitioner Family; Referring Provider Nurse Practitioner Family; Visit Provider Nurse Practitioner Family | DX: R55 Syncope and collapse (principal) | CPT/HCPCS: 93225; 93226 ==

== ENCOUNTER → 2023-12-21 | Outpatient (CLI) | payer MEDICARE, SELFPAY ==
--- NOTE | 2023-12-21 12:52 | CDU_ITS ---
Reason For Study: Dizziness Rt. Velocities/BP Lt. Velocities/BP Prox CCA 103.4/15.7 cm/sec. Prox CCA 110.7/19.4 cm/sec. Mid CCA 73.2/15.5 cm/sec. Mid CCA 85.3/17.1 cm/sec. Dist CCA 68.3/20.4 cm/sec. Dist CCA 85.3/20.4 cm/sec. Prox ICA 106.3/26.5 cm/sec. Prox ICA 66.6/21.5 cm/sec. Mid ICA 102.7/30.2 cm/sec. Mid ICA 101.0/33.4 cm/sec. Dist ICA 100.2/30.2 cm/sec. Dist ICA 116.2/17.5 cm/sec. Rt. ICA/CCA = 1.5. Lt. ICA/CCA = 1.4. Prox ECA 90.8/8.4 cm/sec. Prox ECA 116.2/17.5 cm/sec. Rt. Vert. 79.6/19.4 cm/sec. Lt. Vert. 63.9/13.8 cm/sec. Right Extracranial There is homogeneous, smooth atherosclerotic plaque noted in the right common carotid artery. There is heterogeneous, irregular atherosclerotic plaque noted in the right internal carotid artery. There is intimal thickening but no significant atherosclerotic plaque noted in the right external carotid artery. Antegrade flow is noted in the right vertebral artery. Left Extracranial There is homogeneous, smooth atherosclerotic plaque noted in the left common carotid artery. There is intimal thickening but no significant atherosclerotic plaque noted in the left internal carotid artery. There is intimal thickening but no significant atherosclerotic plaque noted in the left external carotid artery. Antegrade flow is noted in the left vertebral artery. Procedure Carotid Duplex [id number]. This is a Carotid Duplex examination using B-mode, color flow and specral Doppler. The exam was diagnostic. Exam performed in department. VL/Carotid Duplex Ultrasound Interpretation Summary Mild (<50%) stenosis right extracranial internal carotid. No significant athero sclerotic plaque or stenosis noted in the left internal carotid artery. Flow within the vertebral a rteries is antegrade bilaterally. Ordering Physician: Paige Saldana Referring Physician: Paige Saldana Performed By: Adithya De Oliveira RVT
== END | disposition home or self-care (01) ==
PROVIDERS: PCP Nurse Practitioner Family; Referring Provider Nurse Practitioner Family; Visit Provider Nurse Practitioner Family
DX: R42 Dizziness and giddiness (principal)
CPT/HCPCS: 93880

== ENCOUNTER 2023-12-24 11:01 | Emergency (ER) | payer MEDICARE, SELFPAY ==
[2023-12-24 11:03] VITALS: BP 115/63; PULSE 66; RESP 11; TEMP 36.4; O2SAT 93; BMI 28.3
[2023-12-24 11:08] VITALS: BP 115/63; PULSE 65; RESP 19; TEMP 36.4; O2SAT 93
--- NOTE | 2023-12-24 11:55 | CT_ITS ---
STUDY: CT Abdomen And Pelvis W/ Contrast Injection 12/24/2023 3:17 PM REASON FOR EXAM: Female, 78 years old. Abdominal pain abdominal pain Individualized dose optimization techniques were used for this CT. COMPARISON: None. TECHNIQUE: CT Abdomen And Pelvis W/ Contrast Injection IV 100mL Isovue-370 FINDINGS: The visualized portions of the heart are within normal limits. Mild intrahepatic ductal dilation. Normal gallbladder and extrahepatic biliary system. There are multiple benign calcified granulomata of the spleen. Normal pancreas. Common bile duct diameter is 5 mm. Normal bilateral adrenal glands. No acute findings of the right kidney. There are hypodensities in the left kidney. These are consistent for cysts. No follow up required. Focal wall thickening of the antrum of stomach. This can suggest a gastritis. Normal small intestine. Stool throughout the colon. There is non-visualization of the appendix. There are calcifications of the abdominal aorta. This is consistent for atherosclerotic disease. There is NO abdominal aortic aneurysm. Vascular workup can be obtained based on clinical correlation. Normal inferior vena cava. Subcentimeter mesenteric lymph nodes. Normal urinary bladder. There is absence of the uterus consistent with a prior hysterectomy. There is an umbilical hernia containing fat. There are diffuse degenerative changes of the visualized lumbar spine. Fusion cage and osseous fusion at L4-5. Metal hardware at L4-5. Total left hip arthroplasty. CT/Abdomen/Pelvis W IV Cont ONLY IMPRESSION: (NOT LISTED IN ORDER OF SIGNIFICANCE) Gastritis. Other findings as above. Electronically Signed: Derek Colindres MD at 15:20 EDT ,
--- NOTE | 2023-12-24 12:00 | EDS_ITS ---
HPI <DENNIS Guardado - Last Filed: 12/24/23 15:56> History of Present Illness Chief Complaint: General Illness Narrative Narrative: Patient is a 78-year-old female with history of hyperlipidemia, anxiety who presents to the emerged department for abdominal pain, nausea, vomiting, diaphoresis. Patient states that roughly 4 in the morning, she had severe pain to her lower abdomen, she ended up having diarrhea, felt sweaty and extremely weak after. Patient states she just feels washed out. Here with her and daughter. Patient denies any blood in her stool or vomit. Patient did have 1 episode of emesis. [facility] <DENNIS Guardado - Last Filed: 12/24/23 15:56> [facility] Medical History Abnormal mammogram of left breast Abnormal ultrasound of breast Acute bronchitis Acute pneumonia Anemia Anxiety Arthritis Asthma Back pain BiPAP (biphasic positive airway pressure) dependence Bladder disease Breast nodule Bronchitis Celiac disease Contact with or suspected exposure to other viral communicable disease Depression Depression Diarrhea Easy bruising Gastric reflux High cholesterol History of pain when walking Hypercholesteremia Leg cramps Migraine headache Nocturia more than twice per night Non-smoker GILBERT (obstructive sleep apnea) Sleep apnea Vertigo Vitamin D deficiency, unspecified Walker as ambulation aid Wears dentures Wears glasses Wears hearing aid Home Medications ?Medication ?Instructions ?Recorded ?Last Taken ?Type cholecalciferol (vitamin D3) 50 2,000 unit PO QHS SUPPLEMENT 09/27/17 03/13/23 History mcg (2,000 unit) capsule rosuvastatin 5 mg tablet 5 mg PO DAILY CHOLESTEROL 03/28/19 03/13/23 History fexofenadine 60 mg-pseudoephedrine 1 tab PO DAILY allergy symptoms 12/26/22 03/13/23 History ER 120 mg tablet,ext.release,12 hr (Sarah-D 12 Hour) hydroxyzine HCl 50 mg tablet 100 mg PO QHS ANXIETY 12/26/22 03/13/23 History omeprazole 20 mg capsule,delayed 20 mg PO DAILY GERD 12/26/22 03/14/23 06:15 History release acetaminophen 500 mg tablet 1,000 mg (2 x 500 mg) PO Q8 #100 03/16/23 Unknown Rx tabs apixaban 2.5 mg tablet (Eliquis) 2.5 mg PO BID #42 tabs 03/16/23 Unknown Rx docusate sodium 100 mg capsule 100 mg PO BID PRN constipation #60 03/16/23 Unknown Rx (Colace) caps oxycodone 5 mg tablet 5 - 10 mg (1 - 2 x 5 mg) PO Q4H 03/16/23 Unknown Rx PRN PRN Pain Score 4-10 7 days #60 tabs polyethylene glycol 3350 17 gram 17 g PO BID PRN Constipation #14 ea 03/16/23 Unknown Rx oral powder packet duloxetine 20 mg capsule,delayed 20 mg PO DAILY 03/29/23 Unknown History release (Cymbalta) cephalexin 500 mg capsule 500 mg PO Q8H 7 days #21 caps 04/04/23 Unknown Rx sertraline 25 mg tablet 25 mg PO DAILY 04/04/23 Unknown History ondansetron 4 mg disintegrating 4 mg PO Q8H PRN PRN Nausea #10 tabs 12/24/23 Unknown Rx tablet Allergy/AdvReac Type Severity Reaction Status Date / Time Iodinated Contrast Media Allergy Mild unsure Verified 12/24/23 11:13 Sulfa (Sulfonamide Allergy Unknown can use Verified 12/24/23 11:13 Antibiotics) externally,not internally,unknown reaction when baby codeine Allergy Hives Verified 12/24/23 11:13 gluten Allergy CELIAC'S Verified 12/24/23 11:13 DISEASE Family History Mother Cancer Breast cancer Father Suicide Brother Alcoholic Surgical History H/O bladder repair surgery H/O cataract extraction H/O hernia repair H/O: hysterectomy History of colonoscopy (~2017) Hx of breast biopsy S/P spinal surgery Social History Smoking Status: Never smoker alcohol intake: current alcohol intake frequency: holidays/special occasions only substance use type: does not use ROS <DENNIS Guardado - Last Filed: 12/24/23 15:56> ROS ED ROS Narrative Constitutional: Negative for fever, weight loss, weakness. Positive chills, diaphoresis Eyes: Negative for vision loss, vision change, double vision ENT: Negative for any sore throat, ear pain, congestion Cardiovascular: Negative for any chest pain, tightness, palpitations Respiratory: Negative for any cough, sputum production, hemoptysis, dyspnea, dyspnea on exertion, orthopnea Gastrointestinal: Negative for any constipation, blood in stool, blood in vomit. Positive for abdominal pain, nausea, vomiting, diarrhea : Negative for any urinary frequency, dysuria, retention, blood in urine Muscle skeletal: Negative for any neck pain, back pain Neurological: Negative for any headache, syncope, dizziness Skin: Negative for any rashes, itching, abrasions, lacerations Psychiatric: Negative for any depression, anxiety, stress, suicidal ideation, homicidal ideation Hematologic: Negative for any excessive bruising, easy bleeding EXAM <DENNIS Guardado - Last Filed: 12/24/23 15:56> Physical Exam Narrative Exam Narrative: Vital signs reviewed. Patient is alert and orient x 4, she does appear pale appearing. HEET: Head normocephalic atraumatic, TMs clear bilaterally. Posterior pharynx is clear, dry mucous membranes. Nares clear bilaterally. Neck: Supple with no lymphadenopathy or tenderness. No signs of meningismus. Cardiac: Regular rate and rhythm no murmurs gallops or rubs, equal peripheral pulses bilaterally. Respiratory: Lungs clear to auscultation bilaterally. No chest tenderness. Abdomen: Soft, nontender, nondistended. No abdominal bruit or pulsatile masses. No hepatosplenomegaly. Patient denied any significant pain, she states that whenever I do touch her stomach it feels sore. There is no peritoneal signs, active bowel sounds in all quadrants. Extremities: No peripheral edema, no signs of gross trauma or deformity. Active full range of motion of all extremities. Neuro: Cranial nerves II through XII intact, no focal neurological deficits. Skin: Clean dry and intact with no rash, purpura, petechiae, vesicles or pustules. Backs/flank: No CVA tenderness, no midline spinal tenderness, no deformity. Psych: Normal mood and affect. No SI, HI or acute psychosis. Const Vital Signs: 12/24/23 11:03 12/24/23 11:08 12/24/23 11:11 Temperature 97.5 F L 97.5 F L Temperature Source Oral Oral Pulse Rate 66 65 Pulse Rate [Lying] Pulse Rate [Sitting (for 1 minute prior to obtaining)] Pulse Rate [Standing (for 1 minute prior to obtaining)] Respiratory Rate 11 L 19 H Respiratory Effort Normal Non-Labored Respiratory Pattern Normal Blood Pressure 115/63 115/63 Blood Pressure [Lying] Blood Pressure [Sitting (for 1 minute prior to obtaining)] Blood Pressure [Standing (for 1 minute prior to obtaining)] Blood Pressure Mean 80 80 Blood Pressure Mean [Lying] Blood Pressure Mean [Sitting (for 1 minute prior to obtaining)] Blood Pressure Mean [Standing (for 1 minute prior to obtaining)] Pulse Ox 93 93 Oxygen Delivery Method Room Air Room Air 12/24/23 13:09 12/24/23 13:54 12/24/23 15:34 Temperature 98.5 F Temperature Source Oral Pulse Rate 69 87 Pulse Rate [Lying] 84 Pulse Rate [Sitting (for 1 minute prior to obtaining)] 82 Pulse Rate [Standing (for 1 minute prior to obtaining)] 83 Respiratory Rate 12 21 H Respiratory Effort Respiratory Pattern Blood Pressure 115/98 H 114/59 L Blood Pressure [Lying] 108/62 Blood Pressure [Sitting (for 1 minute prior to obtaining)] 119/61 Blood Pressure [Standing (for 1 minute prior to obtaining)] 122/67 H Blood Pressure Mean 103 77 Blood Pressure Mean [Lying] 77 Blood Pressure Mean [Sitting (for 1 minute prior to obtaining)] 80 Blood Pressure Mean [Standing (for 1 minute prior to obtaining)] 85 Pulse Ox 94 Oxygen Delivery Method Room Air Positive well nourished and well developed General Appearance ED: well developed <Dr. Javi Almazan, DO - Last Filed: 12/24/23 21:38> Physical Exam Const Vital Signs: 12/24/23 11:03 12/24/23 11:08 12/24/23 11:11 Temperature 97.5 F L 97.5 F L Temperature Source Oral Oral Pulse Rate 66 65 Pulse Rate [Lying] Pulse Rate [Sitting (for 1 minute prior to obtaining)] Pulse Rate [Standing (for 1 minute prior to obtaining)] Respiratory Rate 11 L 19 H Respiratory Effort Normal Non-Labored Respiratory Pattern Normal Blood Pressure 115/63 115/63 Blood Pressure [Lying] Blood Pressure [Sitting (for 1 minute prior to obtaining)] Blood Pressure [Standing (for 1 minute prior to obtaining)] Blood Pressure Mean 80 80 Blood Pressure Mean [Lying] Blood Pressure Mean [Sitting (for 1 minute prior to obtaining)] Blood Pressure Mean [Standing (for 1 minute prior to obtaining)] Pulse Ox 93 93 Oxygen Delivery Method Room Air Room Air 12/24/23 13:09 12/24/23 13:54 12/24/23 15:34 Temperature 98.5 F Temperature Source Oral Pulse Rate 69 87 Pulse Rate [Lying] 84 Pulse Rate [Sitting (for 1 minute prior to obtaining)] 82 Pulse Rate [Standing (for 1 minute prior to obtaining)] 83 Respiratory Rate 12 21 H Respiratory Effort Respiratory Pattern Blood Pressure 115/98 H 114/59 L Blood Pressure [Lying] 108/62 Blood Pressure [Sitting (for 1 minute prior to obtaining)] 119/61 Blood Pressure [Standing (for 1 minute prior to obtaining)] 122/67 H Blood Pressure Mean 103 77 Blood Pressure Mean [Lying] 77 Blood Pressure Mean [Sitting (for 1 minute prior to obtaining)] 80 Blood Pressure Mean [Standing (for 1 minute prior to obtaining)] 85 Pulse Ox 94 Oxygen Delivery Method Room Air [facility] <DENNIS Guardado - Last Filed: 12/24/23 15:56> [facility] Lab Data Labs: Laboratory Results - last 24 hr 12/24/23 12/24/23 11:13 13:30 WBC 10.4 RBC 4.00 L Hgb 12.2 Hct 38.8 MCV 97.0 MCH 30.5 MCHC 31.4 L RDW Std Deviation 46.5 H RDW Coeff of Clarisse 13.0 Plt Count 204 MPV 11.2 Immature Gran % (Auto) 0.200 Neut % (Auto) 81.2 H Lymph % (Auto) 10.2 L Antelope % (Auto) 6.7 Eos % (Auto) 1.4 Baso % (Auto) 0.3 Absolute Neuts (auto) 8.5 H Absolute Lymphs (auto) 1.06 Nucleated RBC % 0 Sodium 140 Potassium 4.2 Chloride 109 H Carbon Dioxide 24.0 Anion Gap 7 BUN 18 Creatinine 0.79 Estim Creat Clear Calc 65.97 Est GFR (MDRD) Af Amer 90 Est GFR (MDRD) Non-Af 74 BUN/Creatinine Ratio 22.7 H Glucose 90 Calcium 9.2 Total Bilirubin 0.70 AST 27 ALT 17 Alkaline Phosphatase 102 Troponin I High Sens 6 Total Protein 7.0 Albumin 3.8 Globulin 3.2 Albumin/Globulin Ratio 1.2 Lipase 21 TSH 3.870 H Urine Color Yellow Urine Clarity Sl. Cloudy Urine pH 7.0 Ur Specific [place] 1.010 Urine Protein 15 H Urine Glucose (UA) Normal Urine Ketones Negative Urine Occult Blood 10 H Urine Nitrite Negative Urine Bilirubin Negative Urine Urobilinogen Normal Ur Leukocyte Esterase 500 H Urine RBC 0 SEEN Urine WBC 10-25 SEEN Ur Squamous Epith Cells 0-5 SEEN Urine Bacteria 1+ Urine Mucus 0 SEEN Radiography Diagnostic Testing: Clinical Impression(s) from Imaging Studies Abdomen/Pelvis CT 12/24/23 11:55 IMPRESSION: (NOT LISTED IN ORDER OF SIGNIFICANCE) Gastritis. Other findings as above. Electronically Signed: Derek Colindres MD at 15:20 EDT , Chest X-Ray 12/24/23 13:40 IMPRESSION: There are no acute findings. Electronically Signed: Derek Colindres MD at 14:55 EDT , EKG Sinus rhythm: Attestation: I personally reviewed and interpreted this EKG as follows: Comments: Sinus rhythm, rate of 67 bpm, VT interval 142 ms, no acute ST elevation, no acute infarct noted. Treatment and Re-Evaluation :: Differential diagnosis includes however is not limited to: Colitis, diverticulitis, COVID-19, anemia, GI bleed, GI virus Patient appears to be in no obvious distress, vital signs are stable, nontoxic. Presenting to the emergency department secondary to nausea, vomiting, diarrhea, abdominal pain. The was concerned because she was diaphoretic. Patient was also having bowel movements and significant abdominal pain. Patient was seen a full abdominal workup including CT scan of the abdomen pelvis IV contrast, patient will need premedicated secondary to iodine allergy. Patient received IV fluids, Zofran. Abdominal labs will be ordered, urinalysis. Patient will receive an EKG, troponin, chest x-ray. All radiologic examinations were read, reviewed by the emergency department attending. From these reads, a plan of care will be put in place. Patient's laboratory values showed a normal CBC, patient's chemistries showed a chloride of 109, patient's remainder was unremarkable, troponin was negative, lipase was negative. Patient's urinalysis showed 1+ bacteria, 10-25 white blood cells, 5 and leukocytes, no nitrates. Patient is asymptomatic, this is be sent for culture. Patient's felt much better after IV fluids, IV Zofran. Patient's orthostatics were negative. Patient CT scan shows some gastritis, no other acute findings. I spoke with the patient, she is feeling better, more improved, able to take by mouth fluid. She feels well enough for discharge. She will follow-up outpatient. She will continue to maintain hydration. All questions answered stable for discharge. <Dr. Javi Almazan, DO - Last Filed: 12/24/23 21:38> [facility] Narrative Medical decision making narrative: I have personally performed a face to face assessment of the patient and have reviewed the AB Note. I performed a substantive portion of the visit including all aspects of the following. My mendenhall findings include: History is [patient presents to the emergency department for main complaint of near syncopal episode. Patient states that she had gotten up each and went to the kitchen counter and started peeling the peach and then started feeling lightheaded and sweaty and feeling like she was going to pass out. She just mated to a chair and sat down and did not pass out. She states she woke up this morning and had 3 episodes of watery stool and vomited once. She tells me she has not been feeling well for about 6 weeks has been having episodes of sweating and lightheadedness. She denies any blood in her stool or black tarry stool. Patient also had some lower abdomen pain this morning.] Exam is [HEENT-PERRLA, EOMI. Cranial nerves II through XII grossly intact. TMs clear. Mucous membranes moist. No adenopathy. Cardiovascular-regular rate and rhythm without murmur or ectopy Lungs-clear to auscultation, chest wall stable without crepitus or subcu emphysema Abdomen-normoactive bowel sounds, soft. Patient has mild diffuse tenderness over the suprapubic region and left lower quadrant with some guarding. There is no rebound, rigidity, or pineal signs. Extremities-intact ?4, normal range of motion, normal pulses, atraumatic] Medical Decison Making [patient presents with complaint of not feeling well for more than 6 weeks. She had some watery stools this morning and began feeling sweaty and lightheaded. Concern for vasovagal episode. In the differential would be cardiac dysrhythmia or coronary artery disease versus viral syndrome. IV line established. CBC with differential obtained showed a white count of 10.4 with hemoglobin of 12.2 and platelet count of of 204. Chemistries unremarkable. LFTs unremarkable. TSH slightly elevated 3.8. Urinalysis with 500 cassette esterase and +1 bacteria but only 10-25 WBCs and she is asymptomatic. I did send off a urine culture. Chest x-ray obtained unremarkable. CT scan of the abdomen pelvis unremarkable. EKG obtained showed a sinus rhythm with ventricular rate of [address] segment changes.] Orthostatic vital signs unremarkable. On repeat examination patient is feeling well. Suspect likely vasovagal episode. Also suspect possibility of a viral gastroenteritis developing. Advised patient on pushing fluids and follow-up with primary care physician within next 3 to 5 days Other additions or changes: [None] Lab Data Attestation: I reviewed the patient's lab results. Labs: Laboratory Results - last 24 hr 12/24/23 12/24/23 11:13 13:30 WBC 10.4 RBC 4.00 L Hgb 12.2 Hct 38.8 MCV 97.0 MCH 30.5 MCHC 31.4 L RDW Std Deviation 46.5 H RDW Coeff of Clarisse 13.0 Plt Count 204 MPV 11.2 Immature Gran % (Auto) 0.200 Neut % (Auto) 81.2 H Lymph % (Auto) 10.2 L [place]elope % (Auto) 6.7 Eos % (Auto) 1.4 Baso % (Auto) 0.3 Absolute Neuts (auto) 8.5 H Absolute Lymphs (auto) 1.06 Nucleated RBC % 0 Sodium 140 Potassium 4.2 Chloride 109 H Carbon Dioxide 24.0 Anion Gap 7 BUN 18 Creatinine 0.79 Estim Creat Clear Calc 65.97 Est GFR (MDRD) Af Amer 90 Est GFR (MDRD) Non-Af 74 BUN/Creatinine Ratio 22.7 H Glucose 90 Calcium 9.2 Total Bilirubin 0.70 AST 27 ALT 17 Alkaline Phosphatase 102 Troponin I High Sens 6 Total Protein 7.0 Albumin 3.8 Globulin 3.2 Albumin/Globulin Ratio 1.2 Lipase 21 TSH 3.870 H Urine Color Yellow Urine Clarity Sl. Cloudy Urine pH 7.0 Ur Specific [place] 1.010 Urine Protein 15 H Urine Glucose (UA) Normal Urine Ketones Negative Urine Occult Blood 10 H Urine Nitrite Negative Urine Bilirubin Negative Urine Urobilinogen Normal Ur Leukocyte Esterase 500 H Urine RBC 0 SEEN Urine WBC 10-25 SEEN Ur Squamous Epith Cells 0-5 SEEN Urine Bacteria 1+ Urine Mucus 0 SEEN Radiography Diagnostic Testing: Clinical Impression(s) from Imaging Studies Abdomen/Pelvis CT 12/24/23 11:55 IMPRESSION: (NOT LISTED IN ORDER OF SIGNIFICANCE) Gastritis. Other findings as above. Electronically Signed: Derek Colindres MD at 15:20 EDT , Chest X-Ray 12/24/23 13:40 IMPRESSION: There are no acute findings. Electronically Signed: Derek Colindres MD at 14:55 EDT , 1 view chest x-ray obtained interpreted by myself as no evidence of infiltrate or pneumothorax or acute disease process. Radiology in agreement Discharge Plan Triage Chief Complaint: General Illness ED Midlevel Provider: Rafa Bernabe ED Provider: Javi Almazan Dx/Rx/DC Orders Clinical Impression: Vaso-vagal reaction, Gastritis Instructions: ED Gastritis (Adult), ED Fainting, Vagal Reaction Prescriptions: New ondansetron 4 mg tablet,disintegrating 4 mg PO Q8H PRN PRN (Reason: Nausea) Qty: 10 0RF No Action cholecalciferol (vitamin D3) 2,000 unit capsule 2,000 unit PO QHS rosuvastatin 5 mg tablet 5 mg PO DAILY omeprazole 20 mg capsule,delayed release(DR/EC) 20 mg PO DAILY hydroxyzine HCl 50 mg tablet 100 mg PO QHS fexofenadine-pseudoephedrine [Sarah-D 12 Hour] 60-120 mg tablet extended release 12 hr 1 tab PO DAILY duloxetine [Cymbalta] 20 mg capsule,delayed release(DR/EC) 20 mg PO DAILY polyethylene glycol 3350 17 gram Powder In Packet 17 g PO BID PRN (Reason: Constipation) Qty: 14 0RF acetaminophen 500 mg Tablet 1,000 mg PO Q8 Qty: 100 0RF oxycodone 5 mg Tablet 5 - 10 mg PO Q4H PRN PRN (Reason: Pain Score 4-10) 7 Days Qty: 60 0RF Eliquis 2.5 mg tablet 2.5 mg PO BID Qty: 42 0RF docusate sodium [Colace] 100 mg capsule 100 mg PO BID PRN (Reason: constipation) Qty: 60 0RF sertraline 25 mg tablet 25 mg PO DAILY cephalexin 500 mg capsule 500 mg PO Q8H 7 Days Qty: 21 0RF Primary Care Provider: Paige Saldana Referrals: Paige Saldana, [employer]ICAL INS[employer]ANCE CLAIMS PROCESSOR-C [Primary Care Provider] - Activity Restrictions/Additional Instructions: Maintain hydration, return for any worsening symptoms. Print Language: [place] Disposition Disposition: Home, Self Care Discharge Date/Time: 12/24/23 16:36
[2023-12-24] MEDS: DiphenhydrAMINE 50 MG/ML Syringe 25 MG IV (12:01)
[2023-12-24] MEDS: MethylPREDNISolone 125 MG/2 ML Vial IV (12:01)
[2023-12-24] MEDS: Ondansetron 4 MG/2 ML Vial IV (12:01)
[2023-12-24] MEDS: 0.9% Normal Saline (1000mL) 1,000 ML 999 ML IV (12:01)
[2023-12-24 12:23] LABS: Absolute Lymphocyte Count 1.06 X10^3/uL (0.83-4.51); Absolute Neutrophil Count 8.5 X10^3/uL (2.0-7.7); Basophil# 0.03 X10^3/uL; Basophil% 0.3 % (0-1); Eosinophil# 0.15 X10^3/uL; Eosinophils% 1.4 % (0-5); Hematocrit 38.8 % (37-47); Hemoglobin 12.2 g/dL (12.0-15.0); Lymphocyte # 1.06 X10^3/ul (0.83-4.51); Lymphocyte % 10.2 % (19-41); Mean Corp Hgb Conc 31.4 g/dL (32-36); Mean Corpuscular Hgb 30.5 pg (27.0-32.0); Mean Platelet Vol. 11.2 fl (6.2-12.0); Monocyte% 6.7 % (0-10); NRBC Flagged by Analyzer 0 % (0-5); Neutrophil # 8.45 X10^3/uL (2.7-7.7); Neutrophil % 81.2 % (47-70); Platelet Count 204 K/mm3 (150-450); RBC Distribution Width SD 46.5 fl (35.1-43.9); White Blood Count 10.4 K/mm3 (4.4-11.0)
[2023-12-24 12:46] LABS: ALB/GLOB Ratio 1.2 RATIO (0.9-2.4); AST(SGOT) 27 U/L (15-37); Alanine Aminotransfer ALT/SGPT 17 U/L (13-56); Albumin, Serum 3.8 g/dL (3.2-5.0); Alkaline Phosphatase 102 U/L (45-117); Anion Gap 7 (5-15); BUN 18 mg/dL (7-18); BUN/Creat Ratio 22.7 RATIO (10-20); Calcium,Total 9.2 mg/dL (8.5-10.1); Chloride 109 mmol/L (98-107); Creatinine, Serum 0.79 mg/dL (0.55-1.02); EST Glomerular Filtration Rate 74 mL/min (>60); Est Glom Filt Rate - Afr Amer 90 mL/min (>60); Estimated Creatinine Clearance 65.97 ml/min; Globulin 3.2 g/dL (2.2-4.2); Glucose 90 mg/dL (74-106); Lipase 21 U/L (13-75); Potassium 4.2 mmol/L (3.5-5.1); Sodium Level 140 mmol/L (136-145); Troponin-I HS 6 pg/mL (3.0-54.0)
[2023-12-24 13:09] VITALS: BP 115/98; PULSE 69; RESP 12
[2023-12-24 13:40] LABS: Mucous, Urine 0 SEEN /hpf (<or=2+); Red Blood Cells-Urine 0 SEEN /hpf (0-5)
--- NOTE | 2023-12-24 13:40 | RAD_ITS ---
STUDY: XR Chest 1 View 12/24/2023 1:38 PM REASON FOR EXAM: Female, 78 years old. cough COMPARISON: 04.04.23 TECHNIQUE: XR Chest 1 View FINDINGS: There is no demonstrated pleural abnormality. Normal heart size. Normal mediastinum. Normal rafaela. Prominent appearing increased interstitial lung markings. Normal visualized pulmonary arteries. There is atherosclerotic calcification of the aortic arch with tortuosity. There are diffuse degenerative changes of the visualized thoracic spine. There is degenerative osteoarthritis of the bilateral shoulders. There are no acute findings of the upper abdomen. RAD/Chest 1 View (Portable) IMPRESSION: There are no acute findings. Electronically Signed: Derek Colindres MD at 14:55 EDT ,
[2023-12-24 13:43] LABS: Color, Urine Yellow (Yellow); Glucose, Dipstick Normal (Normal); Ketone-Dipstick Negative (Negative); Leukocyte Esterase-Dipstick 500 /ul (Negative); Nitrite-Dipstick Negative (Negative); Occult Blood-Urine 10 /ul (Negative); Protein-Dipstick 15 mg/dl (Negative); Urine Bilirubin Dipstick Negative (Negative); Urine Clarity Sl. Cloudy (Clear); Urine Urobilinogen Normal (Normal)
[2023-12-24 13:54] VITALS: BP 114/59; PULSE 87; RESP 21; TEMP 36.9; O2SAT 94
[2023-12-24 14:01] LABS: Bacteria 1+ /hpf (None Seen); Squamous Epithelial Cells - UA 0-5 SEEN /hpf (5-10); White Blood Cells 10-25 SEEN /hpf (0-5)
[2023-12-24 15:34] VITALS: BP 108/62; BP 119/61; BP 122/67; PULSE 82; PULSE 83; PULSE 84
[2023-12-24] MEDS: Acetaminophen 500 MG Tablet 1000 MG PO (15:39)
== END 2023-12-24 16:36 | disposition home or self-care (01) ==
PROVIDERS: Nurse Practitioner; Emergency Provider Emergency Medicine; PCP Nurse Practitioner Family; Visit Provider Emergency Medicine
DX: R42 Dizziness and giddiness (principal); K29.70 Gastritis, unspecified, without bleeding; F41.9 Anxiety disorder, unspecified; R19.7 Diarrhea, unspecified; E78.00 Pure hypercholesterolemia, unspecified; J45.909 Unspecified asthma, uncomplicated; K21.9 Gastro-esophageal reflux disease without esophagitis; R11.2 Nausea with vomiting, unspecified; R10.30 Lower abdominal pain, unspecified
CPT/HCPCS: 71045; 74177; 80053; 81001; 83690; 84443; 84484; 85025; 87086; 87088; 87631; 93005; 96361; 96374; 96375; 99285; Q9967; A4216; J2405

== ENCOUNTER → 2024-01-08 | Outpatient (CLI) | payer MEDICARE, SELFPAY | END | disposition home or self-care (01) | PROVIDERS: PCP Nurse Practitioner Family; Referring Provider Nurse Practitioner Acute Care; Visit Provider Nurse Practitioner Acute Care | DX: G47.31 Primary central sleep apnea (principal) | CPT/HCPCS: 95811 ==

== ENCOUNTER 2024-01-22 11:00 | Outpatient (CLI) | payer MEDICARE, SELFPAY | END 2024-01-22 23:59 | disposition home or self-care (01) | LOC: SL 11:25 | PROVIDERS: PCP Nurse Practitioner Family; Visit Provider Nurse Practitioner Acute Care | DX: Z00.00 Encounter for general adult medical examination without abnormal findings (principal) ==

== ENCOUNTER → 2024-05-14 | Outpatient (CLI) | payer MEDICARE, SELFPAY ==
--- NOTE | 2024-05-14 10:18 | BI_ITS ---
PROCEDURE: SCRN MAMM (CAD)W/MARIA DEL CARMEN BILAT REASON FOR EXAM: F, Age 78 y/o, presents for annual screening mammography TECHNIQUE: Bilateral screening digital breast tomosynthesis with 2D and 3D images. Computer aided detection. COMPARISON: 05/09/2023. FINDINGS: There are scattered areas of fibroglandular density. No suspicious masses, areas of developing architectural distortion, or suspicious calcifications. BI/SCRN MAMM (CAD)W/MARIA DEL CARMEN BILAT IMPRESSION: There is no mammographic evidence of malignancy. BI-RADS 1: NEGATIVE. RECOMMEND ANNUAL MAMMOGRAPHIC SCREENING. Follow-up code: Routine Follow-up The patient will be notified of the results by letter. Reading Location: [id number]
--- NOTE | 2024-05-14 10:24 | BD_ITS ---
PROCEDURE: DEXA BONE DENSITY STUDY REASON FOR EXAM: F, age 78 y/o . Patient is postmenopausal.. TECHNIQUE: DEXA scan of lumbar spine and right hip COMPARISON: Comparison is made with prior study dated May 04, 2022. FINDINGS: Lumbar Spine (L1-L4): g/cm2 (0.834)/T-score (-1.7)/Z-score (0.9) findings are suggestive of osteopenia with a moderate fracture risk. Right Femur Total: g/cm2 (0.683)/T-score (-2.1)/Z-score (-0.1) Right Femoral Neck: g/cm2 (0.605)/T-score (-2.2)/Z-score (0.0) The T-Scores on the most recent prior examination were: Lumbar Spine (L1-L4): There has been no change of bone density since the previous examination. Right Femur Total: Loss of 4.4%. BD/Dexa Bone Density Study IMPRESSION: OSTEOPENIA.. High fracture risk. Reading Location: [place] [id number]
== END | disposition home or self-care (01) ==
PROVIDERS: PCP Nurse Practitioner Family; Referring Provider Nurse Practitioner Family; Visit Provider Nurse Practitioner Family
DX: Z12.31 Encounter for screening mammogram for malignant neoplasm of breast (principal); Z78.0 Asymptomatic menopausal state
CPT/HCPCS: 77063; 77067; 77080

== ENCOUNTER → 2025-01-10 | Outpatient (CLI) | payer MEDICARE, SELFPAY ==
[2025-01-10 19:21] LABS: Potassium 5.2 mmol/L (3.3-5.1)
== END | disposition home or self-care (01) ==
LOC: MTLAB 15:02
PROVIDERS: PCP Nurse Practitioner Family; Referring Provider Nurse Practitioner Family; Visit Provider Nurse Practitioner Family
DX: E87.5 Hyperkalemia (principal)
CPT/HCPCS: 36415; 84132